=== PATIENT | male | born 1955 | race Caucasian/White ===

== ENCOUNTER 2022-10-21 01:53 | Inpatient (IN) | payer MEDICARE, MEDICAID, SELFPAY ==
[2022-10-21] VITALS (8 sets, daily range): BP systolic 102–136; BP diastolic 44–72; PULSE 75–88; RESP 16–18; TEMP 36.4–37.6; O2SAT 96–99; BMI 18.4
--- NOTE | ~2022-10-21 | CT_ITS ---
EXAMINATION: CT BRAIN W/O DATE: 10/24/2022 11:36 INDICATION: Headaches TECHNIQUE: Computed tomography (CT) of the head was performed without and with 100 cc Omnipaque 350 i ntravenous contrast. The dose-length product was 1210.67 mGy-cm. Automated exposure control and itera tive reconstruction technique were employed. COMPARISON: No prior studies for comparison. FINDINGS: Normal brain parenchymal volume for age. Normal hope-white differentiation. No acute intrac ranial hemorrhage, infarction, mass or mass effect. No abnormal contrast enhancement. No ventriculomegaly or midline shift. Midline sagittal images demonstrate a normal corpus callosum, c raniovertebral junction and sella turcica. Basilar cisterns are patent. Paranasal sinuses and mastoids are pneumatized. No depressed skull fractures. IMPRESSION: 1. No acute intracranial abnormality. Reviewed, dictated and finalized at location B. GE CONTROL SPECIALIST
--- NOTE | ~2022-10-21 | XR_ITS ---
EXAMINATION: XR chest 1V portable DATE: 10/23/2022 14:49 INDICATION: Right hilar mass status post bronchoscopy. TECHNIQUE: A single frontal view of the chest was obtained. COMPARISON: Chest CT 10/20/2022, radiographs 10/21/2022 FINDINGS: There is a moderate-sized right pleural effusion. There is a right hilar mass. There are ai rspace opacities at right lung base. No pneumothorax. The heart size is normal. IMPRESSION: 1. Right hilar mass, consistent with malignancy. 2. Airspace opacities at right lung base, consistent with pneumonia. 3. Moderate-sized right pleural effusion. Reviewed, dictated and finalized at location A. OM HARVESTER
--- NOTE | ~2022-10-21 | US_ITS ---
EXAMINATION: US thoracentesis DATE: 10/24/2022 12:31 INDICATION: pleural effusion TECHNIQUE: The procedure and its risks, benefits, and alternatives were discussed with the patient. P otential risks discussed included bleeding, infection, and pneumothorax. The patient understood the r isks and agreed to proceed. The skin was prepped and draped in sterile fashion. 1% lidocaine was used for local anesthesia. Under ultrasound guidance, a 5 Fr catheter with trochar was advanced into the right pleural effusion versus pleural thickening. Fluid could not be aspirated. The catheter was reginaldo kirill, and a dressing was applied. There were no immediate complications. FINDINGS: Ultrasound images demonstrate a right pleural effusion versus pleural thickening and the catheter wit hin the abnormality. IMPRESSION: 1. Small right pleural effusion versus pleural thickening. Ultrasound-guided thoracentesis yielded no fluid. Reviewed, dictated and finalized at location A. LE MAKER IMPRESSION: 1. Small right pleural effusion versus pleural thickening. Ultrasound-guided th oracentesis yielded no fluid.
--- NOTE | ~2022-10-21 | XR_ITS ---
EXAMINATION: [id number] DATE: 10/24/2022 11:23 INDICATION: Right pleural effusion status post thoracentesis. TECHNIQUE: Frontal and lateral views of the chest were obtained. COMPARISON: Chest 2 views 10/21/2022, chest CT 10/20/2022 FINDINGS: There is a small right pleural effusion versus pleural thickening. There are airspace opaci ties in right perihilar region and right lung base. No pneumothorax. The heart size is normal. There are multiple old healed right rib fractures. IMPRESSION: 1. Stable airspace opacities in right hilar perihilar region and at right lung base, likely a combina tion of malignancy, atelectasis, and pneumonia. 2. Stable small right pleural effusion versus pleural thickening. Reviewed, dictated and finalized at location A. ULAR PHYSICIAN IMPRESSION: 1. Stable airspace opacities in right hilar perihilar region and at right lung base, likely a combination of malignancy, atelectasis, and pneumonia. 2. Stable small right pleural effusion versus pleural thickening.
--- NOTE | ~2022-10-21 | XR_ITS ---
EXAMINATION: XR chest 2V Exam Date/Time: 10/21/2022 9:00 PAYROLL LEAD HISTORY: cough Comparison: None available. RESULT: Lines, tubes, and devices: None. Lungs and pleura: Bibasilar consolidation. Moderate right lateral costophrenic angle blunting. Cardiomediastinal silhouette: Unremarkable. Other: No acute osseous or upper abdominal finding. IMPRESSION: Right basilar atelectasis/consolidation. Moderate right effusion Reviewed, dictated and finalized at location K. OLL LEAD
--- NOTE | 2022-10-21 02:07 | ADMGEN ---
This patient, Aolnso Camara, was admitted to Medical Room 341-01. Patient/family oriented to hospital policies and general routines including ID bracelet, bed and alarms, visiting hours, pain management, procedures, bathroom and other care routines, personal items, smoking policy, room service/diet, and visiting hours. Information on how to activate the Rapid Response Team has been discussed. Patient/Family are encouraged to report perceived risks to care and to ask questions if they do not understand what they are told or what they should do.
--- NOTE | 2022-10-21 02:42 | PM.IMHP ---
H&P: HPI History of Present Illness Date/Time: 10/21/22 02:42 Chief Complaint: Productive cough Narrative: Patient is a 67-year-old male past medical history of crack cocaine use, tobacco abuse who presents to the ED with unrelenting productive cough and wheezing. patient has not seen a PCP in many years. he quit smoking crack cocaine 5 months ago. He has a 30 pack-year smoking history and has weaned himself down to 1 cigarette a day. She occasionally smokes marijuana. Since stopping crack cocaine he has had productive cough which comes and goes. His current cough is not relenting bring him to the ED for further evaluation. He notes he may lost around 20 lb over last couple years. He otherwise lives alone but depends on the sister as patient does not drive. Next of kin would be sister. He is currently living on social security. in the ED: Patient was seen at [facility]. his vitals were stable, little tachycardic. His agonist pneumonia and treated with Rocephin and Zithromax. Review of Systems Review of Systems: Constitutional: No Fever, No Chills, No Night Sweats, No Fatigue, No Malaise. He endorses unintentional weight loss ENT/Mouth: No Hearing Changes, No Ear Pain, No Nasal Congestion, No Sinus Pain, No Hoarseness, No sore throat, No Rhinorrhea, No Swallowing Difficulty Eyes: No Eye Pain, No Redness, No Vision Changes Cardiovascular: No Chest Pain, No Palpitations, No Dyspnea on Exertion, No Orthopnea, No Claudication, No Edema Respiratory: he endorses productive cough, wheezing Gastrointestinal: No Nausea, No Vomiting, No Diarrhea, No Constipation, No Abdominal Pain, No Heartburn, No Hematochezia, No Melena Genitourinary: No Dysuria, No Urinary Frequency, No Hematuria, No Urinary Incontinence, No Urgency Musculoskeletal: No Arthralgias, No Myalgias, No Joint Swelling, No Joint Stiffness, No Back Pain Skin: No Skin Lesions, No Pruritis, No Hair Changes Neuro: No Weakness, No Numbness, No Paresthesias, No Loss of Consciousness, No Syncope, No Dizziness, No Headache Psych: No Anxiety/Panic, No Depression, No Insomnia Heme: No Bruising, No Bleeding Lymph: No Adenopathy Endocrine: No Polyuria, No Polydipsia, No Temperature Intolerance [facility] Past Medical History Medical History Cocaine abuse Nicotine dependence with current use Family History Family History Mother COPD (chronic obstructive pulmonary disease) Sibling Lung cancer Father Brain cancer Social History Social History (Updated 10/21/22 @ 02:49 by Shoshana Cartagena DO) Social History: he lives alone,does not drive, living on social security. Only family is sister nearby helps get groceries. next of kin is sister. Years smoked: 34 Smoking status: Current every day smoker Tobacco type: cigarettes Alcohol intake: never Substance use: former Substance use type: crack/cocaine Last use: 5 months ago (05/2022) Lack of Transportation: No Lack of Food: Never True Current Housing: I Have Housing Concerned About Future Housing: No Difficulty Paying Gas/Electric Bills: No Difficulty Paying for Meds: No Currently Unemployed: No Education: High School Diploma/GED Difficulty w/ Childcare or Family Care: No Living arrangements: alone Additional occupation/education comments: on social security Spiritual care concerns: No Meds Home Medications and Allergies Home Medications Medication Instructions Recorded Confirmed Type ferrous sulfate 325 mg (65 mg 325 mg PO DAILY 10/21/22 10/21/22 History iron) tablet ibuprofen 600 mg tablet 600 mg PO Q6H PRN Pain 10/21/22 10/21/22 History multivitamin 1 tablet PO DAILY 10/21/22 10/21/22 History Allergies Allergy/AdvReac Type Severity Reaction Status Date / Time No Known Allergies Allergy Verified 10/21/22 02:31 Vital Signs hear
[2022-10-21] MEDS: SODIUM CHLORIDE 0.9% IV 1,000 ML 100 ML IV CONT ×2 (03:03→16:01)
[2022-10-21] MEDS: traZODone HCL 50 MG TABLET PO ×2 (03:03→20:27)
[2022-10-21 03:36] LABS: Basophils Absolute Auto 0.1 K/mm3 (0.0-0.1); Basophils Percent Auto 0.3 % (0.2-1.2); Hematocrit 29.7 % (42.0-52.0); Immature Granulocyte Absolute 0.33 K/mm3 (0.00-0.031); Immature Granulocyte Percent A 1.5 % (0-0.5); Lymphocytes Absolute Auto 1.36 K/mm3 (0.9-3.2); Lymphocytes Percent Auto 6.1 % (18.3-44.2); Mean Corpuscular HGB Conc 30.3 g/dl (32-36); Mean Corpuscular Hemoglobin 23.3 pg (26-34); Mean Corpuscular Volume 76.9 fl (80-100); Mean Platelet Volume 8.6 fl (7.4-10.4); Monocytes Absolute Auto 1.1 K/mm3 (0.1-0.6); Monocytes Percent Auto 5.1 % (2.6-8.5); Neutrophils Absolute Auto 19.2 K/mm3 (1.3-6.7); Platelet Count Result 343 k/mm3 (150-375); Red Blood Count 3.86 M/mm3 (4.6-6.20); Red Cell Distribution Width 17.3 % (11.5-14.5); White Blood Count 22.1 K/mm3 (4.5-10.0)
[2022-10-21 03:47] LABS: Alanine Aminotransferase 18 U/L (6-50); Albumin Level 3.1 g/dL (3.5-5.1); Alkaline Phosphatase 70 U/L (38-126); Anion Gap 7 mmol/L (8-16); Aspartate Amino Transferase 22 U/L (17-59); Bilirubin,Total 0.6 mg/dL (0.2-1.3); Blood Urea Nitrogen 15 mg/dL (9-20); Calcium 9.2 mg/dL (8.4-10.2); Carbon Dioxide 26 mmol/L (22-30); Chloride 100 mmol/L (98-107); Estimated CRCL calculation 54 ml/min; Estimated Glomerular Filt Rate > 60; Glucose 148 mg/dL (65-110); Magnesium 1.9 mg/dL (1.6-2.3); Potassium 3.8 mmol/L (3.4-5.0); Sodium 133 mmol/L (137-145)
[2022-10-21 04:39] LABS: Platelet Estimate Adequate (Adequate)
[2022-10-21 04:40] LABS: Anisocytosis 1+ (NORMAL); Hypochromasia 1+ (NORMAL); Microcytosis 1+ (NORMAL); Schistocytes None Seen (NORMAL)
[2022-10-21] MEDS: BENZONATATE 100 MG CAPSULE 200 MG PO ×3 (08:31→16:01)
[2022-10-21] MEDS: FERROUS SULFATE 324 MG TABLET PO (08:31)
[2022-10-21] MEDS: MULTIVITAMINS THERAPEUTIC TAB (*BKC) 1 TABLET PO (08:31)
--- NOTE | 2022-10-21 11:40 | PM.CNPUL ---
Assessment and Plan Assessment and plan (1) Community acquired pneumonia: Code(s): J18.9 - Pneumonia, unspecified organism Status: Acute Assessment and Plan: This 67-year-old man presented with chronic shortness of breath some right chest pain, marked leukocytosis, evidence of right lower lobe paraspinal mass extending into the right hilum, and positive blood cultures for Gram-positive cocci in chains drawn at another facility. The patient currently has no symptoms such as fever or hemoptysis and does not look septic. It appears as though he has got a large mass in the right lower lobe which is highly suspicious for malignancy. On the chest CT done at [facility] there was evidence of narrowing of adjacent bronchi and also narrowing of the right pulmonary artery branches suggestive of malignancy. He has been on antibiotics for possible community-acquired pneumonia. In view of positive blood cultures, we will extent coverage by adding vancomycin IV. Will get final culture report from other facility. Patient is scheduled for CT-guided biopsy. At this point will hold the CT-guided biopsy until we get a better picture about his leukocytosis/ positive blood cultures. (2) Pleural effusion: Code(s): J90 - Pleural effusion, not elsewhere classified Status: Acute (3) Lung mass: Code(s): R91.8 - Other nonspecific abnormal finding of lung field Status: Acute Assessment and Plan: for History of Present Illness History of Present Illness Consult date: 10/21/22 Chief complaint: New Lung Malignancy, Pneumonia Narrative: This 67-year-old man presented with shortness of breath and right chest pain. The patient has had shortness of breath with activities for at least 2 months. He also noted some right chest pain. He was recently evaluated by primary care physician at [place] where he reportedly underwent chest CT. chest CT images are now available for review. The chest CT showed no evidence of pulmonary embolism. There was a 10 cm paraspinal consolidation/mass extending into the perihilar region suspicious for malignancy, 1.5 cm indeterminate left adrenal nodule and 6 mm nodule in the left anterior lung apex. In addition there was small right pleural effusion; upon questioning the patient admitted having shortness of breath primarily on exertion for the last 2 months, some right upper chest pain but no fever chills night sweats or wheezing. He also stated he had some blood in his sputum that according to him was related to a dental problem. He had no true hemoptysis; he has lost significant amount of weight over the last year. In addition he has had headaches for which he was taking anti-inflammatory agents over the counter. Patient stated that he also had head MRI at [facility] which is not available for review. Patient used to smoke up to 2 packs per day for 30 years. He also used crack cocaine but stopped it approximately 5 months ago. Blood cultures drawn at [facility], [place], operated by [facility] showed Gram-positive cocci in chains in both bottles. Review of Systems Review of Systems: Patient reports some weight loss. He sleeps with the head elevated because of back pain. He has no acid reflux symptoms. He has had some loose bowel movements. He has had black stool as he has been on iron supplements for anemia. He has no urinary complaints. He has no lower extremity edema. The remainder of the 12 point system review is negative. [facility] Past Medical History Medical History Cocaine abuse Nicotine dependence with current use Family History Family History Mother COPD (chronic obstructive pulmonary disease) Sibling Lung cancer Father Brain cancer Social History Social History (Updated 10/21/22 @ 02:49 by Shoshana Cartagena DO) Social History: he lives alone,does not
[2022-10-22 04:16] VITALS: BP 100/69; PULSE 88; RESP 18; TEMP 37; O2SAT 98
[2022-10-22 05:46] LABS: Estimated CRCL calculation 61 ml/min; Estimated Glomerular Filt Rate > 60
[2022-10-22 08:16] LABS: Basophils Absolute Auto 0.1 K/mm3 (0.0-0.1); Basophils Percent Auto 0.8 % (0.2-1.2); Eosinophils Absolute Auto 0.1 K/mm3 (0-0.3); Eosinophils Percent Auto 0.9 % (0-4.4); Hematocrit 28.4 % (42.0-52.0); Hemoglobin 8.6 g/dL (14.0-18.0); Immature Granulocyte Absolute 0.08 K/mm3 (0.00-0.031); Immature Granulocyte Percent A 0.6 % (0-0.5); Lymphocytes Absolute Auto 1.52 K/mm3 (0.9-3.2); Lymphocytes Percent Auto 12.2 % (18.3-44.2); Mean Corpuscular HGB Conc 30.3 g/dl (32-36); Mean Corpuscular Hemoglobin 23.2 pg (26-34); Mean Corpuscular Volume 76.5 fl (80-100); Mean Platelet Volume 9.4 fl (7.4-10.4); Monocytes Absolute Auto 1.2 K/mm3 (0.1-0.6); Monocytes Percent Auto 9.8 % (2.6-8.5); Neutrophils Absolute Auto 9.4 K/mm3 (1.3-6.7); Neutrophils Percent Auto 75.7 % (45.5-73.1); Platelet Count Result 376 k/mm3 (150-375); Red Blood Count 3.71 M/mm3 (4.6-6.20); Red Cell Distribution Width 17.6 % (11.5-14.5); White Blood Count 12.4 K/mm3 (4.5-10.0)
[2022-10-22] MEDS: FERROUS SULFATE 324 MG TABLET PO (09:14)
[2022-10-22] MEDS: MULTIVITAMINS THERAPEUTIC TAB (*BKC) 1 TABLET PO (09:14)
[2022-10-22] MEDS: BENZONATATE 100 MG CAPSULE 200 MG PO ×3 (09:14→17:35)
[2022-10-22] MEDS: ENOXAPARIN 40 MG/0.4 ML SYRINGE SUB-Q (09:14)
[2022-10-22] MEDS: SODIUM CHLORIDE 0.9% IV 1,000 ML 100 ML IV CONT (09:15)
--- NOTE | 2022-10-22 09:29 | PM.IMPN ---
Progress Note: A&P Assessment and Plan (1) Community acquired pneumonia: Code(s): J18.9 - Pneumonia, unspecified organism Status: Acute Assessment and Plan: Continue IV azithromycin and Rocephin. Appreciate pulmonary input Blood cultures at outside hospital grew Gram-positive cocci in chains. IV vancomycin added per Pulmonary. Once cultures are finalized will taper antibiotics (2) Lung malignancy: Code(s): C34.90 - Malignant neoplasm of unspecified part of unspecified bronchus or lung Status: Acute Assessment and Plan: Pulmonary consulted. Patient will likely need CT-guided biopsy or bronchoscopy. Wait until blood cultures are finalized Has 30 pack-year smoking history and has cut down to 1 cigarette daily. I have counseled patient on smoking cessation 5 minutes Subjective Date/time seen: 10/22/22 09:29 Patient reports nausea and lack of sleep Review of Systems Review of Systems: All systems reviewed & are unremarkable except as noted in HPI and below Exam Narrative: GENERAL APPEARANCE: Well developed, well nourished, alert and cooperative, looking chronically ill and in no respiratory distress while breathing ambient air. SKIN: Inspection of the skin reveals no rashes, ulcerations or petechiae. HEENT: Sclerae anicteric and conjunctivae pink and moist. Extraocular movements were intact and pupils were equal, round. poor dental hygiene NECK: Supple. There was no thyroid enlargement, and no tenderness, or masses were felt. CHEST: Normal AP diameter and normal contour without any kyphoscoliosis. LUNGS: Auscultation of the lungs revealed decreased breath sounds right base posteriorly CARDIAC: There was a regular rate and rhythm without any murmurs, gallops, rubs. ABDOMEN: Soft and nontender with normal bowel sounds. There was no organomegaly. LYMPH NODES: No lymphadenopathy was appreciated in the neck. EXTREMITIES: No cyanosis, clubbing or edema. NEUROLOGIC: Alert and oriented x 3. Normal affect. Objective Data Vital Signs Vital Signs: Vital Signs - 24 hr 10/21/22 14:00 10/21/22 20:03 10/21/22 20:12 Temperature 99.6 F 98.5 F Pulse Rate 79 75 75 Respiratory Rate 18 18 16 Blood Pressure 136/44 L 102/72 Pulse Oximetry 99 99 97 Oxygen Delivery Room Air 10/21/22 20:00 10/21/22 22:37 10/22/22 04:16 Temperature 98.6 F Pulse Rate 75 88 88 Respiratory Rate 16 16 18 Blood Pressure 100/69 Pulse Oximetry 97 96 98 Oxygen Delivery Room Air Room Air 10/22/22 08:00 Temperature Pulse Rate Respiratory Rate Blood Pressure Pulse Oximetry Oxygen Delivery Room Air Intake/Output Intake/Output: Intake & Output 10/19/22 10/20/22 10/21/22 10/22/22 23:59 23:59 23:59 23:59 Intake Total 2630 / 2630 1800 / 1800 Output Total 1250 / 1250 500 / 500 Balance 1380 / 1380 1300 / 1300 Meds/Results Medications: Active Medications Generic Name Dose Route Start Last Admin Trade Name Freq PRN Reason Stop Dose Admin Acetaminophen 650 mg 10/21/22 02:34 Acetaminophen 325 Mg Tablet PO Q4H PRN Mild Pain (1-3) or Fever Hydrocodone Bitart/Acetaminophen 1 tab 10/21/22 02:34 Hydrocodone/Acetaminophen (*Crx) 5-325 Mg Tablet PO Q4H PRN Moderate Pain (4-6) Al Hydrox/Mg Hydrox/Simethicone 30 ml 10/21/22 02:34 Mag Hydrox/Al Hydrox/Simeth 30 Ml Udc PO QID PRN Dyspepsia Albuterol 2.5 mg 10/21/22 02:41 Albuterol Sulfate Neb 2.5 Mg/3 Ml Inh INHALATION Q6HRT PRN Shortness Of Breath Benzonatate 200 mg 10/21/22 09:00 10/22/22 09:14 Benzonatate 100 Mg Capsule PO 200 mg TID IRASEMA Administration Enoxaparin Sodium 40 mg 10/22/22 09:00 10/22/22 09:14 Enoxaparin 40 Mg/0.4 Ml Syringe SUB-Q 40 mg DAILY IRASEMA Administration Ferrous Sulfate 324 mg 10/21/22 08:00 10/22/22 09:14 Ferrous Sulfate 324 Mg Tablet PO 324 mg DAILY@0800 IRASEMA Administration Sodium Chloride 1,000 mls @ 100 mls/hr 10/03
--- NOTE | 2022-10-22 09:47 | PM.PNPUL ---
Progress Note: A&P Assessment and Plan (1) Lung mass: Code(s): R91.8 - Other nonspecific abnormal finding of lung field Status: Acute Assessment and Plan: ?This 67-year-old man presented with chronic shortness of breath, right chest pain, marked leukocytosis, evidence of right lower lobe paraspinal mass extending into the right hilum, and? positive blood cultures for Gram-positive cocci in chains drawn at another facility. The patient currently has no symptoms such as fever or hemoptysis and does not look septic.? It appears as though he has got a large mass in the right lower lobe which is highly suspicious for malignancy.? On the chest CT done at [facility] there was evidence of narrowing of adjacent bronchi and also narrowing of the right pulmonary artery branches suggestive of malignancy.? He has been on antibiotics for possible community-acquired pneumonia.? In view of positive blood cultures at the other facility, we added vancomycin IV. ? Will get final culture report from other facility. blood cultures drawn here negative so far. Sputum culture also negative. Plan: Patient will be scheduled for bronchoscopy in a.m.? hold Lovenox subQ, keep patient NPO after midnight, DC vibrating vest, decrease IV fluids continue with current antibiotics for now. (2) Pleural effusion: Code(s): J90 - Pleural effusion, not elsewhere classified Status: Acute (3) Community acquired pneumonia: Code(s): J18.9 - Pneumonia, unspecified organism Status: Acute Subjective Date/time seen: 10/22/22 09:47 Patient has no new respiratory symptoms. He has been afebrile coughing up clear phlegm. No hemoptysis. Shortness of breath essentially unchanged. Complaining of upset stomach and diarrhea. Did not tolerate vibrating vest treatment. On antibiotics for possible respiratory infection. Review of Systems Review of Systems: All systems reviewed & are unremarkable except as noted in HPI and below Exam Narrative: GENERAL APPEARANCE: Well developed, well nourished, alert and cooperative, looking chronically ill and in no respiratory distress while breathing ambient air. SKIN: Inspection of the skin reveals no rashes, ulcerations or petechiae. HEENT: Sclerae anicteric and conjunctivae pink and moist. Extraocular movements were intact and pupils were equal, round. poor dental hygiene NECK: Supple. There was no thyroid enlargement, and no tenderness, or masses were felt. CHEST: Normal AP diameter and normal contour without any kyphoscoliosis. LUNGS: Auscultation of the lungs revealed decreased breath sounds right base posteriorly CARDIAC: There was a regular rate and rhythm without any murmurs, gallops, rubs. ABDOMEN: Soft and nontender with normal bowel sounds. There was no organomegaly. LYMPH NODES: No lymphadenopathy was appreciated in the neck. EXTREMITIES: No cyanosis, clubbing or edema. NEUROLOGIC: Alert and oriented x 3. Normal affect. Objective Data Vital Signs Vital Signs: Vital Signs - 24 hr 10/21/22 14:00 10/21/22 20:03 10/21/22 20:12 Temperature 37.6 C 36.9 C Pulse Rate 79 75 75 Respiratory Rate 18 18 16 Blood Pressure 136/44 L 102/72 Pulse Oximetry 99 99 97 Oxygen Delivery Room Air 10/21/22 20:00 10/21/22 22:37 10/22/22 04:16 Temperature 37.0 C Pulse Rate 75 88 88 Respiratory Rate 16 16 18 Blood Pressure 100/69 Pulse Oximetry 97 96 98 Oxygen Delivery Room Air Room Air 10/22/22 08:00 Temperature Pulse Rate Respiratory Rate Blood Pressure Pulse Oximetry Oxygen Delivery Room Air Intake/Output Intake/Output: Intake & Output 10/19/22 10/20/22 10/21/22 10/22/22 23:59 23:59 23:59 23:59 Intake Total 2630 1800 Output Total 1250 500 Balance 1380 1300 Meds/Results Medications: Active Medications Generic Name Dose Route Start Last Admin Trade Name Freq PRN Reason Stop Dose Admin Acetaminophen 650 mg 10/21/22 02:34 Acetaminophen 325
[2022-10-22 11:01] LABS: INR 1.4; Prothrombin Time 16.5 Seconds (11.1-14.7)
[2022-10-22 14:00] VITALS: BP 123/69; PULSE 68; RESP 16; TEMP 36.6; O2SAT 99
[2022-10-22 19:27] VITALS: BP 124/70; PULSE 82; RESP 18; TEMP 36.9; O2SAT 97
[2022-10-22 20:00] VITALS: PULSE 82; RESP 18; O2SAT 97
[2022-10-22] MEDS: traZODone HCL 50 MG TABLET PO (22:55)
[2022-10-23] VITALS (11 sets, daily range): BP systolic 100–126; BP diastolic 51–81; PULSE 56–92; RESP 16–25; TEMP 36.5–37.1; O2SAT 96–100; BMI 18.4
[2022-10-23 08:07] LABS: Basophils Absolute Auto 0.1 K/mm3 (0.0-0.1); Basophils Percent Auto 1.2 % (0.2-1.2); Eosinophils Absolute Auto 0.2 K/mm3 (0-0.3); Eosinophils Percent Auto 2.4 % (0-4.4); Hematocrit 29.7 % (42.0-52.0); Hemoglobin 9.1 g/dL (14.0-18.0); Immature Granulocyte Absolute 0.05 K/mm3 (0.00-0.031); Immature Granulocyte Percent A 0.6 % (0-0.5); Lymphocytes Absolute Auto 2.09 K/mm3 (0.9-3.2); Lymphocytes Percent Auto 23.5 % (18.3-44.2); Mean Corpuscular HGB Conc 30.6 g/dl (32-36); Mean Corpuscular Hemoglobin 23.5 pg (26-34); Mean Corpuscular Volume 76.5 fl (80-100); Mean Platelet Volume 8.9 fl (7.4-10.4); Monocytes Percent Auto 11.1 % (2.6-8.5); Neutrophils Absolute Auto 5.4 K/mm3 (1.3-6.7); Neutrophils Percent Auto 61.2 % (45.5-73.1); Platelet Count Result 376 k/mm3 (150-375); Red Blood Count 3.88 M/mm3 (4.6-6.20); Red Cell Distribution Width 17.6 % (11.5-14.5); White Blood Count 8.9 K/mm3 (4.5-10.0)
[2022-10-23 08:16] LABS: Anion Gap 6 mmol/L (8-16); Blood Urea Nitrogen 11 mg/dL (9-20); Carbon Dioxide 27 mmol/L (22-30); Chloride 104 mmol/L (98-107); Estimated CRCL calculation 69 ml/min; Estimated Glomerular Filt Rate > 60; Glucose 101 mg/dL (65-110); Phosphorus 3.2 mg/dL (2.5-4.5); Potassium 3.8 mmol/L (3.4-5.0); Sodium 137 mmol/L (137-145)
[2022-10-23] MEDS: FERROUS SULFATE 324 MG TABLET PO (08:43)
[2022-10-23] MEDS: BENZONATATE 100 MG CAPSULE 200 MG PO ×2 (08:43→12:02)
[2022-10-23] MEDS: MULTIVITAMINS THERAPEUTIC TAB (*BKC) 1 TABLET PO (08:43)
[2022-10-23 08:47] LABS: INR 1.3; Prothrombin Time 15.3 Seconds (11.1-14.7)
--- NOTE | 2022-10-23 10:14 | PM.IMPN ---
Progress Note: A&P Assessment and Plan (1) Community acquired pneumonia: Code(s): J18.9 - Pneumonia, unspecified organism Status: Acute Assessment and Plan: patient presents with a cough. Chest CT at the outside hospital showed a 10 cm paraspinal consolidation/ mass extending into the perihilar region suspicious for malignancy. Is also a small right pleural effusion. Does have poor dentition. He had a brain MRI at [facility] but results are unknown. Currently on Rocephin, azithromycin vancomycin. Blood cultures here are no growth to date. Will need to follow up on blood culture results at the outside hospital. Will change to Unasyn cover for anaerobic bacteria. (2) Lung mass: Code(s): R91.8 - Other nonspecific abnormal finding of lung field Status: Acute Assessment and Plan: Pulmonary consulted. He has a30 pack-year smoking history and has cut down to 1 cigarette daily. Consider abscess as well as malignancy. Patient will have bronchoscopy today. Appreciate Pulmonary input. (3) Nicotine dependence with current use: Code(s): F17.200 - Nicotine dependence, unspecified, uncomplicated Status: Acute Assessment and Plan: Patient was educated about the benefits of smoking cessation. (4) Cocaine abuse: Code(s): F14.10 - Cocaine abuse, uncomplicated Status: Acute Assessment and Plan: Patient was educated about the benefits of abstaining from drug use. He is agreeable for HIV and hepatitis testing. (5) Anemia: Code(s): D64.9 - Anemia, unspecified Status: Acute Assessment and Plan: Patient with microcytic anemia. He is currently on iron. Consider GI malignancy with mets to lung. Will check iron studies, ferritin and B12. Stool guaiac as well. Subjective Date/time seen: 10/23/22 10:14 Interval history: 67yo male with hx of cocaine use here for cough and found to have lung mass and PNA. Assuming care. Chart reviewed. Patient denies feeling short of breath. Still has cough productive clear sputum. No hemoptysis. No abdominal pain. No chest pain. Slight headache today. Exam Narrative: AF 98.0 118/79 76 16 99% ra Gen - NARD Chest -Decreased breath sounds right mid and lower lung field. Dull to percussion the right lower lung field. Normal respiratory rate. CV - RRR S1/S2 Abd - Soft, NT/ND, Positive BS Ext - No pedal edema Psych - Nml mood and affect Skin - Warm and dry Objective Data Vital Signs Vital Signs: Vital Signs - 24 hr 10/22/22 14:00 10/22/22 19:27 10/22/22 20:00 Temperature 97.9 F 98.4 F Pulse Rate 68 82 82 Respiratory Rate 16 18 18 Blood Pressure 123/69 124/70 Pulse Oximetry 99 97 97 Oxygen Delivery Room Air 10/23/22 04:18 Temperature 98 F Pulse Rate 76 Respiratory Rate 16 Blood Pressure 118/79 Pulse Oximetry 99 Oxygen Delivery Intake/Output Intake/Output: Intake & Output 10/20/22 10/21/22 10/22/22 10/23/22 23:59 23:59 23:59 23:59 Intake Total 2630 3494 800 Output Total 1250 1600 1100 Balance 1380 1894 -300 Meds/Results Medications: Active Medications Generic Name Dose Route Start Last Admin Trade Name Freq PRN Reason Stop Dose Admin Acetaminophen 650 mg 10/21/22 02:34 Acetaminophen 325 Mg Tablet PO Q4H PRN Mild Pain (1-3) or Fever Hydrocodone Bitart/Acetaminophen 1 tab 10/21/22 02:34 Hydrocodone/Acetaminophen (*Crx) 5-325 Mg Tablet PO Q4H PRN Moderate Pain (4-6) Al Hydrox/Mg Hydrox/Simethicone 30 ml 10/21/22 02:34 Mag Hydrox/Al Hydrox/Simeth 30 Ml Udc PO QID PRN Dyspepsia Albuterol 2.5 mg 10/21/22 02:41 Albuterol Sulfate Neb 2.5 Mg/3 Ml Inh INHALATION Q6HRT PRN Shortness Of Breath Benzonatate 200 mg 10/21/22 09:00 10/23/22 08:43 Benzonatate 100 Mg Capsule PO 200 mg TID IRASEMA Administration Enoxaparin Sodium 40 mg 10/22/22 09:00 10/22/22
[2022-10-23 11:26] LABS: Iron 26 ug/dL (49-181); Percent Iron Saturation 12 % (20-50)
[2022-10-23 11:31] LABS: Hepatitis B Surface Antigen Negative (Negative)
[2022-10-23 11:35] LABS: HIV 1/2 Ab P24 Ag Result Negative (Negative)
[2022-10-23 11:37] LABS: HAV RESULT Negative (Negative); Hepatitis B Core IgM Result Negative (Negative)
[2022-10-23 11:49] LABS: Hepatitis C Virus Antibody Negative (Negative)
[2022-10-23 12:01] LABS: Folic Acid 12.3 ng/mL (2.76->20)
[2022-10-23] MEDS: AMPICILLIN SULB 3 GM/NS 100 ML 3 GM/100 ML VIAL IVPB ×3 (12:02→23:24)
[2022-10-23] MEDS: ACETAMINOPHEN 325 MG TABLET 650 MG PO (12:03)
[2022-10-23] MEDS: LACTATED RINGERS 1,000 ML 150 ML IV CONT (12:39)
--- NOTE | 2022-10-23 13:24 | WPDANESEPPF ---
Anes - Initial Pre Proc Eval Procedure: Operation Date: 10/23/22 13:30 Proposed Procedures p Flexible Bronchoscopy - Yordan Guzman MD Date/Time: 10/23/22 13:24 Surgeon: Tino Leroy MD Pre Op Diagnosis: New Lung Malignancy, Pneumonia Patient Data Age: 67 Gender: M Height: 1.7 m Weight: 53.5 kg Last Vital Signs Temp 97.7 F 10/23/22 12:35 Pulse 56 L 10/23/22 12:35 Resp 20 10/23/22 12:35 BP 125/81 10/23/22 12:35 Pulse Ox 98 10/23/22 12:35 O2 Del Method Room Air 10/23/22 12:35 Allergies Allergy/AdvReac Type Severity Reaction Status Date / Time No Known Allergies Allergy Verified 10/23/22 12:30 Home Medications Medication Instructions Recorded Confirmed Type ferrous sulfate 325 mg (65 mg 325 mg PO DAILY 10/21/22 10/21/22 History iron) tablet ibuprofen 600 mg tablet 600 mg PO Q6H PRN Pain 10/21/22 10/21/22 History multivitamin 1 tablet PO DAILY 10/21/22 10/21/22 History Laboratory Tests 10/23/22 10/23/22 10/23/22 07:46 07:46 08:26 WBC 8.9 K/mm3 K/mm3 (4.5-10.0) RBC 3.88 M/mm3 L M/mm3 (4.6-6.20) Hgb 9.1 g/dL L g/dL (14.0-18.0) Hct 29.7 % L % (42.0-52.0) MCV 76.5 fl L fl (80-100) MCH 23.5 pg L pg (26-34) MCHC 30.6 g/dl L g/dl (32-36) RDW 17.6 % H % (11.5-14.5) Plt Count 376 k/mm3 H k/mm3 (150-375) MPV 8.9 fl fl (7.4-10.4) Immature Gran % (Auto) 0.6 % H % (0-0.5) Neut % (Auto) 61.2 % % (45.5-73.1) Lymph % (Auto) 23.5 % % (18.3-44.2) [place] % (Auto) 11.1 % H % (2.6-8.5) Eos % (Auto) 2.4 % % (0-4.4) Baso % (Auto) 1.2 % % (0.2-1.2) Lymph # (Auto) 2.09 K/mm3 K/mm3 (0.9-3.2) [place] # (Auto) 1.0 K/mm3 H K/mm3 (0.1-0.6) Eos # (Auto) 0.2 K/mm3 K/mm3 (0-0.3) Baso # (Auto) 0.1 K/mm3 K/mm3 (0.0-0.1) Abs Immat Gran (auto) 0.05 K/mm3 H K/mm3 (0.00-0.031) Absolute Neuts (auto) 5.4 K/mm3 K/mm3 (1.3-6.7) Absolute Nucleated RBC 0.0 K/mm3 K/mm3 (0.0-0.012) Nucleated RBC % 0.0 % % (0.0-0.2) PT 15.3 Seconds H Seconds (11.1-14.7) INR 1.3 Sodium 137 mmol/L mmol/L (137-145) Potassium 3.8 mmol/L mmol/L (3.4-5.0) Chloride 104 mmol/L mmol/L (98-107) Carbon Dioxide 27 mmol/L mmol/L (22-30) Anion Gap 6 mmol/L L mmol/L (8-16) BUN 11 mg/dL mg/dL (9-20) Creatinine 0.70 mg/dL mg/dL (0.7-1.3) Estim Creat Clear Calc 69 ml/min ml/min Estimated GFR > 60 (59 - ) Glucose 101 mg/dL mg/dL (65-110) Calcium 9.0 mg/dL mg/dL (8.4-10.2) Phosphorus 3.2 mg/dL mg/dL (2.5-4.5) Magnesium 2.0 mg/dL mg/dL (1.6-2.3) Iron TIBC % Saturation Ferritin Albumin 3.0 g/dL L g/dL (3.5-5.1) Vitamin B12 Folate Hepatitis A IgM Ab Hep Bs Antigen Hep B Core IgM Ab Hepatitis C Ab Screen HIV 1&2 Ab/P24 Ag 4thGn 10/23/22 10/23/22 10/23/22 08:26 08:26 08:26 WBC RBC Hgb Hct MCV MCH MCHC RDW Plt Count MPV Immature Gran % (Auto) Neut % (Auto) Lymph % (Auto) [place] % (Auto) Eos % (Auto) Baso % (Auto) Lymph # (Auto) [place] # (Auto) Eos # (Auto) Baso # (Auto) Abs Immat Gran (auto) Absolute Neuts (auto) Absolute Nucleated RBC Nucleated RBC % PT INR Sodium Potassium Chloride Carbon
[2022-10-23] MEDS: LIDOCAINE HCL 2% LOCAL INJ 20 ML VIAL INFILTRATE (14:14)
[2022-10-23] MEDS: SODIUM CHLORIDE 0.9% IV 500 ML BAG 25 ML IRRIGATION (14:15)
--- NOTE | 2022-10-23 14:16 | SUR.OPER ---
2ml lidocaine and 25ml Normal saline intrabronchial. 100ml out in bronchial washings.
--- NOTE | 2022-10-23 15:45 | PM.PNPUL ---
Progress Note: A&P Assessment and Plan (1) Lung mass: Code(s): R91.8 - Other nonspecific abnormal finding of lung field Status: Acute Assessment and Plan: ?This 67-year-old man presented with chronic shortness of breath, right chest pain, marked leukocytosis, evidence of right lower lobe paraspinal mass extending into the right hilum, and? positive blood cultures for Gram-positive cocci in chains drawn at another facility. The patient currently has no symptoms such as fever or hemoptysis and does not look septic.? It appears as though he has got a large mass in the right lower lobe which is highly suspicious for malignancy.? On the chest CT done at [facility] there was evidence of narrowing of adjacent bronchi and also narrowing of the right pulmonary artery branches suggestive of malignancy.? He has been on antibiotics for possible community-acquired pneumonia.? In view of positive blood cultures at the other facility, we added vancomycin IV. blood cultures drawn here negative so far. Sputum culture also negative. Patient underwent bronchoscopy earlier today. Bronchoscopy showed large tumor occluding bronchus intermedius right after take off of the right upper lobe bronchus. tumor extended into the orifice of the right upper lobe bronchus as well. Could not advance scope in either the right upper or right lower lobe due to narrowing of bronchi. multiple biopsies were obtained from the intraluminal mass. Plan: Continue with current antibiotic regimen for possible lower respiratory tract infection/obstructive pneumonia. Need to get final blood culture report from other facility. On today's post procedure x-ray there was evidence of increasing right pleural effusion for which the patient will need thoracentesis to exclude empyema versus metastatic disease. I would suggest oncology consultation as well. Case was discussed with Dr. Davis. (2) Pleural effusion: Code(s): J90 - Pleural effusion, not elsewhere classified Status: Acute (3) Community acquired pneumonia: Code(s): J18.9 - Pneumonia, unspecified organism Status: Acute Subjective Date/time seen: 10/23/22 15:45 Respiratory status unchanged over the last 24 hours. Patient has no fever chills hemoptysis chest pain or wheezing. He underwent bronchoscopy with bronchial biopsy earlier today. Post bronchoscopy he remains on room air. Review of Systems Review of Systems: All systems reviewed & are unremarkable except as noted in HPI and below Exam Narrative: GENERAL APPEARANCE: Well developed, well nourished, alert and cooperative, looking chronically ill and in no respiratory distress while breathing ambient air. SKIN: Inspection of the skin reveals no rashes, ulcerations or petechiae. HEENT: Sclerae anicteric and conjunctivae pink and moist. Extraocular movements were intact and pupils were equal, round. poor dental hygiene NECK: Supple. There was no thyroid enlargement, and no tenderness, or masses were felt. CHEST: Normal AP diameter and normal contour without any kyphoscoliosis. LUNGS: Auscultation of the lungs revealed decreased breath sounds right base posteriorly CARDIAC: There was a regular rate and rhythm without any murmurs, gallops, rubs. ABDOMEN: Soft and nontender with normal bowel sounds. There was no organomegaly. LYMPH NODES: No lymphadenopathy was appreciated in the neck. EXTREMITIES: No cyanosis, clubbing or edema. NEUROLOGIC: Alert and oriented x 3. Normal affect. Objective Data Vital Signs Vital Signs: Vital Signs - 24 hr 10/22/22 19:27 10/22/22 20:00 10/23/22 04:18 Temperature 36.9 C 36.6 C Pulse Rate 82 82 76 Respiratory Rate 18 18 16 Blood Pressure 124/70 118/79 Pulse Oximetry 97 97 99 Oxygen Delivery Room Air 10/23/22 08:30 10/23/22 12:35 10/23/22 14:17 Temperature 36.5 C 36.6 C Pulse Rate 56 L 91 Respiratory Rate 20 23 H Blood Pressure 125/81 100/64 Pulse Oximetry 98 100 Oxygen
[2022-10-23] MEDS: BENZOCAINE/MENTHOL (*BKC) 18 EA LOZENGE 1 LOZENGE PO (17:28)
--- NOTE | 2022-10-23 19:19 | PDONCCN ---
[facility] - Date of Consult Date/Time: 10/23/22 19:19 Requesting Physician: Tino Leroy MD Primary Care Provider: HIV/AIDS CARE NURSE PHYSICIAN - Consult Narrative Reason for consult: Lung cancer Narrative: Alonso Camara is a 67 year old male with history of smoking nodules down to 1 cigarette a day along with history of drug use came into the hospital with increasing shortness of breath and productive cough. He has lost more than 15 lb weight. He denies any hemoptysis but does have occasional headaches. CT scan was performed at [facility] showed narrowing of adjacent bronchi along with large mass in the right lower lobe suspicious for malignancy. Patient had bronchoscopy done today that showed large intraluminal mass had or vice of the bronchus intermedius in the right upper lobe bronchus. Biopsies were taken. Labs showed microcytic anemia. He denies any bleeding. Vitamin B12 level and iron level also came back low. Chest x-ray showed moderate size right-sided pleural effusion. Review of Systems - Review of Systems All systems reviewed & are unremarkable except as noted in [facility] and [facility] Medical History: Medical History (Last Updated 10/23/22 @ 10:17 by Lionel Davis MD) Cocaine abuse Nicotine dependence with current use Family History: Family History (Last Reviewed 10/21/22 @ 02:48 by Shoshana Cartagena DO) Mother COPD (chronic obstructive pulmonary disease) Sibling Lung cancer Father Brain cancer - Social History Social History: Social History (Last Updated 10/21/22 @ 02:49 by Shoshana Cartagena DO) Alcohol Use: Alcohol intake: never Substance Use: Substance use: former Substance use type: crack/cocaine Last use: 5 months ago (05/2022) Others: Spiritual care concerns: No Living Arrangements: Living arrangements: alone Smoking Status: Smoking status: Current every day smoker Tobacco type: cigarettes Smoking Pack-years: Years smoked: 34 Social Determinants of Health: Has the Lack of Transportation Kept You From Medical Appointments or From Getting Medications?: No Within the Past 12 Months, Were You Worried Whether Your Food Would Run Out Before You Got Money to Buy More?: Never True What is Your Housing Situation Today?: I Have Housing Are You Worried That in the Next 2 Months, You May Not Have Your Own Housing to Live In?: No Do You Have Trouble Paying Your Heating Or Electricity Bill?: No Do You Have Trouble Paying For Medicines?: No Are You Currently Unemployed and Looking for Work?: No Highest Level of Education Completed: High School Diploma/GED Do You Have Trouble With Childcare or the Care of a Family Member?: No Exam - Vital Signs Vital Signs - 24 hr 10/22/22 19:27 10/22/22 20:00 10/23/22 04:18 Temperature 36.9 C 36.6 C Pulse Rate 82 82 76 Respiratory Rate 18 18 16 Blood Pressure 124/70 118/79 Pulse Oximetry 97 97 99 Oxygen Delivery Room Air 10/23/22 08:30 10/23/22 12:35 10/23/22 14:17 Temperature 36.5 C 36.6 C Pulse Rate 56 L 91 Respiratory Rate 20 23 H Blood Pressure 125/81 100/64 Pulse Oximetry 98 100 Oxygen Delivery Room Air Room Air Room Air 10/23/22 14:27 10/23/22 14:37 10/23/22 14:47 Temperature Pulse Rate 86 85 76 Respiratory Rate 20 25 H 20 Blood Pressure 108/65 108/70 113/75 Pulse Oximetry 100 100 100 Oxygen Delivery Room Air Room Air Room Air 10/23/22 14:57 10/23/22 15:06 10/23/22 15:21 Temperature 37.1 C Pulse Rate 79 80 65 Respiratory Rate 24 H 22 H 18 Blood Pressure 111/74 109/75 113/74 Pulse Oximetry 99 100 96 Oxygen Delivery Room Air Room Air - Exam HEENT: EOMI, PERRLA, sclera clear Neck: No: JVD Lungs: clear to auscultation, normal air movement Heart: no murmurs, gallops, or rubs, regular rhythm Abdomen: abdomen soft Extremities: normal pulses Integumentary: no abnormalities Neurological: normal spee
[2022-10-23 21:37] LABS: IFOB Positive Control Positive; Immunochemical Fecal Occult Bl Negative (N)
[2022-10-23] MEDS: traZODone HCL 50 MG TABLET PO (23:23)
[2022-10-24] MEDS: ACETAMINOPHEN 325 MG TABLET 650 MG PO (02:18)
[2022-10-24 04:32] VITALS: BP 122/80; PULSE 67; RESP 18; TEMP 36.6; O2SAT 100
[2022-10-24] MEDS: AMPICILLIN SULB 3 GM/NS 100 ML 3 GM/100 ML VIAL IVPB ×3 (05:44→17:06)
[2022-10-24 06:04] LABS: Basophils Absolute Auto 0.1 K/mm3 (0.0-0.1); Basophils Percent Auto 1.3 % (0.2-1.2); Eosinophils Absolute Auto 0.3 K/mm3 (0-0.3); Eosinophils Percent Auto 3.2 % (0-4.4); Hemoglobin 8.3 g/dL (14.0-18.0); Immature Granulocyte Absolute 0.11 K/mm3 (0.00-0.031); Immature Granulocyte Percent A 1.2 % (0-0.5); Lymphocytes Absolute Auto 2.09 K/mm3 (0.9-3.2); Lymphocytes Percent Auto 22.6 % (18.3-44.2); Mean Corpuscular HGB Conc 29.6 g/dl (32-36); Mean Corpuscular Hemoglobin 22.9 pg (26-34); Mean Corpuscular Volume 77.3 fl (80-100); Mean Platelet Volume 8.8 fl (7.4-10.4); Monocytes Absolute Auto 1.1 K/mm3 (0.1-0.6); Monocytes Percent Auto 11.6 % (2.6-8.5); Neutrophils Absolute Auto 5.6 K/mm3 (1.3-6.7); Neutrophils Percent Auto 60.1 % (45.5-73.1); Platelet Count Result 373 k/mm3 (150-375); Red Blood Count 3.62 M/mm3 (4.6-6.20); Red Cell Distribution Width 17.4 % (11.5-14.5); White Blood Count 9.3 K/mm3 (4.5-10.0)
[2022-10-24 06:25] LABS: Alanine Aminotransferase 33 U/L (6-50); Albumin Level 2.9 g/dL (3.5-5.1); Alkaline Phosphatase 109 U/L (38-126); Anion Gap 8 mmol/L (8-16); Aspartate Amino Transferase 37 U/L (17-59); Bilirubin,Total 0.3 mg/dL (0.2-1.3); Blood Urea Nitrogen 11 mg/dL (9-20); Calcium 8.6 mg/dL (8.4-10.2); Carbon Dioxide 27 mmol/L (22-30); Chloride 104 mmol/L (98-107); Estimated CRCL calculation 69 ml/min; Estimated Glomerular Filt Rate > 60; Glucose 108 mg/dL (65-110); Lactate Dehydrogenase 123 U/L (120-246); Potassium 3.6 mmol/L (3.4-5.0); Sodium 139 mmol/L (137-145)
--- NOTE | 2022-10-24 08:46 | PM.IMPN ---
Progress Note: A&P Assessment and Plan (1) Community acquired pneumonia: Code(s): J18.9 - Pneumonia, unspecified organism Status: Acute Assessment and Plan: Patient presents with a cough. Chest CT at the outside hospital showed a 10 cm paraspinal consolidation/ mass extending into the perihilar region suspicious for malignancy. He also has a right pleural effusion. Does have poor dentition. He had a brain imaging at [facility] but results are unknown. Was on Rocephin, azithromycin vancomycin but rocephin changed to Unasyn. Blood cultures here are no growth to date. Sputum pending. BCx at the OSH showing alpha strept but final results still pending. Discussed with pulmonary (2) Lung mass: Code(s): R91.8 - Other nonspecific abnormal finding of lung field Status: Acute Assessment and Plan: Pulmonary consulted. He has a30 pack-year smoking history and has cut down to 1 cigarette daily. Bronchoscopy 10/23 showing a large intraluminal mass at orifice right bronchus intermedius after takeoff of the right upper lobe bronchus. The mass occludes almost the entirety of the lumen and extends into the bronchus of the right upper lobe. Multiple biopsies taken. Follow up on results. Appreciate Pulmonary input. Given his HUGHES, will try to obtai a copy of the neuroimaging done at [place]. Given the concern for infection and now cancer, will proceed with right thoracentesis. Oncology consulted and apprecaite their input. (3) Anemia: Code(s): D64.9 - Anemia, unspecified Status: Acute Assessment and Plan: Patient with microcytic anemia. He is currently on iron. Stool guaiac negative. Consider GI malignancy with mets to lung. Iron studies mostly consistent with anemia of chronic disease. B12 low end of normal. Check MMA. Advance iron frequency. B12 given. (4) Nicotine dependence with current use: Code(s): F17.200 - Nicotine dependence, unspecified, uncomplicated Status: Acute Assessment and Plan: Patient was educated about the benefits of smoking cessation. (5) Cocaine abuse: Code(s): F14.10 - Cocaine abuse, uncomplicated Status: Acute Assessment and Plan: Patient was educated about the benefits of abstaining from drug use. HIV and hepatitis testing was negative. Subjective Date/time seen: 10/24/22 08:46 Interval history: 67yo male with hx of cocaine use here for cough and found to have lung mass and PNA. No SOB but has LUBIN when walking briskly in the halls. No CP. Still with headache. He has poor dentiion and complains of mouth pain last night but not today. He has a hx of sebaceous cysts and he has a few on his back that hurt. No numbness, tingling or weakness to his extremities. He had neuroimaging in [place] recently. Exam Narrative: AF 97.9 122/80 67 18 100% ra Gen - NARD HEENT - poor dention with broken teeth. no oral lesions or thrush Chest -Decreased breath sounds right mid and lower lung field. mild coarse BS diffusely. CV - RRR S1/S2 Abd - Soft, NT/ND, Positive BS Ext - No pedal edema Psych - Nml mood and affect Skin - Warm and dry. small sebaceous cysts mid back without evidence of infection. Objective Data Vital Signs Vital Signs: Vital Signs - 24 hr 10/23/22 12:35 10/23/22 14:17 10/23/22 14:27 Temperature 97.7 F 98 F Pulse Rate 56 L 91 86 Respiratory Rate 20 23 H 20 Blood Pressure 125/81 100/64 108/65 Pulse Oximetry 98 100 100 Oxygen Delivery Room Air Room Air Room Air 10/23/22 14:37 10/23/22 14:47 10/23/22 14:57 Temperature Pulse Rate 85 76 79 Respiratory Rate 25 H 20 24 H Blood Pressure 108/70 113/75 111/74 Pulse Oximetry 100 100 99 Oxygen Delivery Room Air Room Air Room Air 10/23/22 15:06 10/23/22 15:21 10/23/22 21:14 Temperature 98.7 F 98.8 F Pulse Rate 80 65 92 Respiratory Rate 22 H 18 18 Blood Pressure 109/75 113/74 126/51 L Pulse Oximetry 100 96 98 Oxygen
--- NOTE | 2022-10-24 09:10 | PM.PNPUL ---
Progress Note: A&P Assessment and Plan (1) Lung mass: Code(s): R91.8 - Other nonspecific abnormal finding of lung field Status: Acute Assessment and Plan: ?This 67-year-old man presented with chronic shortness of breath, right chest pain, marked leukocytosis, evidence of right lower lobe paraspinal mass extending into the right hilum, and? positive blood cultures for Gram-positive cocci in chains drawn at another facility. The patient currently has no symptoms such as fever or hemoptysis and does not look septic.? It appears as though he has got a large mass in the right lower lobe which is highly suspicious for malignancy.? On the chest CT done at [facility] there was evidence of narrowing of adjacent bronchi and also narrowing of the right pulmonary artery branches suggestive of malignancy.? He has been on antibiotics for possible community-acquired pneumonia.? In view of positive blood cultures at the other facility, we added vancomycin IV. blood cultures drawn here negative so far. Sputum culture also negative. Patient underwent bronchoscopy Yesterday. Bronchoscopy showed large tumor occluding bronchus intermedius right after take off of the right upper lobe bronchus. tumor extended into the orifice of the right upper lobe bronchus as well. Could not advance scope in either the right upper or right lower lobe due to narrowing of bronchi. multiple biopsies were obtained from the intraluminal mass. Plan: Continue with current antibiotic regimen for possible lower respiratory tract infection/obstructive pneumonia. Need to get final blood culture report from other facility. On today's post procedure x-ray there was evidence of increasing right pleural effusion for which the patient will have thoracentesis to exclude empyema versus metastatic disease. Case was discussed with Dr. Davis. (2) Pleural effusion: Code(s): J90 - Pleural effusion, not elsewhere classified Status: Acute (3) Community acquired pneumonia: Code(s): J18.9 - Pneumonia, unspecified organism Status: Acute Subjective Date/time seen: 10/24/22 09:10 Interval history: Patient has no new respiratory symptoms today. He remains on room air, afebrile post bronchoscopy and bronchial biopsy. Scheduled to undergo right thoracentesis later today. Review of Systems Review of Systems: All systems reviewed & are unremarkable except as noted in HPI and below Exam Narrative: GENERAL APPEARANCE: Well developed, well nourished, alert and cooperative, looking chronically ill and in no respiratory distress while breathing ambient air. SKIN: Inspection of the skin reveals no rashes, ulcerations or petechiae. HEENT: Sclerae anicteric and conjunctivae pink and moist. Extraocular movements were intact and pupils were equal, round. poor dental hygiene NECK: Supple. There was no thyroid enlargement, and no tenderness, or masses were felt. CHEST: Normal AP diameter and normal contour without any kyphoscoliosis. LUNGS: Auscultation of the lungs revealed decreased breath sounds right base posteriorly CARDIAC: There was a regular rate and rhythm without any murmurs, gallops, rubs. ABDOMEN: Soft and nontender with normal bowel sounds. There was no organomegaly. LYMPH NODES: No lymphadenopathy was appreciated in the neck. EXTREMITIES: No cyanosis, clubbing or edema. NEUROLOGIC: Alert and oriented x 3. Normal affect. Objective Data Vital Signs Vital Signs: Vital Signs - 24 hr 10/23/22 12:35 10/23/22 14:17 10/23/22 14:27 Temperature 36.5 C 36.6 C Pulse Rate 56 L 91 86 Respiratory Rate 20 23 H 20 Blood Pressure 125/81 100/64 108/65 Pulse Oximetry 98 100 100 Oxygen Delivery Room Air Room Air Room Air 10/23/22 14:37 10/23/22 14:47 10/23/22 14:57 Temperature Pulse Rate 85 76 79 Respiratory Rate 25 H 20 24 H Blood Pressure 108/70 113/75 111/74 Pulse Oximetry 100 100 99 Oxygen Delivery Room Air Room Air Room Air
[2022-10-24 11:45] VITALS: BP 105/68; PULSE 93; RESP 16; TEMP 36.4; O2SAT 97
[2022-10-24] MEDS: MULTIVITAMINS THERAPEUTIC TAB (*BKC) 1 TABLET PO (12:20)
[2022-10-24] MEDS: BENZONATATE 100 MG CAPSULE 200 MG PO ×2 (12:20→17:05)
[2022-10-24] MEDS: CYANOCOBALAMIN INJ 1,000 MCG/ML VIAL 1000 MCG IM (12:21)
[2022-10-24 13:05] LABS: Vancomycin Trough < 5.0 ug/mL (10.0-20.0)
[2022-10-24 13:21] VITALS: BP 117/82; PULSE 75; RESP 16; TEMP 36.9; O2SAT 98
[2022-10-24] MEDS: FERROUS SULFATE 324 MG TABLET PO (17:06)
--- NOTE | 2022-10-24 17:45 | PM.DS ---
DS: Admitting Diagnosis Discharge Date 10/24/22 Admitting Diagnosis Shortness of breath DS: Discharge Diagnosis Discharge Diagnosis (1) Community acquired pneumonia: Code(s): J18.9 - Pneumonia, unspecified organism Status: Acute (2) Lung mass: Code(s): R91.8 - Other nonspecific abnormal finding of lung field Status: Acute (3) Anemia: Code(s): D64.9 - Anemia, unspecified Status: Acute (4) Nicotine dependence with current use: Code(s): F17.200 - Nicotine dependence, unspecified, uncomplicated Status: Acute (5) Cocaine abuse: Code(s): F14.10 - Cocaine abuse, uncomplicated Status: Acute DS: Summary Hospital Course Reason for hospitalization: 67yo male with hx of cocaine use here for cough and found to have lung mass and PNA. Please see H&P for details Hospital Course: Patient presents with a cough and SOB at an outside hospital.? Chest CT at the outside hospital showed a 10 cm paraspinal consolidation/mass extending into the perihilar region suspicious for malignancy.? He also has a right pleural effusion.?He does have poor dentition.? He was on Rocephin, azithromycin vancomycin but rocephin changed to Unasyn.? Blood cultures here are no growth to date.? Sputum pending. BCx at the OSH showing grew Strept Pneumoniae that was pansensitive. Pulmonary was consulted. He has a 30 pack-year smoking history and has cut down to 1 cigarette daily. Bronchoscopy 10/23 showing a large intraluminal mass at orifice right bronchus intermedius after takeoff of the right upper lobe bronchus. The mass occludes almost the entirety of the lumen and extends into the bronchus of the right upper lobe. Multiple biopsies taken. Oncology was consulted as well. Given his complain of headache, we requested a copy of the neuroimaging done at [place] but no results provided. We proceed with CT head here but this did not show any acute findings. Given the concern for infection and now cancer, we attempted a right thoracentesis but ultrasound showed more likely pleural thickening. Patient with microcytic anemia.? He is currently on iron.? Stool guaiac was negative. Iron studies mostly consistent with anemia of chronic disease. B12 low end of normal adn B12 given. Patient was educated about the benefits of smoking cessation and was educated about the benefits of abstaining from drug use.? HIV and hepatitis testing was negative. He has been up walking in the halls. He overall did well and was able to be discharged home on 10/24/22 Status at Discharge Cognitive/behavioral status at discharge: stable Time Spent with Patient Time attestation: Total time spent providing and/or coordinating discharge services: 37 minutes Time spent: Greater than 30 minutes Exam Narrative: AF 97.9 122/80 67 18 100% ra Gen - NARD HEENT - poor dention with broken teeth. no oral lesions or thrush Chest -Decreased breath sounds right mid and lower lung field. mild coarse BS diffusely. CV - RRR S1/S2 Abd - Soft, NT/ND, Positive BS Ext - No pedal edema Psych - Nml mood and affect Skin - Warm and dry. small sebaceous cysts mid back without evidence of infection. DS: Data Data Completed and Pending Pending studies at discharge: Pending at discharge 10/23/22 14:31 Surgical [PTH] Routine 10/24/22 08:00 Cytology [PTH] Routine Labs on day of discharge: Labs from last 24 hours 10/24/22 10/24/22 10/24/22 12:04 12:04 05:46 WBC RBC Hgb Hct MCV MCH MCHC RDW Plt Count MPV Immature Gran % (Auto) Neut % (Auto) Lymph % (Auto) [place] % (Auto) Eos % (Auto) Baso % (Auto) Lymph # (Auto) [place] # (Auto) Eos # (Auto) Baso # (Auto) Abs Immat Gran (auto) Absolute Neuts (auto) Absolute Nucleated RBC Nucleated RBC % Sodium 139 Potassium 3.6 Chloride 104 Carbon Dioxide 27 Anion Gap 8 BUN 11 Creatinine
[2022-10-26 02:58] LABS: Pneumococcal Antigen Urine Not Detected (Not Detected)
[2022-10-28 12:36] LABS: Methylmalonic Acid 218 nmol/L (87-318)
--- NOTE | 2022-10-31 09:06 | PC.NURSE ---
MMA is 218, Urine pneumococcal Ag is negative, REsp cx is negaitve. PAthology shows invasive carcinoma. Results faxed to Dr. Guzman and Dr. Norton. Dr. Davis aware of findings.
--- NOTE | 2022-10-31 10:03 | PC.NURSE ---
Faxed pathology report to Dr. Guzman and Dr. Norton. Dr. Davis aware of findings.
--- NOTE | 2022-11-19 14:13 | PC.NURSE ---
fungal cx is negative. Dr. Susan nunes.
== END 2022-10-24 18:24 | disposition home or self-care (01) | DRG 180 ==
PROVIDERS: Internal Medicine Pulmonary Disease; Admitting Provider Student in an Organized Health Care Education/Training Program; Visit Provider Internal Medicine
PROC: 0BJ08ZZ Inspection of Tracheobronchial Tree, Via Natural or Artificial Opening Endoscopic (ICD-10-PCS; CPT 31622; principal; 2022-10-23 13:30)
DX: C34.81 Malignant neoplasm of overlapping sites of right bronchus and lung (principal); J18.9 Pneumonia, unspecified organism; R78.81 Bacteremia; D63.8 Anemia in other chronic diseases classified elsewhere; F14.90 Cocaine use, unspecified, uncomplicated; F17.210 Nicotine dependence, cigarettes, uncomplicated; Z11.4 Encounter for screening for human immunodeficiency virus [HIV]
CPT/HCPCS: 32555; 36415; 70470; 71045; 71046; 80053; 80069; 80074; 80202; 82274; 82565; 82607; 82728; 82746; 83540; 83550; 83615; 83735; 83921; 85025; 85610; 86703; 87015; 87040; 87070; 87077; 87102; 87116; 87205; 87206; 87899; 88305; 88342; 94667; 94669; A9270; G0432; J0295; J0330; J0456; J0696; J1650; J2001; J2704; J3370; J3420; J7030; J7040; J7120; Q9967

== ENCOUNTER 2022-11-15 09:08 | Outpatient (CLI) | payer MEDICARE, MEDICAID, SELFPAY ==
--- NOTE | ~2022-11-15 | PE_ITS ---
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 10.160 mCi of 18-fluorodeoxyglucose (18-FDG) was adminis tered i.v. Low dose computed tomography (CT) images were acquired from the base of the brain to the p roximal thighs for attenuation correction and anatomic localization. Positron emission tomography (PE T) images were acquired in the same distribution beginning 57 minutes after injection. The dose-lengt h product (DLP) was 349.81 mGy-cm. COMPARISON: CT, 10/20/2022 FINDINGS: Head/neck: No abnormal FDG uptake is identified. There is physiologic uptake in the vocal cords an or al cavity. Chest: Although difficult to measure with without intravenous contrast, there is an approximately 7.5 x 5.1 cm right hilar/perihilar mass which infiltrates into the subcarinal region of the mediastinum. There is marked associated FDG uptake with SUV max of 22.8. The mass obstructs the right lower lobe bronchi resulting in right lower lobe collapse. There are two FDG avid nodules of the right upper lob e measuring 4 mm. There is a 9 mm FDG avid nodule of the right middle lobe. There is a 1.7 x 1.0 cm r ight upper paratracheal lymph node with abnormal FDG uptake. A pathologically enlarged right lower pa ratracheal lymph node is contiguous with the mass. There is a trace right pleural effusion. No pneumo thorax is identified. The heart size is normal. There is calcified coronary artery atherosclerosis. Abdomen/pelvis/proximal thighs: Physiologic FDG activity is present in the bowel and urinary tract. N o abnormal FDG uptake is identified. The liver, spleen, pancreas, gallbladder, and adrenal glands are normal. The kidneys are unremarkable. No pathologically enlarged abdominal or pelvic lymph nodes are identified. There is no free intraperitoneal gas or evidence of bowel obstruction. There are surgica l changes of the right acetabulum. Calcified atherosclerosis is noted. There is circumferential wall thickening of the urinary bladder which could reflect cystitis versus chronic outlet obstruction. Musculoskeletal: No abnormal FDG uptake is identified. There is pfxa-po-dhnfwyem spondylosis of the s pine. IMPRESSION: 1. Right hilar/perihilar mass which infiltrates into the subcarinal and paratracheal regions of the m ediastinum. 2. Nodules of the right upper and middle lobes and pathologically enlarged mediastinal lymphadenopath y, consistent with metastatic disease. Reviewed, dictated and finalized at location A. OR MANUFACTURING ENGINEER IMPRESSION: 1. Right hilar/perihilar mass which infiltrates into the subcarinal and paratra cheal regions of the mediastinum. 2. Nodules of the right upper and middle lobes and pathologically enlarged medi astinal lymphadenopathy, consistent with metastatic disease.
[2022-11-15 09:35] LABS: Glucose Point of Care 98 mg/dl (65-105)
== END 2022-11-15 09:09 | disposition home or self-care (01) ==
PROVIDERS: Visit Provider Internal Medicine Hematology & Oncology
DX: C34.91 Malignant neoplasm of unspecified part of right bronchus or lung (principal); R91.8 Other nonspecific abnormal finding of lung field
CPT/HCPCS: 78815; A9552

== ENCOUNTER 2022-11-22 11:26 | Outpatient (CLI) | payer MEDICARE, MEDICAID, SELFPAY ==
[2022-11-22 11:41] LABS: Hemoglobin 10.8 g/dL (14.0-18.0); Mean Corpuscular Hemoglobin 22.8 pg (26-34); Mean Corpuscular Volume 75.9 fl (80-100); Mean Platelet Volume 8.8 fl (7.4-10.4); Platelet Count Result 433 k/mm3 (150-375); Red Blood Count 4.74 M/mm3 (4.6-6.20); Red Cell Distribution Width 16.8 % (11.5-14.5); White Blood Count 8.1 K/mm3 (4.5-10.0)
[2022-11-22 15:22] LABS: Iron 16 ug/dL (49-181)
[2022-11-22 15:33] LABS: Percent Iron Saturation 5 % (20-50)
== END 2022-11-22 11:27 | disposition home or self-care (01) ==
LOC: ANHLAB 11:28
PROVIDERS: Visit Provider Internal Medicine Hematology & Oncology
DX: D64.9 Anemia, unspecified (principal)
CPT/HCPCS: 36415; 82607; 82728; 83540; 83550; 85027

== ENCOUNTER 2022-12-05 09:48 | Inpatient (IN) | payer MEDICARE, MEDICAID, SELFPAY ==
[2022-12-05] VITALS (31 sets, daily range): BP systolic 81–143; BP diastolic 56–116; PULSE 65–188; RESP 17–36; TEMP 36.1–37.1; O2SAT 96–100; BMI 17.1
--- NOTE | ~2022-12-05 | CT_ITS ---
EXAMINATION: CTA chest PE protocol DATE: 12/05/2022 12:18 INDICATION: Shortness of breath. TECHNIQUE: Computed tomography angiography (CTA) of the chest was performed with 100 mL Omnipaque-350 intravenous contrast timed to evaluate the pulmonary arteries. Coronal maximum intensity projection 3D-reconstructions were created by the technologist. Automated exposure control and iterative reconst ruction technique were employed. The dose-length product was 156.47 mGy-cm. COMPARISON: Chest CT 10/20/2022, PET/CT 11/15/2022 FINDINGS: There is a 10.6 x 7.9 cm right hilar mass which compresses the proximal right-sided pulmona ry arteries and atria of the heart. There are scattered nodules in the lungs measuring up to 11 mm in left upper lobe. There are tree-in-bud opacities and centrilobular nodules in right upper lobe, cons istent with pneumonia. There is occlusion of the right main stem bronchus. A calcified right lung nod ule and calcified right hilar lymph nodes are consistent with old granulomatous disease. There is a s mall right pleural effusion. The heart is not enlarged. There is a small pericardial effusion. There is mediastinal lymphadenopathy. There is no pulmonary embolus. There is a 12 mm mass in left adrenal gland measuring soft tissue attenuation without increased activity on the prior PET, likely an adenom a. There is mild thoracic spondylosis. IMPRESSION: 1. No pulmonary embolus. 2. 10.6 x 7.9 cm right hilar mass, consistent with primary bronchogenic carcinoma. 3. Pulmonary nodules and enlarged mediastinal lymph nodes, consistent metastatic disease. 4. Postobstructive pneumonia in right upper lobe. 5. Small right pleural effusion. 6. Small malignant pericardial effusion. Reviewed, dictated and finalized at location A. IC HEALTH ENGINEER IMPRESSION: 1. No pulmonary embolus. 2. 10.6 x 7.9 cm right hilar mass, consistent with primary bronchogenic carcino ma. 3. Pulmonary nodules and enlarged mediastinal lymph nodes, consistent metastati c disease. 4. Postobstructive pneumonia in right upper lobe. 5. Small right pleural effusion. 6. Small malignant pericardial effusion.
--- NOTE | ~2022-12-05 | CT_ITS ---
EXAMINATION: CT brain wo con DATE: 12/05/2022 22:18 INDICATION: Headache, lung cancer . TECHNIQUE: Computed tomography (CT) of the head was performed without intravenous contrast. The mA wa s adjusted according to patient size. Iterative reconstruction technique was employed. The dose-lengt h product was 605.33 mGy-cm. COMPARISON: None. FINDINGS: No acute intracranial hemorrhage or extra-axial fluid collection. No hydrocephalus, mass, or herniation. No acute ischemic infarct. Unremarkable dural venous sinus attenuation. No acute osseous abnormality. The aerated spaces are clear. IMPRESSION: No acute intracranial process. Reviewed, dictated and finalized at location K. MOSTATIC CONTROLS SUPERVISOR
--- NOTE | ~2022-12-05 | XR_ITS ---
CORRECTED REPORT Report moved from [id number] to [id number]. This report was recreated on 12/13/2022. Original report was WORKER. 12/13/2022 sef Portable chest x-ray Comparison: 12/05/2022 Clinical History: Mediport placement Findings: Right-sided Mediport is present, in satisfactory position. Moderate right pleural effusion present with mild haziness in the aerated right lung. Left lung remains clear. Cardiomediastinal silhouette is stable. Small calcified right hilar lymph nodes present. Bones and soft tissues are unremarkable. Impression: Right-sided Mediport in satisfactory position. No pneumothorax. Moderate right pleural effusion. Left lung remains clear. Reviewed, dictated and finalized at location M. WORKER [facility]
--- NOTE | ~2022-12-05 | XR_ITS ---
XR chest 1V portable DATE: 12/05/2022 10:18 INDICATION: Shortness of breath TECHNIQUE: Portable upright AP chest on 12/05/2022 at 1014 hours COMPARISON: 10/23/2022 portable AP chest 11/15/2022 PET/CT scan FINDINGS: There is increased right lung volume loss and rightward shift of heart and mediastinum sinc e 10/23/2022 in addition to right pleural effusion. Heart size appears within normal range. Is aortic calcification and unfolding. The left lung appears clear. No left pleural effusion. No pneumothorax. Multiple healed right rib fracture deformities. IMPRESSION: Increased right lung atelectasis and rightward shift of heart and mediastinum since 10/23, due to right lung mass. Mild to moderate right pleural effusion Reviewed, dictated and finalized at location B. LEVEL PRACTITIONER IMPRESSION: Increased right lung atelectasis and rightward shift of heart and m ediastinum since 10/23/2022, due to right lung mass. Mild to moderate right ple ural effusion
--- NOTE | ~2022-12-05 | XR_ITS ---
CORRECTED REPORT Report moved from [id number] to [id number]. This report was recreated on 12/13/2022. Original report was RSION METAL CLEANER. 12/13/2022 ricky EXAMINATION: XR fl guide central line place DATE: 12/07/2022 08:27 INDICATION: Port placement. TECHNIQUE: A single intraoperative fluoroscopic view of the chest was obtained. I was not present. Fluoroscopy exposure time was 38 seconds. COMPARISON: Chest single view 12/07/2022 FINDINGS: There is a right internal jugular catheter with tip in the superior vena cava. There is a right pleural effusion. IMPRESSION: 1. Catheter tip in the superior vena cava. Reviewed, dictated and finalized at location A. RSION METAL CLEANER [facility]
--- NOTE | 2022-12-05 09:49 | ECG_ITS ---
Measurements Intervals [place] Rate: 177 P: [place]: 0 QRS: -27 QRSD: 92 T: 92 QT: 253 QTc: 435 Interpretive Statements ATRIAL FIBRILLATION WITH RAPID VENTRICULAR RESPONSE NONSPECIFIC ST & T-WAVE ABNORMALITY- HIGH LATERAL LEADS BASELINE ARTIFACT- I, V1, V6 ABNORMAL ECG NO PREVIOUS ECG AVAILABLE FOR COMPARISON Electronically Signed On 12-05-2022 10:16:16 ASSEMBLER [employer]ASS[employer] by Ezequiel Cali D.O.
[2022-12-05] MEDS: dilTIAZem HCl INJ 25 MG/5 ML VIAL 10 MG IV PUSH (10:17)
[2022-12-05] MEDS: dilTIAZem 100 MG/100 ML 100 MG/100 ML BAG IV CONT (10:54)
[2022-12-05 11:03] LABS: Basophils Absolute Auto 0.1 K/mm3 (0.0-0.1); Basophils Percent Auto 0.9 % (0.2-1.2); Eosinophils Percent Auto 0.3 % (0-4.4); Hematocrit 36.5 % (42.0-52.0); Hemoglobin 10.9 g/dL (14.0-18.0); Immature Granulocyte Absolute 0.08 K/mm3 (0.00-0.031); Immature Granulocyte Percent A 0.7 % (0-0.5); Lymphocytes Absolute Auto 1.49 K/mm3 (0.9-3.2); Lymphocytes Percent Auto 13.6 % (18.3-44.2); Mean Corpuscular HGB Conc 29.9 g/dl (32-36); Mean Corpuscular Hemoglobin 22.3 pg (26-34); Mean Corpuscular Volume 74.8 fl (80-100); Mean Platelet Volume 9.3 fl (7.4-10.4); Monocytes Absolute Auto 0.9 K/mm3 (0.1-0.6); Monocytes Percent Auto 8.4 % (2.6-8.5); Neutrophils Absolute Auto 8.4 K/mm3 (1.3-6.7); Neutrophils Percent Auto 76.1 % (45.5-73.1); Platelet Count Result 524 k/mm3 (150-375); Red Blood Count 4.88 M/mm3 (4.6-6.20); Red Cell Distribution Width 17.2 % (11.5-14.5)
[2022-12-05 11:04] LABS: Alanine Aminotransferase 25 U/L (6-50); Albumin Level 3.7 g/dL (3.5-5.1); Alkaline Phosphatase 110 U/L (38-126); Anion Gap 5 mmol/L (8-16); Aspartate Amino Transferase 27 U/L (17-59); Bilirubin,Total 0.7 mg/dL (0.2-1.3); Blood Urea Nitrogen 17 mg/dL (9-20); Calcium 12.2 mg/dL (8.4-10.2); Carbon Dioxide 31 mmol/L (22-30); Chloride 95 mmol/L (98-107); Estimated CRCL calculation 47 ml/min; Estimated Glomerular Filt Rate > 60; Glucose 124 mg/dL (65-110); Potassium 4.6 mmol/L (3.4-5.0); Sodium 131 mmol/L (137-145)
[2022-12-05] MEDS: SODIUM CHLORIDE 0.9% IV 1,000 ML 999 ML IV CONT ×2 (11:11→14:00)
[2022-12-05 11:27] LABS: INR 1.3; Prothrombin Time 15.4 Seconds (11.1-14.7)
[2022-12-05 11:28] LABS: Partial Thromboplastin Time 28.5 SECONDS (22.3-36.8)
[2022-12-05 11:29] LABS: Influenza A QL RT-PCR Negative (Negative); Influenza B QL RT-PCR Negative (Negative); SARS-CoV-2 RNA PCR Negative
[2022-12-05 11:35] LABS: NT Pro B Type Natriuretic Pept 400 pg/mL (5-100); Troponin I < 0.012 ng/mL (0.000-0.034)
[2022-12-05 11:45] LABS: Anisocytosis 1+ (NORMAL); Hypochromasia 1+ (NORMAL); Platelet Estimate Increased (Adequate)
[2022-12-05 11:51] LABS: Schistocytes None Seen (NORMAL)
[2022-12-05] MEDS: AMIODARONE 150 MG/D5W 100 ML 150 MG/100 ML BAG 600 MG IV CONT (11:59)
[2022-12-05] MEDS: AMIODARONE 360 MG/D5W 200 ML 360 MG/200 ML BAG 33.33 MG IV CONT (12:31)
--- NOTE | 2022-12-05 12:48 | ED.SOB ---
HPI - SOB/Dyspnea General Chief Complaint: Shortness of Breath/Dyspnea Stated Complaint: difficulty breathing Time Seen by Provider: 12/05/22 10:07 History of Present Illness HPI Narrative: Patient is a 67-year-old male with history of lung carcinoma who presents ER with shortness of breath. Reports chronic shortness of breath for several months but significantly worsening over the last 2 days. No chest pain or pressure. Found to have a significantly elevated heart rate. He is currently in A. fib with RVR but has no history of arrhythmia. He denies any chest pain. He was supposed to go see his radiation oncologist today but did not make it due to his symptoms. No productive cough. Related Data Allergies Allergy/AdvReac Type Severity Reaction Status Date / Time No Known Allergies Allergy Verified 12/05/22 10:13 Review of Systems Review of Systems: All systems reviewed & are unremarkable except as noted in HPI and below Constitutional: Constitutional: Denies chills, Reports fatigue and Denies fever(s) ENT: Denies nasal congestion and Denies sore throat Cardiovascular: Cardiovascular: Denies chest pain, Reports rapid heart rate and Denies radiating jaw, neck or arm pain Respiratory: Respiratory: Denies cough, Reports dyspnea and Denies wheezing Gastrointestinal: Gastrointestinal: Denies abdominal pain, Denies diarrhea, Denies nausea and Denies vomiting PMF Past Medical History Medical History (Updated 12/05/22 @ 14:02 by Samir Martinez MD) Cocaine abuse Lung cancer Nicotine dependence with current use Family History Family History Mother COPD (chronic obstructive pulmonary disease) Sibling Lung cancer Father Brain cancer Social History Social History (Updated 10/21/22 @ 02:49 by Shoshana Cartagena DO) Social History: he lives alone,does not drive, living on social security. Only family is sister nearby helps get groceries. next of kin is sister. Years smoked: 36 Smoking status: Current every day smoker Tobacco type: cigarettes Additional smoking assessment comments: STATES WAS 1-2PK/DAY-NOW DOWN TO 1 CIGARETTE DAY SINCE JUNE 2022 Alcohol intake: never Substance use: former Substance use type: crack/cocaine Last use: 05/2022 Lack of Transportation: No Lack of Food: Never True Current Housing: I Have Housing Concerned About Future Housing: No Difficulty Paying Gas/Electric Bills: No Difficulty Paying for Meds: No Currently Unemployed: No Education: High School Diploma/GED Difficulty w/ Childcare or Family Care: No Additional living arrangements comments: STATES LIVES ALONE - BUT GRANDSON & FAMILY MOVED IN TEMPORALLY UNTIL THEY CAN GET ON THEIR FEET Additional occupation/education comments: on social security Spiritual care concerns: No Exam Narrative: GENERAL: Well-appearing, well-nourished, and in no acute distress. HEAD: Normocephalic, atraumatic. EYES: PERRL and EOMI. ENT: Mucous membranes moist. CHEST: Diminished lung sounds throughout on the right side and normal breath on the left side. No respiratory distress. HEART: Irregular regular rate and rhythm that is tachycardic.. Normal peripheral pulses. ABDOMEN: Soft, nontender, nondistended. EXTREMITIES: Normal range of motion. No edema. SKIN: Warm, dry, no rash. NEURO: Alert and oriented x3. PSYCH: Normal mood and affect. Course Course Emergency Course: Patient did not tolerate diltiazem and his blood pressure dropped. He was switched to amiodarone and converted from atrial fibrillation to a sinus rhythm. Patient is in no distress. His blood pressure does continue to run low which may be normal for him. He has a MAP of 75 and a systolic pressure between the 80s and 90s. Patient is in no distress and speaking full sentences. Discussed his situation and diagnoses which she verbalized understanding of. I consulted Dr. Rubio with
[2022-12-05 13:24] LABS: Base Excess ABG 0.4 mEq/l (+/-2.0); Fractional Inspired Oxygen 21 %; HCO3 ABG 24.5 mEq/l (22.0-26.0); Methemoglobin ABG 0.2 %THb (0-1.5); Oxygen Content ABG 14.6 %vol (16.0-22.0); Oxygen Saturation ABG 96.7 % (95.0-100.0); Oxyhemoglobin 94.5 % THb (90.0-100.0); PCO2 ABG 37.4 mmHg (35.0-45.0); PO2 ABG 84.9 mmHg (80.0-100.0); PO2 FiO2 Ratio Arterial Blood 4.04 %; Reduced Hemoglobin 4.3 %THb (0-5.0); Total Hemoglobin 10.9 g/dL (12.0-18.0); pH ABG 7.434 (7.350-7.450)
[2022-12-05 13:25] LABS: Device ROOM AIR; Modified Allen's Test Pass; Site Drawn LEFT RADIAL
--- NOTE | 2022-12-05 14:00 | PM.IMHP ---
H&P: HPI History of Present Illness Date/Time: 12/05/22 14:00 Chief Complaint: Shortness of breath. Narrative: This is a 67-year-old male smoker who presented to the emergency department for evaluation of shortness of breath. He is known to the hospitalist service from an admission in October 2022 at which time he was admitted with a 10 cm perihilar mass and post-obstructive pneumonia after presenting with shortness of breath. Right lung biopsy showed invasive squamous cell carcinoma. Today he was supposed to have an appointment to discuss treatment however he was directed to the emergency department instead for evaluation of symptoms that he has been having the last couple of nights to include a pounding headache, nausea, palpitations, racing heart, and cough occasionally productive. He has not had fever, chills, or sweats. Appetite has been poor, he just is not hungry. He estimates he has lost at least 20 pounds in the last several months. He denies vertigo, focal weakness, and paresthesias. No exertional chest pain or pleuritic pain. EKG on arrival to the ED showed atrial fibrillation with rapid ventricular response and nonspecific T-wave abnormalities in the high lateral leads. He was initially started on a diltiazem drip though his blood pressures dropped and he was instead transition to an amiodarone drip and he has since converted to a sinus rhythm. He has no known history of atrial fibrillation and only started having symptoms within the last several days. He has been afebrile since arrival. CTA of the chest showed no evidence of pulmonary embolism but did show postobstructive pneumonia right upper lobe, small right pleural effusion, and small malignant pericardial effusion as well as pulmonary nodules and enlarged mediastinal lymph nodes consistent with metastatic disease. He is being admitted in this setting for further treatment. Review of Systems Review of Systems: Twelve systems were reviewed and are negative except for as per HPI. [facility] Past Medical History Medical History (Updated 12/05/22 @ 21:50 by Niki Conti PA-C) Cocaine abuse Clean since fall 2021. Nicotine dependence with current use Squamous cell carcinoma of right lung Surgical History Surgical History (Updated 12/05/22 @ 21:40 by Niki Conti PA-C) History of open reduction and internal fixation (ORIF) procedure Right hip pinning. Family History Family History Mother COPD (chronic obstructive pulmonary disease) Sibling Lung cancer Father Brain cancer Social History Social History (Updated 12/05/22 @ 21:42 by Niki Conti PA-C) Social History: Surrogate decision maker: oc Bolanos. Code status: Full code. Years smoked: 45 Smoking status: Current every day smoker Tobacco type: cigarettes Additional smoking assessment comments: Down to 1 cigarette a day. Alcohol intake: former Substance use: former Substance use type: crack/cocaine Last use: 05/2022 Lack of Transportation: No Lack of Food: Never True Current Housing: I Have Housing Concerned About Future Housing: No Difficulty Paying Gas/Electric Bills: No Difficulty Paying for Meds: No Currently Unemployed: No Education: Grade School Difficulty w/ Childcare or Family Care: No Additional living arrangements comments: Patient lives in his own apartment. Grandson and his family are currently staying with him until they can get on her feet. Additional occupation/education comments: Next retired, on social security. Spiritual care concerns: No Meds Home Medications and Allergies Home Medications Medication Instructions Recorded Confirmed Type cyanocobalamin (vitamin B-12) 1,000 mcg PO DAILY #30 caps 10/24/22 12/05/22 Rx 1,000 mcg capsule ferrous sulfate 325 mg (65 mg 325 mg PO BIDWM #60 tabs 10/24/22 12/05/22 Rx iron) tablet Allergies A
--- NOTE | 2022-12-05 15:32 | ECG_ITS ---
Measurements Intervals [place] Rate: 73 P: 50 NV: 142 QRS: -26 QRSD: 88 T: 51 QT: 357 QTc: 394 Interpretive Statements SINUS RHYTHM POSSIBLE LEFT ATRIAL ENLARGEMENT BASELINE ARTIFACT- I, III, AVR, AVL BORDERLINE ECG COMPARED TO ECG 12/05/2022 09:55:53 SINUS RHYTHM NOW PRESENT Electronically Signed On 12-05-2022 15:37:08 [employer]CHER [employer] ROUND by Ezequiel aCli D.O.
[2022-12-05] MEDS: AMIODARONE 360 MG/D5W 200 ML 360 MG/200 ML BAG 16.67 MG IV CONT (18:57)
--- NOTE | 2022-12-05 19:29 | PC.NURSE ---
Attempted to call report. RN unavailable at this time.
--- NOTE | 2022-12-05 20:02 | PC.NURSE ---
Amiodarone drip stopped at this time per verbal order from hospitalist
--- NOTE | 2022-12-05 20:19 | ADMGEN ---
This patient, Alonso Camara, was admitted to IMU Room 211-01. Patient/family oriented to hospital policies and general routines including ID bracelet, bed and alarms, visiting hours, pain management, procedures, bathroom and other care routines, personal items, smoking policy, room service/diet, and visiting hours. Information on how to activate the Rapid Response Team has been discussed. Patient/Family are encouraged to report perceived risks to care and to ask questions if they do not understand what they are told or what they should do.
[2022-12-05] MEDS: MORPHINE SULFATE (*CRX) 4 MG/ML INJ IV PUSH (21:39)
[2022-12-05] MEDS: SODIUM CHLORIDE 0.9% IV 1,000 ML 125 ML IV CONT (22:29)
[2022-12-05 23:17] LABS: Anion Gap 6 mmol/L (8-16); Blood Urea Nitrogen 15 mg/dL (9-20); Calcium 10.5 mg/dL (8.4-10.2); Carbon Dioxide 27 mmol/L (22-30); Chloride 101 mmol/L (98-107); Estimated CRCL calculation 50 ml/min; Estimated Glomerular Filt Rate > 60; Glucose 107 mg/dL (65-110); Potassium 3.7 mmol/L (3.4-5.0); Sodium 134 mmol/L (137-145)
[2022-12-05 23:26] LABS: Phosphorus 3.3 mg/dL (2.5-4.5)
[2022-12-05 23:28] LABS: Parathyroid Intact 5.4 pg/mL (7.5-53.5)
[2022-12-06] VITALS (19 sets, daily range): BP systolic 91–111; BP diastolic 57–79; PULSE 64–97; RESP 18–24; TEMP 35.8–36.6; O2SAT 100; BMI 17.1
[2022-12-06 05:11] LABS: Hematocrit 28.5 % (42.0-52.0); Hemoglobin 8.3 g/dL (14.0-18.0); Mean Corpuscular HGB Conc 29.1 g/dl (32-36); Mean Corpuscular Hemoglobin 22.6 pg (26-34); Mean Corpuscular Volume 77.7 fl (80-100); Mean Platelet Volume 9.4 fl (7.4-10.4); Platelet Count Result 389 k/mm3 (150-375); Red Blood Count 3.67 M/mm3 (4.6-6.20); Red Cell Distribution Width 17.1 % (11.5-14.5); White Blood Count 7.5 K/mm3 (4.5-10.0)
[2022-12-06 05:30] LABS: Creatinine Urine 37.8 mg/dL
[2022-12-06 05:32] LABS: Sodium Urine Random 37 meq/L
[2022-12-06 05:34] LABS: Anion Gap 3 mmol/L (8-16); Blood Urea Nitrogen 14 mg/dL (9-20); Calcium 10.2 mg/dL (8.4-10.2); Carbon Dioxide 29 mmol/L (22-30); Chloride 104 mmol/L (98-107); Estimated CRCL calculation 46 ml/min; Estimated Glomerular Filt Rate > 60; Glucose 94 mg/dL (65-110); Magnesium 1.8 mg/dL (1.6-2.3); Sodium 136 mmol/L (137-145)
--- NOTE | 2022-12-06 09:43 | HP_ITS ---
This report was moved to the correct visit on 12/07/2022. Original report was signed by Sandro Quan MD on 12/07/22 0717. Anes - Initial Pre Proc Eval Procedure: Operation Date: 12/07/22 07:30 Proposed Procedures p Insertion Suyapa Cath - Harley Robles MD Date/Time: 12/06/22 09:38 Surgeon: Harley Robles MD Pre Op Diagnosis: malignant neoplasm right lung Patient Data Age: 67 Gender: M Height: 1.7 m Weight: 53.18 kg Allergies Allergy/AdvReac Type Severity Reaction Status Date / Time No Known Allergies Allergy Verified 12/05/22 10:13 Home Medications Medication Instructions Recorded Confirmed Type cyanocobalamin (vitamin B-12) 1,000 mcg PO DAILY #30 caps 10/24/22 12/05/22 Rx 1,000 mcg capsule ferrous sulfate 325 mg (65 mg 325 mg PO BIDWM #60 tabs 10/24/22 12/05/22 Rx iron) tablet Patient hx anesthesia problems: none Family hx anesthesia problems: none Results Review: All pre-operative results and documents have been reviewed as part of the pre- operative evaluation. [facility] Past Medical History Medical History Cocaine abuse Clean since fall 2021. Nicotine dependence with current use Squamous cell carcinoma of right lung Surgical History Surgical History History of open reduction and internal fixation (ORIF) procedure Right hip pinning. Family History Family History Mother COPD (chronic obstructive pulmonary disease) Sibling Lung cancer Father Brain cancer Social History Social History Social History: Surrogate decision maker: Gilberto Jose, grandson. Code status: Full code. Years smoked: 45 Smoking status: Current every day smoker Tobacco type: cigarettes Additional smoking assessment comments: Down to 1 cigarette a day. Alcohol intake: former Substance use: former Substance use type: crack/cocaine Last use: 05/2022 Lack of Transportation: No Lack of Food: Never True Current Housing: I Have Housing Concerned About Future Housing: No Difficulty Paying Gas/Electric Bills: No Difficulty Paying for Meds: No Currently Unemployed: No Education: Grade School Difficulty w/ Childcare or Family Care: No Living arrangements: with family Additional living arrangements comments: Patient lives in his own apartment. Grandson and his family are currently staying with him until they can get on her feet. Additional occupation/education comments: Next retired, on social security. Spiritual care concerns: No Anes - Eval Final PreProcedure Day of Procedure 12/06/22 09:38 Patient weight: normal Heart: regular rate and rhythm Lungs: clear to auscultation Airway: Mallampati scale class II Neurological: alert and oriented Last oral intake: >/= 8 hours ASA classification: IV Emergent: no Anesthetic plan: proceed Anesthesia type and monitoring: general GIVS and standard monitoring Results Review: All pre-operative results and documents have been reviewed as part of the pre- operative evaluation. Informed Consent: The patient's anesthetic plan and its attendant risks and benefits were discussed with the patient/family/POA. Questions were solicited and answers provided to the satisfaction of the patient/family/POA. This report may have been done utilizing a voice recognition system. Attempts have been made to correct errors. However, th
--- NOTE | 2022-12-06 09:53 | PM.CNPUL ---
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 Patient has been seen by Oncology and the plan per Dr. Norton note dated 11/22/2022 was for concurrent chemotherapy with carboplatin a min Taxol followed by durable loop a map maintenance. The patient was scheduled to receive a port and scheduled to see radiation oncology in consultation on 12/06/2022. Patient was admitted with shortness of breath and found to be in atrial fibrillation and rapid ventricular response and his respiratory status returned to normal after he converted to sinus rhythm with amiodarone in the emergency department. Patient was initially treated for postobstructive pneumonia with vanc and Zosyn. Today the patient denies any infectious complaints and states that he is back at his baseline. His CT scan shows progression of his lung cancer and I do not feel there is bacterial postobstructive pneumonia at this time. Would discontinue antibiotics and monitor the patient. The patient has no wheezing and I do not think there is a COPD exacerbation. Dr. Norton his oncologist has been consulted and will continue to provide treatment for his lung cancer. Will sign off. Call with questions. 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 Patient has been seen by Oncology and the plan per Dr. Norton note dated 11/22/2022 was for concurrent chemotherapy with carboplatin a min Taxol followed by durable loop a map maintenance. The patient was scheduled to receive a port and scheduled to see radiation oncology in consultation on 12/06/2022. Since 12/05/2022 the patient has been having shortness of breath but denied fever, chills, rigors, change in his chronic cough, change in his chronic production of clear phlegm and no hemoptysis. Patient presented to the emergency room on 12/05/2021 and was in atrial fibrillation with rapid ventricular response at a heart rate of 123. His room air saturations were 96. His white blood cell count was 11.0 with 0.3% eosinophils, his creatinine was 1.0, is BNP was 400 and his COVID in influenza RT PCR studies were negative. His troponin was negative x1. Patient had a room air blood gas 7.43/37/85. Patient had a CT angiogram of the chest that showed mild apical predominant centrilobular emphysema, no pulmonary embolism, increase mediastinal lymphadenopathy with a small right effusion and a small pericardial effusion. Patient was treated with diltiazem but his blood pressure was low and then was treated with amiodarone and converted to sinus rhythm. Patient was started on vancomycin and Zosyn empirically and admitted to the floor. When I talked to the patient he said that after his heart rate had slowed down he was breathing back to his normal baseline. Patient did well overnight and remains on room air with saturations 100% this morning he is in sinus of 80. Patient states he is breathing back to his baseline and denies any fever, cough, phlegm production, change in phlegm production or hemoptysis. His white blood cell count is 7.5, his creatinine is 1.0. DATA EXAMINATION: CTA chest PE protocol DATE: 12/05/2022 12:18 INDICATION: Shortness of breath. TECHNIQUE: Computed tomography angiography (CTA) of the chest was performed with 100 mL Omnipaque-350 intravenous contrast timed to evaluate the pulmonary arteries. Co
--- NOTE | 2022-12-06 12:11 | PM.CNCAR ---
Assessment and Plan Assessment and plan (1) Atrial fibrillation with RVR: Code(s): I48.91 - Unspecified atrial fibrillation Status: Acute Plan TSH was normal. An echo has been ordered and is pending, will follow-up on results. Telemetry shows sinus rhythm. Will stop Amiodarone drip and transition to oral Amiodarone. Given his SBP is in the 80s-90s, I do not think he would be able to tolerate beta-blockers for rate control. Therefore, will keep him on Amio. [id number] is 1, does not need therapeutic anticoagulation at this time. History of Present Illness History of Present Illness Consult date/time: 12/06/22 12:11 Requesting physician: Niki Conti PA-C Consult reason: atrial fibrillation Reason For Visit: Afib RVR/Obsturctive Pneumonia/Lung Cancer Narrative: We are being consulted for atrial fibrillation with RVR. This is a 67-year-old male with a history of prior cocaine use (stopped in fall 2021), tobacco dependence, squamous cell carcinoma of the lung who presented to the ER for shrotness of breath. In the ER, he was noted to be in atrial fibrillation with RVR. Given Diltiazem, however with his low blood pressures, this was stopped, and he was started on an Amiodarone drip instead. He ended up converting to sinus rhythm. No known history of atrial fibrillation or other cardiac issues. Patient this morning denies chest pain, palpitations, shortness of breath, lightheadedness/dizziness. Review of Systems Review of Systems: 12-point ROS obtained. Negative, unless stated in HPI. ON LICENSE OF [facility] Past Medical History Medical History Cocaine abuse Clean since fall 2021. Nicotine dependence with current use Squamous cell carcinoma of right lung Surgical History Surgical History History of open reduction and internal fixation (ORIF) procedure Right hip pinning. Family History Family History Mother COPD (chronic obstructive pulmonary disease) Sibling Lung cancer Father Brain cancer Social History Social History Social History: Surrogate decision maker: oc Bolanos. Code status: Full code. Years smoked: 45 Smoking status: Current every day smoker Tobacco type: cigarettes Additional smoking assessment comments: Down to 1 cigarette a day. Alcohol intake: former Substance use: former Substance use type: crack/cocaine Last use: 05/2022 Lack of Transportation: No Lack of Food: Never True Current Housing: I Have Housing Concerned About Future Housing: No Difficulty Paying Gas/Electric Bills: No Difficulty Paying for Meds: No Currently Unemployed: No Education: Grade School Difficulty w/ Childcare or Family Care: No Additional living arrangements comments: Patient lives in his own apartment. Grandson and his family are currently staying with him until they can get on her feet. Additional occupation/education comments: Next retired, on social security. Spiritual care concerns: No Meds Home Medications and Allergies Home Medications Medication Instructions Recorded Confirmed Type cyanocobalamin (vitamin B-12) 1,000 mcg PO DAILY #30 caps 10/24/22 12/05/22 Rx 1,000 mcg capsule ferrous sulfate 325 mg (65 mg 325 mg PO BIDWM #60 tabs 10/24/22 12/05/22 Rx iron) tablet Allergies Allergy/AdvReac Type Severity Reaction Status Date / Time No Known Allergies Allergy Verified 12/05/22 10:13 Vital Signs Vital Signs - 24 hr 12/05/22 12:31 12/05/22 12:31 12/05/22 13:13 Temperature Pulse Rate 134 H 139 H 80 Respiratory Rate 34 H 33 H Blood Pressure 95/65 L 95/65 L Pulse Oximetry 96 100 Oxygen Delivery 12/05/22 13:15 12/05/22 13:30 12/05/22 13:31 Temperature Pulse Rate 81 79 79 Respiratory Rate 17 34 H 17
[2022-12-06] MEDS: AMIODARONE HCL 200 MG TABLET PO (14:03)
--- NOTE | 2022-12-06 15:05 | PM.CNGS ---
Assessment and Plan Assessment and plan (1) Squamous cell carcinoma of right lung: Code(s): C34.91 - Malignant neoplasm of unspecified part of right bronchus or lung Status: Acute Assessment and Plan: Patient was scheduled for placement of a Port-A-Cath as an outpatient tomorrow. Since he is now an inpatient, we will still plan on proceeding with surgery tomorrow if he is cleared by Cardiology. Description of the procedure, risks, benefits, and expected recovery were discussed with the patient in detail. All questions were answered and he agrees to proceed. Will make him NPO after midnight. (2) Atrial fibrillation with RVR: Code(s): I48.91 - Unspecified atrial fibrillation Status: Acute Assessment and Plan: Converted to sinus rhythm. Cardiology following, echo pending. (3) Nicotine dependence with current use: Code(s): F17.200 - Nicotine dependence, unspecified, uncomplicated Status: Acute Plan I have discussed the patient's case and plan of care with Dr. Robles. History of Present Illness Consult details Consult date: 12/06/22 Reason for consult: other (Port-a-cath placement) Requesting physician: Ab Neumann MD Narrative: This is a 67-year-old man with a history of tobacco abuse and previous substance abuse who was recently diagnosed with squamous cell carcinoma of the lung. He was referred to our office as an outpatient for Port-A-Cath placement and was scheduled for surgery tomorrow. At baseline, he deals with shortness of breath, although over the last few days this has become significantly worse. Therefore he presented to the ER yesterday. He was found to be in atrial fibrillation with RVR. He was admitted to the hospitalist service and was started on an amiodarone drip. Cardiology has been consulted and he has since converted back to sinus rhythm. We have now been asked to see the patient in consultation for placement of a Port-A-Cath. Patient is now seen in the IMU. He is not currently on any anticoagulation and has been switched to oral amiodarone. An echocardiogram was ordered and pending. He states his breathing has returned to baseline after converting to sinus rhythm. Review of Systems Review of Systems: All systems reviewed & are unremarkable except as noted in HPI and below PMFSH Past Medical History Medical History Cocaine abuse Clean since fall 2021. Nicotine dependence with current use Squamous cell carcinoma of right lung Surgical History Surgical History History of open reduction and internal fixation (ORIF) procedure Right hip pinning. Family History Family History Mother COPD (chronic obstructive pulmonary disease) Sibling Lung cancer Father Brain cancer Social History Social History Social History: Surrogate decision maker: oc Bolanos. Code status: Full code. Years smoked: 45 Smoking status: Current every day smoker Tobacco type: cigarettes Additional smoking assessment comments: Down to 1 cigarette a day. Alcohol intake: former Substance use: former Substance use type: crack/cocaine Last use: 05/2022 Lack of Transportation: No Lack of Food: Never True Current Housing: I Have Housing Concerned About Future Housing: No Difficulty Paying Gas/Electric Bills: No Difficulty Paying for Meds: No Currently Unemployed: No Education: Grade School Difficulty w/ Childcare or Family Care: No Additional living arrangements comments: Patient lives in his own apartment. Grandson and his family are currently staying with him until they can get on her feet. Additional occupation/education comments: Next retired, on social security. Spiritual care concerns: No Meds Ho
--- NOTE | 2022-12-06 17:27 | PM.IMPN ---
Progress Note: A&P Assessment and Plan (1) Atrial fibrillation with RVR: Code(s): I48.91 - Unspecified atrial fibrillation Status: Acute (2) Squamous cell carcinoma of right lung: Code(s): C34.91 - Malignant neoplasm of unspecified part of right bronchus or lung Status: Acute (3) Postobstructive pneumonia: Code(s): J18.9 - Pneumonia, unspecified organism Status: Acute (4) Hyponatremia: Code(s): E87.1 - Hypo-osmolality and hyponatremia Status: Acute (5) Hypercalcemia: Code(s): E83.52 - Hypercalcemia Status: Acute Plan The patient presented to the ED for evaluation of several symptoms including headache, nausea, shortness of breath, and racing heart for the last couple of days. Found to be in new onset atrial fibrillation with rapid ventricular response. Initially started on diltiazem which decreased his blood pressures. He has since converted to a sinus rhythm on amiodarone. AFib most likely precipitated by his lung disease. Cardiology has been consulted for recommendations. He is being monitored on telemetry overnight. TSH and echocardiogram ordered. No pulmonary embolism was noted on CTA of the chest. Postobstructive pneumonia noted and he has been started on antibiotics. Sodium is low today and he looks a bit dry on exam, likely a bit dehydrated from poor oral intake. SIADH is also consideration given underlying lung cancer thus will check urine serum osmolality as well as urine sodium. Calcium is now high the when it was normal during his last visit, perhaps due to dehydration though concerning given his lung cancer. He has cut back heavily on smoking and is now smoking maybe 1 cigarette a day. He declines the need for nicotine patch. Labs, imaging, and EKG were all reviewed personally. 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 patient's sister is present in room gave update and answer all her questions Subjective Date/time seen: 12/06/22 17:27 Chief Complaint: Shortness of breath. HPI-Narrative: This is a 67-year-old male smoker who presented to the emergency department for evaluation of shortness of breath. He is known to the hospitalist service from an admission in October 2022 at which time he was admitted with a 10 cm perihilar mass and post-obstructive pneumonia after presenting with shortness of breath. Right lung biopsy showed invasive squamous cell carcinoma. Today he was supposed to have an appointment to discuss treatment however he was directed to the emergency department instead for evaluation of symptoms that he has been having the last couple of nights to include a pounding headache, nausea, palpitations, racing heart, and cough occasionally productive. He has not had fever, chills, or sweats. Appetite has been poor, he just is not hungry. He estimates he has lost at least 20 pounds in the last several months. He denies vertigo, focal weakness, and paresthesias. No exertional chest pain or pleuritic pain. EKG on arrival to the ED showed atrial fibrillation with rapid ventricular response and nonspecific T-wave abnormalities in the high lateral leads.? He was initially started on a diltiazem drip though his blood pressures dropped and he was instead transition to an amiodarone drip and he has since converted to a sinus rhythm. He has no known history of atrial fibrillation and only started having symptoms within the last several days. He has been afebrile since arrival. CTA of the chest showed no evidence of pulmonary em
--- NOTE | 2022-12-06 21:59 | ECHO_ITS ---
Patient Info Name: Alonso Camara Age: 67 years : 1955 Gender: Male Ht: 67 in Wt: 109 lbs BSA: 1.51 m2 HR: 70 bpm BP: 98 / 57 mmHg Heart Rhythm: Sinus Rhythm Technical Quality: Fair Exam Date: 12/06/2022 11:19 AM Exam Location: [facility] Pulmonary Exam Room: 211 Patient Status: Inpatient Admit Date: 12/05/2022 Staff Ordering Physician: Niki Conti PA-C Biochemist: Pallavi Guajardo RCS Attending Provider: Dwight Masterson MD Referring Physician: Sushila SOTELO; Exam Type: CA echo doppler color flow Study Info Indications - new onset atrial afib hx/o lung ca Complete two-dimensional, color flow and Doppler transthoracic echocardiogram is performed. Summary 1. Complete two-dimensional, color flow and Doppler transthoracic echocardiogram is performed. 2. Left ventricular systolic function is normal, estimated at 50-55%. 3. There is mildly increased left ventricular wall thickness. 4. Right ventricular chamber dimension is normal. 5. Right ventricular systolic function is normal. 6. There is mild mitral valve regurgitation. 7. There is mild tricuspid valve regurgitation. 8. There is trivial pericardial effusion. 9. There is an extracardiac mass which is seen to be compressing upon both the right and left atria. Chest CTA done 12/05/2021 shows a 10.6cm x 7.9cm right hilar mass which compresses the atria. Mass seen on echo is likely the same mass seen on CTA. Left Ventricle Left ventricular chamber dimension is normal. Left ventricular systolic function is normal, estimated at 50-55%. There is mildly increased left ventricular wall thickness. Right Ventricle Right ventricular chamber dimension is normal. Right ventricular systolic function is normal. Left Atria Left atrial chamber dimension is normal. Right Atria Right atrial chamber dimension is normal. Atrial Septum Intact interatrial septum visualized by color flow imaging. Aortic Valve The aortic valve is trileaflet. There is no aortic valve stenosis. There is no aortic valve regurgitation. Pulmonic Valve The pulmonic valve is not well visualized. Mitral Valve The mitral valve has normal leaflets. There is mild mitral valve regurgitation. Tricuspid Valve There is mild tricuspid valve regurgitation. Other Findings There is an extracardiac mass which is seen to be compressing upon both the right and left atria. Chest CTA done 12/05/2021 shows a 10.6cm x 7.9cm right hilar mass which compresses the atria. Mass seen on echo is likely the same mass seen on CTA. Pericardium/Pleural There is trivial pericardial effusion. Inferior Vena Cava Normal inferior vena cava with <50% collapse upon inspiration consistent with elevated right atrial pressure. Aorta The aortic root size at the sinus of Valsalva is normal. Left Ventricular Outflow Tract Name Value Normal LVOT 2D LVOT Diameter 2.0 cm LVOT Doppler LVOT Peak Gradient 3 mmHg LVOT Mean Gradient 2 mmHg LVOT VTI 12 cm LVOT VTI/AV VTI Ratio 0
[2022-12-06] MEDS: HYDROcodone/acetaminophen (*CRX) 5-325 MG TABLET 1 TAB PO (22:16)
[2022-12-07] VITALS (15 sets, daily range): BP systolic 80–124; BP diastolic 46–74; PULSE 64–89; RESP 14–24; TEMP 36–36.5; O2SAT 97–100
[2022-12-07] MEDS: SODIUM CHLORIDE 0.9% IV 1,000 ML 75 ML IV CONT ×3 (04:45→12:17)
[2022-12-07] MEDS: HYDROcodone/acetaminophen (*CRX) 5-325 MG TABLET 1 TAB PO (04:52)
[2022-12-07 05:22] LABS: Estimated CRCL calculation 56 ml/min; Estimated Glomerular Filt Rate > 60
[2022-12-07] MEDS: LACTATED RINGERS 1,000 ML 30 ML IV CONT (07:00)
[2022-12-07] MEDS: AMIODARONE HCL 200 MG TABLET PO (07:20)
--- NOTE | 2022-12-07 07:20 | WPDHPUPDATE1 ---
History and Physical Update Update Date/Time: 12/07/22 07:20 History and Physical has been reviewed, including an updated exam of the patient. There are NO changes in the patient's condition. Risks, benefits, and alternatives have been discussed and questions answered. Patient agrees to proceed with procedure. Proceed with placement of portacatheter today in OR under IV sedation and local anesthesia. Risks to include bleeding, infection, iatrogenic pneumothorax discussed with pt and he agrees to proceed.
[2022-12-07] MEDS: ceFAZolin 2 GM/D5W 50 ML 2 GM/50 ML BAG IVPB (07:28)
[2022-12-07] MEDS: HEPARIN SODIUM 1,000 UNITS/ML VIAL 1000 UNITS IV PUSH (08:19)
[2022-12-07] MEDS: HEPARIN SODIUM 5,000 UNITS/ML VIAL 5000 UNITS SUB-Q (08:21)
--- NOTE | 2022-12-07 08:23 | W.PM.PROC2 ---
Procedure Note - Detailed Date of Procedure 12/07/22 Pre-op Diagnosis Afib RVR/Obsturctive Pneumonia/Lung Cancer Post-op Diagnosis Same Procedure Performed Right internal jugular vein single-lumen Port-A-Cath catheter placement Surgeon Harley Robles MD Nuclear Medicine Specialist Sylvia Parsons [facility] Anesthesia MAC Description of Procedure Indications: Patient is a 67-year-old gentleman who unfortunately has right lung cancer which is to be treated with chemotherapy treatment he presents now for placement of a port catheter for chemotherapy. After informed consent was obtained the patient was brought to the operating room was placed supine on the operating table with both arms tucked. There the bilateral upper chest and bilateral neck regions were then prepped and draped in usual sterile fashion. A time-out was then performed correctly identifying the patient as well as the procedure to be performed verifying the side of placement. He was given 2g of Ancef for perioperative IV antibiotics. He was then placed in the head-down Trendelenburg position and then utilizing a mixture of 0.5% Marcaine and 2% lidocaine with epinephrine I injected this between the 2 heads of the right sternocleidomastoid muscle. A 21gauge seeker needle was then used to percutaneously cannulate the right internal jugular vein with return of dark venous appearing blood. This was then followed with percutaneous cannulation of the right internal jugular vein with an 18gauge spinal needle. Again there was prompt return of dark venous appearing blood. A guidewire was advanced through the 18gauge needle into the right internal jugular vein and subsequently into the superior vena cava and into the right atrium. There was no cardiac ectopy. Fluoroscopy was used to then verify that the guidewire was in the proper position. I then proceeded to anesthetize the anterior chest wall with local anesthetic mixture and then made a transverse incision in this area just below the midportion of the right clavicle. Dissection was carried down through subcutaneous tissues electrocautery and then with blunt finger dissection I dissected the port pocket just at the level of the anterior fascia of the pectoralis major muscle. I then enlarged the insertion site of the guidewire with a 11. Blade scalpel. The 8 Frisian catheter was then tunneled from the incision on the right anterior chest to the right neck incision. I then advanced a dilator breakaway sheath over the guidewire and then removed the guidewire and dilator leaving the sheath in place. The single-lumen catheter was advanced through the sheath into the right internal jugular vein and subsequently into the superior vena cava and right atrium. Again utilizing intraoperative fluoroscopy I then pulled back on the catheter until the tip was at the right atriocaval junction. I then cut the catheter to the appropriate length at the skin level and then attached it to the port. The port was then secured in the subcutaneous pocket on the right anterior chest with 3 separate 3-0 Prolene sutures. I then accessed the port percutaneously and it david back blood easily and was flushed with heparinized saline solution. We then proceeded to close incision lightly interrupted 3-0 Vicryl sutures in subcutaneous tissues and then the skin edges were approximated utilizing a running subcuticular 4-0 Monocryl suture. The small neck incision was also closed utilizing a 4-0 Monocryl suture. Both small incisions were then dressed with skin glue. Lastly I accessed the port percutaneously 1 last time and I david blood back blood easily. I then flushed it with 5000units of heparinized saline solution. The patient tolerated the procedure well no complications. All sponge needles and instrument counts were correct at the end the procedure. Osmolality was 5cc. The patient was taken to the recovery room in stable condition. Postprocedure chest x-ray was taken and the reading was pending a
[2022-12-07] MEDS: CYANOCOBALAMIN 1,000 MCG TABLET 1000 MCG PO (10:43)
--- NOTE | 2022-12-07 13:28 | PM.DS ---
DS: Admitting Diagnosis Discharge Date 12/07/2022 Admitting Diagnosis Shortness of breath. DS: Discharge Diagnosis Discharge Diagnosis (1) Atrial fibrillation with RVR: Code(s): I48.91 - Unspecified atrial fibrillation Status: Acute (2) Squamous cell carcinoma of right lung: Code(s): C34.91 - Malignant neoplasm of unspecified part of right bronchus or lung Status: Acute (3) Postobstructive pneumonia: Code(s): J18.9 - Pneumonia, unspecified organism Status: Acute (4) Hyponatremia: Code(s): E87.1 - Hypo-osmolality and hyponatremia Status: Acute (5) Hypercalcemia: Code(s): E83.52 - Hypercalcemia Status: Acute Plan The patient presented to the ED for evaluation of several symptoms including headache, nausea, shortness of breath, and racing heart for the last couple of days. Found to be in new onset atrial fibrillation with rapid ventricular response. Initially started on diltiazem which decreased his blood pressures. He has since converted to a sinus rhythm on amiodarone. AFib most likely precipitated by his lung disease. Cardiology has been consulted for recommendations. He is being monitored on telemetry overnight. TSH and echocardiogram ordered. No pulmonary embolism was noted on CTA of the chest. Postobstructive pneumonia noted and he has been started on antibiotics. Sodium is low today and he looks a bit dry on exam, likely a bit dehydrated from poor oral intake. SIADH is also consideration given underlying lung cancer thus will check urine serum osmolality as well as urine sodium. Calcium is now high the when it was normal during his last visit, perhaps due to dehydration though concerning given his lung cancer. He has cut back heavily on smoking and is now smoking maybe 1 cigarette a day. He declines the need for nicotine patch. Labs, imaging, and EKG were all reviewed personally. 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 patient's sister is present in room gave update and answer all her questions DS: Summary Hospital Course Reason for hospitalization: Chief Complaint: Shortness of breath. Narrative: This is a 67-year-old male smoker who presented to the emergency department for evaluation of shortness of breath. He is known to the hospitalist service from an admission in October 2022 at which time he was admitted with a 10 cm perihilar mass and post-obstructive pneumonia after presenting with shortness of breath. Right lung biopsy showed invasive squamous cell carcinoma. Today he was supposed to have an appointment to discuss treatment however he was directed to the emergency department instead for evaluation of symptoms that he has been having the last couple of nights to include a pounding headache, nausea, palpitations, racing heart, and cough occasionally productive. He has not had fever, chills, or sweats. Appetite has been poor, he just is not hungry. He estimates he has lost at least 20 pounds in the last several months. He denies vertigo, focal weakness, and paresthesias. No exertional chest pain or pleuritic pain. EKG on arrival to the ED showed atrial fibrillation with rapid ventricular response and nonspecific T-wave abnormalities in the high lateral leads.? He was initially started on a diltiazem drip though his blood pressures dropped and he was instead transition to an amiodarone drip and he has since converted to a sinus rhythm. He has no known history of atrial fibrillation and only started having symptoms with
--- NOTE | 2022-12-07 16:37 | PC.NURSE ---
1445: Patient discharged home with his sister. Discharge education on Port a Cath site care and followup appointment with his doctor.
[2022-12-09 07:49] LABS: Ionized Calcium 6.1 mg/dL (4.8-5.6); Mycoplasma IgM Antibody Titer 129 U/mL (<770)
[2022-12-09 19:37] LABS: Legionella pneumophila Ag Ur Not Detected (Not Detected)
[2022-12-10 01:00] LABS: Vitamin D 1,25 (OH)2 Total 15 pg/mL (18-72); Vitamin D2 1,25 (OH)2 <8 pg/mL; Vitamin D3 1,25 (OH)2 15 pg/mL
[2022-12-11 16:38] LABS: Pneumococcal Antigen Urine Not Detected (Not Detected)
[2022-12-11 19:48] LABS: Osmolality, Urine 262 mOsm/kg (50-1200)
[2022-12-12 16:23] LABS: Parathyroid Hormone Related Pr 16 pg/mL (11-20)
== END 2022-12-07 15:01 | disposition home or self-care (01) | DRG 982 ==
LOC: ANHED 14:02 → ANHIMU 16:13
PROVIDERS: Physician Assistant; Surgery; Admitting Provider Hospitalist; Emergency Provider Emergency Medicine; Visit Provider Family Medicine
PROC: 0JH60WZ Insertion of Totally Implantable Vascular Access Device into Chest Subcutaneous Tissue and Fascia, Open Approach (ICD-10-PCS; principal; 2022-12-07 07:30)
DX: I48.91 Unspecified atrial fibrillation (principal); C34.01 Malignant neoplasm of right main bronchus; E87.1 Hypo-osmolality and hyponatremia; E83.52 Hypercalcemia; F17.210 Nicotine dependence, cigarettes, uncomplicated; Z20.822 Contact with and (suspected) exposure to COVID-19
CPT/HCPCS: 36415; 36600; 70450; 71045; 71275; 77001; 80048; 80053; 82330; 82375; 82565; 82570; 82652; 82805; 83050; 83519; 83735; 83880; 83930; 83935; 83970; 84100; 84300; 84443; 84484; 85025; 85027; 85610; 85730; 86738; 87040; 87070; 87205; 87449; 87636; 87899; 93005; 93306; 96361; 96365; 96366; 96367; 96368; 96375; 99285; A9270; C1788; G0378; J0282; J0690; J1644; J2270; J2543; J2704; J3010; J3370; J7030; J7120; Q9967

== ENCOUNTER 2022-12-18 13:18 | Inpatient (IN) | payer MEDICARE, MEDICAID, SELFPAY ==
[2022-12-18] VITALS (24 sets, daily range): BP systolic 88–114; BP diastolic 64–93; PULSE 70–167; RESP 14–31; TEMP 36.2–36.9; O2SAT 78–100
--- NOTE | ~2022-12-18 | XR_ITS ---
XR chest 2V DATE: 12/18/2022 15:08 INDICATION: Shortness of breath. History of right lung cancer. TECHNIQUE: AP and lateral views COMPARISON: 12/07/2022 portable AP chest 12/05/2022 CT pulmonary scan FINDINGS: There is complete obstruction of the proximal right mainstem bronchus with complete opacifi cation of the right hemithorax and shift of the heart mediastinum rightward. There is compensatory hy peraeration of the left lung which appears clear. No left pleural effusion. Right pleural effusion is not excluded. Right Port-A-Cath catheter tip overlies the superior vena cava. Included skeletal structures are unremarkable. IMPRESSION: Complete right lung atelectasis, with occlusion of the very proximal right mainstem bronc hus Reviewed, dictated and finalized at location L. [facility] IMPRESSION: Complete right lung atelectasis, with occlusion of the very proxima l right mainstem bronchus
--- NOTE | ~2022-12-18 | CT_ITS ---
Noncontrast CT scan of the cervical spine Technique: Multiple contiguous axial [address] images of the cervical spine were obtained and rec onstructed in 2D sagittal and coronal planes on the acquisition scanner. Dose reduction technique was used on this scan by utilizing automated exposure control, adjustment of the mA and/or kV according to patient size. Clinical History: Pain Findings: No fracture present. Minimal grade 1 retrolisthesis of C5 noted. There is mild degenerative disc change at C5-C6. Scattered facet joint degenerative changes are present. No prevertebral soft t issue swelling. Complete opacification of the visualized right lung apex noted. Impression: No fracture. Minimal grade 1 anterolisthesis of C5. Mild degenerative changes, as above. Complete opacification of visualized right lung apex region. Please refer to separately reported [facility] t CT dated 12/18/2022 for further details and thoracic findings. Reviewed, dictated and finalized at [facility]. NDARY TEACHER Impression: No fracture. Minimal grade 1 anterolisthesis of C5. Mild degenerative changes, as above. Complete opacification of visualized right lung apex region. Please refer to se ortiz reported chest CT dated 12/18/2022 for further details and thoracic fin dings.
--- NOTE | ~2022-12-18 | CT_ITS ---
EXAMINATION: CTA chest PE protocol DATE: 12/18/2022 15:43 INDICATION: Chest pain. Shortness of breath. TECHNIQUE: Computed tomography angiography (CTA) of the chest was performed with 100 mL Omnipaque-350 intravenous contrast timed to evaluate the pulmonary arteries. Coronal maximum intensity projection 3D-reconstructions were created by the technologist. Automated exposure control and iterative reconst ruction technique were employed. The dose-length product was 172.81 mGy-cm. COMPARISON: Chest CT 12/05/2022 FINDINGS: There is an ill-defined large mass centered at right hilum with invasion of the left atrium of the heart, narrowing of the perihilar pulmonary arteries, and occlusion of right mainstem bronchu s. There is complete collapse of right lung. Calcified right lung nodules are consistent with old gra nulomatous disease. There is a small right pleural effusion. There are 3 nodules in left lung measuri ng up to 7 mm. There is rightward shift of the mediastinum. The heart is not enlarged. There is nodul ar pericardial thickening. Mediastinal lymphadenopathy is noted. There is no pulmonary embolus. There is contrast in the gallbladder, which is normal in size. There is a right internal jugular port with tip in superior vena cava. There are old healed right rib fractures. There is mild thoracic spondylo sis. IMPRESSION: 1. No pulmonary embolus. 2. Large right hilar mass with occlusion of right mainstem bronchus, consistent with primary bronchog enic carcinoma. 3. Worsened complete collapse of right lung. 4. Stable small right pleural effusion. 5. Nodular pericardial thickening, mediastinal lymphadenopathy, and left lung nodules, consistent wit h metastatic disease. Reviewed, dictated and finalized at location A. UP WORKER IMPRESSION: 1. No pulmonary embolus. 2. Large right hilar mass with occlusion of right mainstem bronchus, consistent with primary bronchogenic carcinoma. 3. Worsened complete collapse of right lung. 4. Stable small right pleural effusion. 5. Nodular pericardial thickening, mediastinal lymphadenopathy, and left lung n odules, consistent with metastatic disease.
--- NOTE | 2022-12-18 13:53 | ECG_ITS ---
Measurements Intervals [place] Rate: 157 P: GA: 0 QRS: -53 QRSD: 111 T: 93 QT: 279 QTc: 452 Interpretive Statements ATRIAL FIBRILLATION WITH RAPID VENTRICULAR RESPONSE LEFT ANTERIOR FASCICULAR BLOCK NONSPECIFIC ST & T-WAVE ABNORMALITY- LAT/HIGH LAT LEADS ABNORMAL ECG COMPARED TO ECG 12/05/2022 15:01:02 ATRIAL FIBRILLATION NOW PRESENT LEFT ANTERIOR FASCICULAR BLOCK NOW PRESENT Electronically Signed On 12-18-2022 14:22:32 PRESCHOOL TEACHER AIDE by Ezequiel Cali D.O.
[2022-12-18 14:10] LABS: Basophils Absolute Auto 0.1 K/mm3 (0.0-0.1); Basophils Percent Auto 0.5 % (0.2-1.2); Hematocrit 41.1 % (42.0-52.0); Hemoglobin 12.1 g/dL (14.0-18.0); Immature Granulocyte Absolute 0.06 K/mm3 (0.00-0.031); Immature Granulocyte Percent A 0.5 % (0-0.5); Lymphocytes Absolute Auto 1.58 K/mm3 (0.9-3.2); Lymphocytes Percent Auto 14.4 % (18.3-44.2); Mean Corpuscular HGB Conc 29.4 g/dl (32-36); Mean Corpuscular Hemoglobin 22.7 pg (26-34); Mean Corpuscular Volume 77.1 fl (80-100); Monocytes Absolute Auto 0.8 K/mm3 (0.1-0.6); Monocytes Percent Auto 7.5 % (2.6-8.5); Neutrophils Absolute Auto 8.4 K/mm3 (1.3-6.7); Neutrophils Percent Auto 77.1 % (45.5-73.1); Platelet Count Result 619 k/mm3 (150-375); Red Blood Count 5.33 M/mm3 (4.6-6.20); Red Cell Distribution Width 18.3 % (11.5-14.5)
[2022-12-18 14:18] LABS: Alanine Aminotransferase 24 U/L (6-50); Albumin Level 3.6 g/dL (3.5-5.1); Alkaline Phosphatase 109 U/L (38-126); Anion Gap 9 mmol/L (8-16); Aspartate Amino Transferase 26 U/L (17-59); Bilirubin,Total 0.8 mg/dL (0.2-1.3); Blood Urea Nitrogen 19 mg/dL (9-20); Calcium 12.2 mg/dL (8.4-10.2); Carbon Dioxide 27 mmol/L (22-30); Chloride 96 mmol/L (98-107); Estimated CRCL calculation 61 ml/min; Estimated Glomerular Filt Rate > 60; Glucose 150 mg/dL (65-110); Potassium 4.9 mmol/L (3.4-5.0); Sodium 132 mmol/L (137-145)
[2022-12-18 14:21] LABS: Anisocytosis 1+ (NORMAL); Hypochromasia 1+ (NORMAL); Platelet Estimate Increased (Adequate); Schistocytes None Seen (NORMAL)
--- NOTE | 2022-12-18 14:28 | PC.NURSE ---
pt states he wants to be admitted because he cant take care of himself anymore. states he has to be here tomorrow anyway to have his port checked.
[2022-12-18] MEDS: SODIUM CHLORIDE 0.9% IV 1,000 ML 999 ML (14:30)
[2022-12-18] MEDS: ONDANSETRON INJ 4 MG/2 ML VIAL IV PUSH ×2 (15:01→22:42)
--- NOTE | 2022-12-18 15:01 | ED.GENADULT ---
HPI - General Adult General Chief complaint: Weakness Stated complaint: failure to thrive, stage 4 cancer Time Seen by Provider: 12/18/22 14:16 History of Present Illness HPI narrative: Patient is a 67-year-old male with a history of metastatic lung cancer presenting with generalized weakness and chest pain. Patient states that he was recently seen here and diagnosed with lung cancer. He was treated for pneumonia at this time. States that he has been following with oncology but they have not started treatment yet. States that over the last several days he has been increasingly weak and complains of pain in his chest and upper back. Also complains of worsening exertional dyspnea. Reports chronic cough. States that he did have an episode of palpitations earlier today. No lightheadedness, fevers, abdominal pain, vomiting, diarrhea, leg swelling. Related Data Allergies Allergy/AdvReac Type Severity Reaction Status Date / Time No Known Allergies Allergy Verified 12/14/22 15:07 Review of Systems Review of Systems: All systems reviewed & are unremarkable except as noted in HPI and below PMFSH Past Medical History Medical History Cocaine abuse Clean since fall 2021. Nicotine dependence with current use Squamous cell carcinoma of right lung Surgical History Surgical History History of open reduction and internal fixation (ORIF) procedure Right hip pinning. Family History Family History Mother COPD (chronic obstructive pulmonary disease) Sibling Lung cancer Father Brain cancer Social History Social History Social History: Surrogate decision maker: Gilberto Garcia, grandson. Code status: Full code. Smoking packs per day: 2 Smoking cigarettes per day: 40.0 Years smoked: 25 Smoking pack-years: 50.00 Smoking status: Current every day smoker Tobacco type: cigarettes Additional smoking assessment comments: Down to 1 cigarette a day. Alcohol intake: former Substance use: former Substance use type: crack/cocaine Last use: 05/2022 Lack of Transportation: No Lack of Food: Never True Current Housing: I Have Housing Concerned About Future Housing: No Difficulty Paying Gas/Electric Bills: No Difficulty Paying for Meds: No Currently Unemployed: No Education: Grade School Difficulty w/ Childcare or Family Care: No Additional living arrangements comments: Patient lives in his own apartment. Grandson and his family are currently staying with him until they can get on her feet. Additional occupation/education comments: Next retired, on social security. Spiritual care concerns: No Exam Narrative: GENERAL: Frail appearing male in no acute distress HEAD: Normocephalic, atraumatic. EYES: PERRLA and EOMI. ENT: Nares clear, no rhinorrhea or epistaxis. Mucous membranes moist. NECK: Supple. CHEST: Diminished breath sounds bilaterally, right greater than left HEART: Tachycardic, irregular rhythm ABDOMEN: Soft, nontender, nondistended, normal active bowel sounds. EXTREMITIES: Normal range of motion. No edema. SKIN: Warm, dry, no rash. NEURO: No focal deficits. Alert and oriented x3. PSYCH: Normal mood and affect. Course Vital Signs Vital signs: Vital Signs Temperature 98.4 F 12/18/22 13:54 Pulse Rate 98 12/18/22 13:54 Respiratory Rate 16 12/18/22 13:54 Blood Pressure 113/64 12/18/22 13:54 Pulse Oximetry 100 12/18/22 13:54 Oxygen Delivery Room Air 12/18/22 13:54 Temperature 98.4 F 12/18/22 13:54 Pulse Rate 149 H 12/18/22 15:07 Respiratory Rate 16 12/18/22 13:54 Blood Pressure 105/81 12/18/22 15:07 Pulse Oximetry 100 12/18/22 13:54 Oxygen Delivery Room Air 12/18/22 13:54 Medical Decision Making RASHID Rice
[2022-12-18] MEDS: AMIODARONE 150 MG/D5W 100 ML 150 MG/100 ML BAG 600 MG IV CONT (15:07)
[2022-12-18 16:13] LABS: Lactic Acid Reflex 2.2 mmol/L (0.7-2.0)
[2022-12-18 16:14] LABS: INR 1.3; Partial Thromboplastin Time 21.3 SECONDS (22.3-36.8); Prothrombin Time 15.7 Seconds (11.1-14.7)
--- NOTE | 2022-12-18 16:18 | ECG_ITS ---
Measurements Intervals [place] Rate: 76 P: 55 WI: 164 QRS: -42 QRSD: 94 T: 36 QT: 298 QTc: 336 Interpretive Statements SINUS RHYTHM LEFT AXIS DEVIATION NONSPECIFIC T-WAVE ABNORMALITY- DIFFUSE LEADS BASELINE ARTIFACT- I, II, III, AVR, AVL, AVF, V1-V3 BORDERLINE ECG COMPARED TO ECG 12/18/2022 13:58:22 SINUS RHYTHM NOW PRESENT Electronically Signed On 12-20-2022 14:38:25 TRANSPLANT NURSE by Ezequiel Cali D.O.
[2022-12-18 16:25] LABS: Troponin I < 0.012 ng/mL (0.000-0.034)
[2022-12-18 16:41] LABS: Influenza A QL RT-PCR Negative (Negative); Influenza B QL RT-PCR Negative (Negative); RSV RNA, RT-PCR Negative (Negative); SARS-CoV-2 RNA PCR Negative
--- NOTE | 2022-12-18 18:30 | PM.IMHP ---
H&P: HPI History of Present Illness Date/Time: 12/18/22 18:30 Chief Complaint: Weakness and shortness of breath. Narrative: This is a very pleasant 67-year-old male smoker with relatively recent diagnosis of invasive squamous cell carcinoma of the right lung who presented to the emergency department for evaluation of shortness of breath. He is known to the hospitalist service from a recent admission on 12/05/2022 for new onset atrial fibrillation with rapid ventricular response and postobstructive pneumonia after presenting with shortness of breath. He converted to a sinus rhythm on amiodarone and has been taking 200 mg daily. He is not on anticoagulation due to CHADS2 Vasc score of 1. More recently he a Port-A-Cath inserted and is to start chemotherapy sometime this week. He seems to be in good spirits despite progressive weakness. He has been getting more short of breath with exertion. He has also been having right-sided pleuritic chest pain and more recently he has been having pain in the posterior neck. 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 In any event this morning he felt more weak, lightheaded, and dizzy with associated palpitations. On arrival to the ED he was once again found to be in atrial fibrillation with rapid ventricular response. He has since converted to a sinus rhythm following amiodarone bolus. CTA of the chest showed no evidence of pulmonary embolus. Once again a large right hilar mass was noted with occlusion of the right mainstem bronchus with worsened complete collapse of the right lung, stable small pleural effusion, and a nodular pericardial thickening, mediastinal lymphadenopathy, and left lung nodules consistent with metastatic disease. He is being admitted in this setting for close monitoring. Review of Systems Review of Systems: Twelve systems were reviewed and are negative except for as per HPI. [facility] Past Medical History Medical History Cocaine abuse Clean since fall 2021. Nicotine dependence with current use Squamous cell carcinoma of right lung Surgical History Surgical History History of open reduction and internal fixation (ORIF) procedure Right hip pinning. Family History Family History Mother COPD (chronic obstructive pulmonary disease) Sibling Lung cancer Father Brain cancer Social History Social History Social History: Surrogate decision maker: Gilberto Thomasensenoc. Code status: Full code. Smoking packs per day: 0.2 Smoking cigarettes per day: 4.0 Years smoked: 25 Smoking pack-years: 5.00 Smoking status: Current every day smoker Tobacco type: cigarettes Additional smoking assessment comments: Down to 1 cigarette a day. Alcohol intake: former Drinks per week: 4 Substance use: current Substance use type: marijuana Last use: 12/13/2022 Lack of Transportation: No Lack of Food: Never True Current Housing: I Have Housing Concerned About Future Housing: No Difficulty Paying Gas/Electric Bills: No Difficulty Paying for Meds: No Currently Unemployed: No Education: Grade School Difficulty w/ Childcare or Family Care: No Additional living arrangements comments: Patient lives in his own apartment. Grandson and his family are currently staying with him until they can get on her feet. Additional occupation/education comments: Next retired, on social security. Spiritual care concerns: No Meds Home Medications and Allergies Home Medications Medication Instructions Recorded Confirmed Type cyanocobalamin (vitamin B-12) 1,000 mcg PO DAILY #30 caps 10/24/22 12/18/22 Rx 1,000 mcg capsul
[2022-12-18 19:01] LABS: Reflex Lactic Acid Yes or No Add Lactic
[2022-12-18 19:40] LABS: Lactic Acid 1.7 mmol/L (0.7-2.0)
[2022-12-18 19:54] LABS: Troponin I < 0.012 ng/mL (0.000-0.034)
--- NOTE | 2022-12-18 20:13 | PC.NURSE ---
Patient arrived on unit at 20:00
[2022-12-18] MEDS: HYDROmorphone HCL INJ (*CRX) 1 MG/ML SYR 0.5 MG IV PUSH (22:36)
[2022-12-19] VITALS (10 sets, daily range): BP systolic 98–103; BP diastolic 65–69; PULSE 71–89; RESP 16–20; TEMP 36.3–36.8; O2SAT 99–100; BMI 17.4
[2022-12-19] MEDS: SODIUM CHLORIDE 0.9% IV 1,000 ML 100 ML IV CONT (01:26)
[2022-12-19 06:23] LABS: Hematocrit 30.8 % (42.0-52.0); Mean Corpuscular HGB Conc 29.2 g/dl (32-36); Mean Corpuscular Hemoglobin 22.4 pg (26-34); Mean Corpuscular Volume 76.8 fl (80-100); Mean Platelet Volume 8.9 fl (7.4-10.4); Platelet Count Result 439 k/mm3 (150-375); Red Blood Count 4.01 M/mm3 (4.6-6.20); Red Cell Distribution Width 17.5 % (11.5-14.5); White Blood Count 9.1 K/mm3 (4.5-10.0)
[2022-12-19 06:36] LABS: Anion Gap 2 mmol/L (8-16); Blood Urea Nitrogen 17 mg/dL (9-20); Calcium 11.3 mg/dL (8.4-10.2); Carbon Dioxide 29 mmol/L (22-30); Chloride 98 mmol/L (98-107); Estimated CRCL calculation 67 ml/min; Estimated Glomerular Filt Rate > 60; Glucose 90 mg/dL (65-110); Potassium 4.3 mmol/L (3.4-5.0); Sodium 129 mmol/L (137-145)
[2022-12-19] MEDS: FERROUS SULFATE 324 MG TABLET PO ×2 (09:44→16:55)
[2022-12-19] MEDS: AMIODARONE HCL 200 MG TABLET PO (09:44)
[2022-12-19] MEDS: CYANOCOBALAMIN 1,000 MCG TABLET 1000 MCG PO (09:44)
[2022-12-19] MEDS: DOXYCYCLINE HYCLATE 100 MG TABLET PO ×2 (09:45→20:42)
[2022-12-19] MEDS: ENOXAPARIN 40 MG/0.4 ML SYRINGE SUB-Q (09:45)
[2022-12-19] MEDS: HYDROcodone/acetaminophen (*CRX) 5-325 MG TABLET 1 TAB PO (14:46)
--- NOTE | 2022-12-19 17:21 | PM.IMPN ---
Progress Note: A&P Assessment and Plan (1) Atrial fibrillation with RVR: Code(s): I48.91 - Unspecified atrial fibrillation Status: Acute Assessment and Plan: He converted to a sinus rhythm after receiving an amiodarone bolus in the ED. CHADS2 Vasc score is 1 thus no indication for anticoagulation and that fact he has hemoptysis. Continue p.o. amiodarone. Continue to monitor on tele (2) Hyponatremia: Code(s): E87.1 - Hypo-osmolality and hyponatremia Status: Acute Assessment and Plan: May very well be related to SIADH from underlying lung disease and malignancy. Hydrated overnight and repeat labs showing Na 129. SLIVF. Follow (3) Hypercalcemia: Code(s): E83.52 - Hypercalcemia Status: Acute Assessment and Plan: Calcium is once again elevated. During his last stay his calcium did improve with IV fluids. Has a new complaints of neck pain, however CT of the cervical spine showing no metastatic disease. Calcium 11.3 now. Follow (4) Postobstructive pneumonia: Code(s): J18.9 - Pneumonia, unspecified organism Status: Acute Assessment and Plan: Continue doxycycline. Pulmonary consult for right pulmonary collapse but suspect not much can be done until he starts treatment for his lung cancer. (5) Squamous cell carcinoma of right lung: Code(s): C34.91 - Malignant neoplasm of unspecified part of right bronchus or lung Status: Acute Assessment and Plan: Dr. Norton consulted. Patient reports he is to start chemotherapy sometime this week. Dr Robles to see here to see if we can use the port. Do not want to delay chemo treatment. Subjective Date/time seen: 12/19/22 17:21 Interval history: 67yo male with lung cancer yet to be treated here for weakness and SOB Assuming care. Chart reviewed. Patient has not started treatment for his cancer. He is feeling better. He developed hemoptysis today which has been going off and on at home but much worse today. He has been having insomnia at home. He is supposed to follow-up with Dr. Robles today and make sure the port is functioning properly so we can begin chemotherapy. Exam Narrative: Gen - Thin male in NARD Chest - bronchial breath sounds heard throughout the right lung field. Normal respiratory rat CV - RRR S1/S2. Tele showing no acute dysrhythmias Abd - Soft, NT/ND, Positive BS Ext - No pedal edema Psych - Nml mood and affect Skin - Warm and dry Objective Data Vital Signs Vital Signs: Vital Signs - 24 hr 12/18/22 17:30 12/18/22 17:31 12/18/22 17:45 Temperature Pulse Rate 73 72 73 Respiratory Rate 25 H 26 H 23 H Blood Pressure 105/76 Pulse Oximetry 100 100 Oxygen Delivery 12/18/22 17:46 12/18/22 18:03 12/18/22 18:15 Temperature Pulse Rate 73 71 74 Respiratory Rate 20 27 H 16 Blood Pressure 98/74 L 98/76 L Pulse Oximetry 100 100 100 Oxygen Delivery 12/18/22 18:16 12/18/22 20:05 12/18/22 22:00 Temperature 97.1 F L Pulse Rate 70 84 Respiratory Rate 24 H 16 Blood Pressure 98/66 L Pulse Oximetry 99 100 Oxygen Delivery Room Air 12/18/22 20:00 12/19/22 00:00 12/19/22 04:00 Temperature Pulse Rate 79 71 71 Respiratory Rate Blood Pressure Pulse Oximetry Oxygen Delivery 12/19/22 05:04 12/19/22 09:44 12/19/22 09:45 Temperature 97.4 F L Pulse Rate 75 75 89 Respiratory Rate 16 Blood Pressure 103/65 Pulse Oximetry 99 Oxygen Delivery 12/19/22 09:45 12/19/22 12:00 12/19/22 14:00 Temperature 98.3 F Pulse Rate 88 80 Respiratory Rate 20 Blood Pressure 100/69 Pulse Oximetry 100 Oxygen Delivery Room Air Intake/Output Intake/Output: Intake & Output 12/16/22 12/17/22 12/18/22 12/19/22 23:59 23:59 23:59 23:59 Intake Total 1100 360 Output Total 300 Balance 1100 60 Meds/Results Medications: Active Medications Generic Name Dose Route Start Last Admin Trade Na
[2022-12-19] MEDS: HYDROmorphone HCL INJ (*CRX) 1 MG/ML SYR 0.5 MG IV PUSH (22:20)
[2022-12-20] VITALS (8 sets, daily range): BP systolic 104–108; BP diastolic 76–80; PULSE 72–88; RESP 16–19; TEMP 36.7–36.8; O2SAT 97–99
[2022-12-20] MEDS: HYDROcodone/acetaminophen (*CRX) 5-325 MG TABLET 1 TAB PO (02:48)
[2022-12-20 05:56] LABS: Basophils Absolute Auto 0.1 K/mm3 (0.0-0.1); Basophils Percent Auto 1.1 % (0.2-1.2); Eosinophils Absolute Auto 0.2 K/mm3 (0-0.3); Eosinophils Percent Auto 1.9 % (0-4.4); Hematocrit 31.3 % (42.0-52.0); Immature Granulocyte Absolute 0.02 K/mm3 (0.00-0.031); Immature Granulocyte Percent A 0.2 % (0-0.5); Lymphocytes Absolute Auto 1.91 K/mm3 (0.9-3.2); Lymphocytes Percent Auto 23.8 % (18.3-44.2); Mean Corpuscular HGB Conc 28.8 g/dl (32-36); Mean Corpuscular Hemoglobin 22.2 pg (26-34); Mean Corpuscular Volume 77.1 fl (80-100); Mean Platelet Volume 8.8 fl (7.4-10.4); Neutrophils Absolute Auto 4.8 K/mm3 (1.3-6.7); Platelet Count Result 365 k/mm3 (150-375); Red Blood Count 4.06 M/mm3 (4.6-6.20); Red Cell Distribution Width 17.6 % (11.5-14.5)
[2022-12-20 06:12] LABS: Alanine Aminotransferase 17 U/L (6-50); Albumin Level 2.9 g/dL (3.5-5.1); Alkaline Phosphatase 77 U/L (38-126); Anion Gap 1 mmol/L (8-16); Aspartate Amino Transferase 20 U/L (17-59); Bilirubin,Total 0.2 mg/dL (0.2-1.3); Blood Urea Nitrogen 18 mg/dL (9-20); Calcium 10.5 mg/dL (8.4-10.2); Carbon Dioxide 30 mmol/L (22-30); Chloride 101 mmol/L (98-107); Estimated CRCL calculation 42 ml/min; Estimated Glomerular Filt Rate > 60; Glucose 92 mg/dL (65-110); Sodium 132 mmol/L (137-145)
[2022-12-20 06:38] LABS: Platelet Estimate Adequate (Adequate)
[2022-12-20 06:39] LABS: Anisocytosis 1+ (NORMAL); Hypochromasia 2+ (NORMAL); Microcytosis 1+ (NORMAL); Schistocytes None Seen (NORMAL)
[2022-12-20] MEDS: FERROUS SULFATE 324 MG TABLET PO ×2 (09:08→17:23)
[2022-12-20] MEDS: AMIODARONE HCL 200 MG TABLET PO (09:08)
[2022-12-20] MEDS: DOXYCYCLINE HYCLATE 100 MG TABLET PO (09:08)
[2022-12-20] MEDS: CYANOCOBALAMIN 1,000 MCG TABLET 1000 MCG PO (09:08)
[2022-12-20] MEDS: ENOXAPARIN 40 MG/0.4 ML SYRINGE SUB-Q (09:10)
--- NOTE | 2022-12-20 09:28 | PM.CNPUL ---
Assessment and Plan Assessment and plan (1) Squamous cell carcinoma of right lung: Code(s): C34.91 - Malignant neoplasm of unspecified part of right bronchus or lung Status: Acute Assessment and Plan: patient presented with some nonspecific complaints like weakness and chest pain. He has had chronic chest pain and also chronic hemoptysis. Chest CT: No pulmonary embolus.Large right hilar mass with occlusion of right mainstem bronchus, consistent with primary bronchogenic carcinoma. Worsened complete collapse of right lung. Stable small right pleural effusion. Nodular pericardial thickening, mediastinal lymphadenopathy, and left lung nodules, consistent with metastatic disease. plan: chest CT showed no evidence of pulmonary embolism or lower respiratory tract infection. chest CT findings are consistent with his known stage IV lung cancer. Patient has appointment to see medical oncologist for chemotherapy. Continue with supportive care at this point. Will sign off please call with any questions. (2) Lung cancer: Code(s): C34.90 - Malignant neoplasm of unspecified part of unspecified bronchus or lung Status: Acute (3) Cocaine abuse: Code(s): F14.10 - Cocaine abuse, uncomplicated Status: Acute History of Present Illness History of Present Illness Consult date: 12/20/22 Chief complaint: Hypotension Narrative: This 67-year-old man presented with weakness and chest pain. The patient is well known to me. He presented with a hemoptysis in chest pain approximately 2 months ago. He underwent bronchoscopy bronchial biopsy which showed squamous cell cancer.. Subsequently on PET scan staging he was found to have advanced cancer involving mediastinal lymph nodes and also metastatic lesion in the left upper lobe. The patient was evaluated by Oncology and Radiation Oncology Services. He was not deemed candidate to undergo radiation therapy. the patient has an appointment with dr. Norton to start chemotherapy. the patient stated that he has had some weakness and chest pain as before. He has no new respiratory symptoms such as fever chills worsening of his cough or orthopnea. He continues to have almost daily hemoptysis. Review of Systems Review of Systems: All systems reviewed & are unremarkable except as noted in HPI and below ( In HPI and below) [facility] Past Medical History Medical History Cocaine abuse Clean since fall 2021. Nicotine dependence with current use Squamous cell carcinoma of right lung Surgical History Surgical History History of open reduction and internal fixation (ORIF) procedure Right hip pinning. Family History Family History Mother COPD (chronic obstructive pulmonary disease) Sibling Lung cancer Father Brain cancer Social History Social History Social History: Surrogate decision maker: oc Bolanos. Code status: Full code. Smoking packs per day: 0.2 Smoking cigarettes per day: 4.0 Years smoked: 25 Smoking pack-years: 5.00 Smoking status: Current every day smoker Tobacco type: cigarettes Additional smoking assessment comments: Down to 1 cigarette a day. Alcohol intake: former Drinks per week: 4 Substance use: current Substance use type: marijuana Last use: 12/13/2022 Lack of Transportation: No Lack of Food: Never True Current Housing: I Have Housing Concerned About Future Housing: No Difficulty Paying Gas/Electric Bills: No Difficulty Paying for Meds: No Currently Unemployed: No Education: Grade School Difficulty w/ Childcare or Family Care: No Additional living arrangements comments: Patient lives in his own apartment. Grandson and his family are currently staying with
[2022-12-20] MEDS: polyethylene glycoL 3350 17 GM POWD.PACK PO (12:21)
--- NOTE | 2022-12-20 13:01 | PDONCCN ---
[facility] - Date of Consult Date/Time: 12/20/22 13:01 Requesting Physician: Shazia Meadows DO Primary Care Provider: UNKNOWN,DOCTOR - Consult Narrative Reason for consult: Non-small cell lung cancer Narrative: Alonso Camara is a 67 year old male with locally advanced non-small cell lung cancer and going to start chemotherapy this week. He came into the hospital with generalized weakness along with worsening of shortness of breath. CTA chest showed no evidence of pulmonary embolism. There was large right hilar mass with occlusion of the right mainstem bronchus and complete collapse of the right lung. There was mediastinal lymphadenopathy. There was also complaining of the lump in the back of his neck with some discomfort. He was supposed to see Dr. Robles this week as well. Review of Systems - Review of Systems All systems reviewed & are unremarkable except as noted in HPI and [facility] Medical History: Medical History (Last Reviewed 12/19/22 @ 00:47 by Niki Conti PA-C) Cocaine abuse Clean since fall 2021. Nicotine dependence with current use Squamous cell carcinoma of right lung Surgical History: Surgical History (Last Reviewed 12/19/22 @ 00:47 by Niki Conti PA-C) History of open reduction and internal fixation (ORIF) procedure Right hip pinning. Family History: Family History (Last Reviewed 12/19/22 @ 00:47 by Niki Conti PA-C) Mother COPD (chronic obstructive pulmonary disease) Sibling Lung cancer Father Brain cancer - Social History Social History: Social History (Last Reviewed 12/19/22 @ 00:47 by Niki Conti PA-C) Alcohol Use: Alcohol intake: former Drinks per week: 4 Substance Use: Substance use: current Substance use type: marijuana Last use: 12/13/2022 Others: Spiritual care concerns: No Smoking Status: Smoking status: Current every day smoker Tobacco type: cigarettes Smoking Pack-years: Smoking packs per day: 0.2 Smoking cigarettes per day: 4.0 Years smoked: 25 Smoking pack-years: 50.00 Comments: Additional smoking assessment comments: Down to 1 cigarette a day. Social Determinants of Health: Has the Lack of Transportation Kept You From Medical Appointments or From Getting Medications?: No Within the Past 12 Months, Were You Worried Whether Your Food Would Run Out Before You Got Money to Buy More?: Never True What is Your Housing Situation Today?: I Have Housing Are You Worried That in the Next 2 Months, You May Not Have Your Own Housing to Live In?: No Do You Have Trouble Paying Your Heating Or Electricity Bill?: No Do You Have Trouble Paying For Medicines?: No Are You Currently Unemployed and Looking for Work?: No Highest Level of Education Completed: Grade School Do You Have Trouble With Childcare or the Care of a Family Member?: No Exam - Vital Signs Vital Signs - 24 hr 12/19/22 14:00 12/19/22 16:00 12/19/22 22:23 Temperature 36.8 C 36.7 C Pulse Rate 80 72 78 Respiratory Rate 20 16 Blood Pressure 100/69 98/69 L Pulse Oximetry 100 99 Oxygen Delivery 12/19/22 20:00 12/19/22 20:00 12/20/22 00:00 Temperature Pulse Rate 80 76 Respiratory Rate Blood Pressure Pulse Oximetry Oxygen Delivery Room Air 12/20/22 04:00 12/20/22 05:48 12/20/22 09:08 Temperature 36.7 C Pulse Rate 72 73 80 Respiratory Rate 16 Blood Pressure 104/76 Pulse Oximetry 97 Oxygen Delivery 12/20/22 09:25 Temperature Pulse Rate Respiratory Rate Blood Pressure Pulse Oximetry Oxygen Delivery Room Air - Exam HEENT: EOMI, PERRLA, mucous membranes moist and pink Neck: supple. No: JVD Lungs: clear to auscultation, normal air movement Heart: no murmurs, gallops, or rubs, regular rhythm, regular rate Abdomen: abdomen soft, non-distended, normal bowel sounds Integumentary: no abnormalities Neurolo
[2022-12-20 13:42] LABS: Iron 14 ug/dL (49-181)
[2022-12-20 13:56] LABS: Percent Iron Saturation 5 % (20-50)
[2022-12-20 15:03] LABS: Folic Acid 12.2 ng/mL (2.76->20)
--- NOTE | 2022-12-20 15:10 | PM.DS ---
DS: Admitting Diagnosis Discharge Date 12/20/22 Admitting Diagnosis Weakness and SOB DS: Discharge Diagnosis Discharge Diagnosis (1) Atrial fibrillation with RVR: Code(s): I48.91 - Unspecified atrial fibrillation Status: Acute (2) Hyponatremia: Code(s): E87.1 - Hypo-osmolality and hyponatremia Status: Acute (3) Hypercalcemia: Code(s): E83.52 - Hypercalcemia Status: Acute (4) Postobstructive pneumonia: Code(s): J18.9 - Pneumonia, unspecified organism Status: Acute (5) Squamous cell carcinoma of right lung: Code(s): C34.91 - Malignant neoplasm of unspecified part of right bronchus or lung Status: Acute DS: Summary Hospital Course Reason for hospitalization: 67yo male with AFib and lung cancer yet to be treated here for weakness and SOB. Please see H&P for details. Hospital Course: Patient presented emergency room complaints of weakness and shortness of breath. He was found to be in atrial fibrillation with RVR and was given amiodarone bolus and converted to normal sinus rhythm. CT of the chest was negative for pulmonary embolism. It did show a large right hilar mass with occlusion of the right mainstem bronchus with worsening complete collapse of the right lung. There were other findings noted. Please see report for further details. Pulmonary was consulted but they did not feel anything more can be done and recommended patient starting chemotherapy as soon as possible. General surgery was consulted since patient's port needed to be cleared for use. General surgery accessed the port. The port was flushing normally without difficulty. [place] the port was okay to be used chemotherapy. Oncology saw the patient as well with plans to have patient be seen tomorrow to start chemotherapy. Patient overall did well. Remained in normal sinus rhythm. He was able to be discharged home on 12/20/2022. Status at Discharge Cognitive/behavioral status at discharge: stable Time Spent with Patient Time attestation: Total time spent providing and/or coordinating discharge services: 35 minutes Time spent: Greater than 30 minutes Exam Narrative: Gen - Thin male in NARD Chest - bronchial breath sounds heard throughout the right lung field. Normal respiratory rate CV - RRR S1/S2 Abd - Soft, NT/ND, Positive BS Ext - No pedal edema Psych - Nml mood and affect Skin - Warm and dry DS: Data Data Completed and Pending Labs on day of discharge: Labs from last 24 hours 12/20/22 12/20/22 12/20/22 05:48 05:48 05:48 WBC 8.0 RBC 4.06 L Hgb 9.0 L Hct 31.3 L MCV 77.1 L MCH 22.2 L MCHC 28.8 L RDW 17.6 H Plt Count 365 MPV 8.8 Immature Gran % (Auto) 0.2 Neut % (Auto) 60.0 Lymph % (Auto) 23.8 Vernon % (Auto) 13.0 H Eos % (Auto) 1.9 Baso % (Auto) 1.1 Lymph # (Auto) 1.91 Vernon # (Auto) 1.0 H Eos # (Auto) 0.2 Baso # (Auto) 0.1 Abs Immat Gran (auto) 0.02 Absolute Neuts (auto) 4.8 Absolute Nucleated RBC 0.0 Nucleated RBC % 0.0 Platelet Estimate Adequate Hypochromasia 2+ Anisocytosis 1+ Microcytosis 1+ Schistocytes None seen Sodium 132 L Potassium 4.0 Chloride 101 Carbon Dioxide 30 Anion Gap 1 L BUN 18 Creatinine 1.10 Estim Creat Clear Calc 42 Estimated GFR > 60 Glucose 92 Calcium 10.5 H Magnesium 2.0 Iron 14 L TIBC 255 L % Saturation Pending Ferritin 207.00 Total Bilirubin 0.2 AST 20 ALT 17 Alkaline Phosphatase 77 Total Protein 7.0 Albumin 2.9 L Vitamin B12 Folate 12/20/22 05:46 WBC RBC Hgb Hct MCV MCH MCHC RDW Plt Count MPV Immature Gran % (Auto) Neut % (Auto) Lymph % (Auto) Vernon % (Auto) Eos % (Auto) Baso % (Auto) Lymph # (Auto) Vernon # (Auto) Eos # (Auto) Baso # (Auto) Abs Immat Gran (auto) Absolute Neuts (auto) Absolute Nucleated RBC
[2022-12-20] MEDS: CENTRAL LINE FLUSH 10 ML IV PUSH (17:37)
[2022-12-20] MEDS: HEPARIN SODIUM LOCK FLUSH 500 UNITS/5 ML SYRINGE IV PUSH (17:37)
--- NOTE | 2022-12-21 09:49 | ED.WEAKNESS ---
HPI - Weakness General Chief complaint: Weakness Stated complaint: failure to thrive, stage 4 cancer Time Seen by Provider: 12/18/22 14:16 History of Present Illness HPI Narrative: Patient is a 67-year-old male with a history of recently diagnosed lung cancer presenting with chest pain and general malaise. Patient states that he was recently had a port placed so that he can start chemotherapy for his lung cancer. Patient states that unfortunately for the last day he has been increasingly weak and has worsening right-sided chest pain. States that he also feels short of breath which is what prompted him to come to the ER. He denies fevers or chills, headache, abdominal pain, vomiting, diarrhea, leg swelling. Related Data Home Medications Medication Instructions Recorded Confirmed doxycycline monohydrate 100 mg 100 mg PO BID 12/18/22 12/18/22 capsule Allergies Allergy/AdvReac Type Severity Reaction Status Date / Time No Known Allergies Allergy Verified 12/18/22 21:41 Review of Systems Review of Systems: All systems reviewed & are unremarkable except as noted in HPI and below PMFSH Past Medical History Medical History Cocaine abuse Clean since fall 2021. Nicotine dependence with current use Squamous cell carcinoma of right lung Surgical History Surgical History History of open reduction and internal fixation (ORIF) procedure Right hip pinning. Family History Family History Mother COPD (chronic obstructive pulmonary disease) Sibling Lung cancer Father Brain cancer Social History Social History Social History: Surrogate decision maker: Gilberto Garcia, grandson. Code status: Full code. Smoking packs per day: 0.2 Smoking cigarettes per day: 4.0 Years smoked: 25 Smoking pack-years: 5.00 Smoking status: Current every day smoker Tobacco type: cigarettes Additional smoking assessment comments: Down to 1 cigarette a day. Alcohol intake: former Drinks per week: 4 Substance use: current Substance use type: marijuana Last use: 12/13/2022 Lack of Transportation: No Lack of Food: Never True Current Housing: I Have Housing Concerned About Future Housing: No Difficulty Paying Gas/Electric Bills: No Difficulty Paying for Meds: No Currently Unemployed: No Education: Grade School Difficulty w/ Childcare or Family Care: No Living arrangements: with family Additional living arrangements comments: Patient lives in his own apartment. Grandson and his family are currently staying with him until they can get on her feet. Additional occupation/education comments: Next retired, on social security. Spiritual care concerns: No Exam Narrative: GENERAL: Frail-appearing elderly male, appears chronically ill HEAD: Normocephalic, atraumatic. EYES: PERRLA and EOMI. ENT: Nares clear, no rhinorrhea or epistaxis. Mucous membranes moist. NECK: Supple. CHEST: Diminished breath sounds on the right with crackles HEART: Regular rate and rhythm. No murmur heard. Normal peripheral pulses. ABDOMEN: Soft, nontender, nondistended, normal active bowel sounds. EXTREMITIES: Normal range of motion. No edema. SKIN: Warm, dry, no rash. NEURO: No focal deficits. Alert and oriented x3. PSYCH: Normal mood and affect. Course Vital Signs Vital signs: Vital Signs Temperature 98.4 F 12/18/22 13:54 Pulse Rate 98 12/18/22 13:54 Respiratory Rate 16 12/18/22 13:54 Blood Pressure 113/64 12/18/22 13:54 Pulse Oximetry 100 12/18/22 13:54 Oxygen Delivery Room Air 12/18/22 13:54 Temperature 98.3 F 12/20/22 14:20 Pulse Rate 77 12/20/22 16:00 Respiratory Rate 19 12/20/22 14:20 Blood Pressure 108/80 12/20/22 14:20 Pulse Oximetry 99
== END 2022-12-20 18:14 | disposition home or self-care (01) | DRG 194 ==
LOC: ANHED 15:20 → ANH3MEDSUR 19:42
PROVIDERS: Internal Medicine Hematology & Oncology; Physician Assistant; Admitting Provider Student in an Organized Health Care Education/Training Program; Emergency Provider Emergency Medicine; Visit Provider Internal Medicine
DX: J18.9 Pneumonia, unspecified organism (principal); C34.91 Malignant neoplasm of unspecified part of right bronchus or lung; E22.2 Syndrome of inappropriate secretion of antidiuretic hormone; Z68.1 Body mass index [BMI] 19.9 or less, adult; I48.91 Unspecified atrial fibrillation; R62.7 Adult failure to thrive; E83.52 Hypercalcemia; D64.9 Anemia, unspecified; Z20.822 Contact with and (suspected) exposure to COVID-19; F17.210 Nicotine dependence, cigarettes, uncomplicated
CPT/HCPCS: 36415; 71046; 71275; 72125; 80048; 80053; 82607; 82728; 82746; 83540; 83550; 83605; 83735; 84484; 85025; 85027; 85610; 85730; 87040; 87637; 93005; 96361; 96374; 96375; 99285; A9270; J0153; J0282; J1170; J1642; J1650; J2405; J7030; Q9967

== ENCOUNTER 2022-12-30 13:03 | Inpatient (IN) | payer MEDICARE, MEDICAID, SELFPAY ==
[2022-12-30] VITALS (18 sets, daily range): BP systolic 78–105; BP diastolic 53–82; PULSE 64–163; RESP 14–26; TEMP 36.4–36.8; O2SAT 98–100; BMI 17.3
--- NOTE | ~2022-12-30 | CT_ITS ---
EXAMINATION: CTA chest PE abdomen pel DATE: 12/30/2022 17:20 INDICATION: Shortness of breath. Low abdominal pain. TECHNIQUE: Computed tomography angiography (CTA) of the chest was performed with 100 mL Omnipaque-350 intravenous contrast timed to evaluate the pulmonary arteries. Coronal maximum intensity projection 3D-reconstructions were created by the technologist. Computed tomography (CT) of the abdomen and pelv is was performed with intravenous contrast. Automated exposure control and iterative reconstruction t echnique were employed. The dose-length product was 330.13 mGy-cm. COMPARISON: Chest CT 12/18/2022, PET/CT 11/15/22 FINDINGS: CTA chest: There is a large mass at the hilum of right lung with occlusion of right mainstem bronchus . There is complete collapse of right lung with volume loss. There are multiple nodules in left lung measuring up to 9 mm, consistent metastatic disease. There is a small right pleural effusion. The hea rt size is normal. The right hilar lung mass invades the atria of the heart. There is a mass in right atrial appendage with increased activity on 11/15/22. There are pericardial masses. No pericardial e ffusion. There are coronary artery calcifications. There is no pulmonary embolus. Mediastinal lymphad enopathy is noted. There is a right internal jugular port with tip in superior vena cava. There are o ld healed right rib fractures. CT abdomen and pelvis: There are approximately 5 masses in right hepatic lobe measuring up to 9 mm. T here is a gallstone in the gallbladder, which is normal in size. The spleen is normal. There is incom plete pancreas divisum. Right adrenal gland is normal. There are 2 masses in left adrenal gland measu ring up to 18 mm measuring soft tissue attenuation without increased activity on 11/15/22, likely darren nomas. The kidneys are normal. The prostate is mildly enlarged. The appendix is not visualized. There are no dilated loops of bowel. There are no pathologically enlarged lymph nodes. There is no free in traperitoneal fluid. There is 11 x 6 mm subcutaneous mass in left buttock. There is an old fracture o f right acetabulum with instrumentation. IMPRESSION: 1. No pulmonary embolus. 2. Large right hilar mass with occlusion of right mainstem bronchus and collapse of right lung, consi stent with primary bronchogenic carcinoma. 3. Small right pleural effusion. 4. Mediastinal lymphadenopathy, mass in right atrial appendage, pericardial masses, and left lung nod ules, consistent with metastatic disease. 5. Subcutaneous mass in left buttock, new from 11/15/22, which may be benign or metastatic disease. 6. Subcentimeter liver masses suspicious for metastatic disease. Reviewed, dictated and finalized at location A. CE SUPPORT ASSISTANT IMPRESSION: 1. No pulmonary embolus. 2. Large right hilar mass with occlusion of right mainstem bronchus and collaps e of right lung, consistent with primary bronchogenic carcinoma. 3. Small right pleural effusion. 4. Mediastinal lymphadenopathy, mass in right atrial appendage, pericardial mas ses, and left lung nodules, consistent with metastatic disease. 5. Subcutaneous mass in left buttock, new from 11/15/22, which may be benign or metastatic disease. 6. Subcentimeter liver masses suspicious for metastatic disease.
--- NOTE | 2022-12-30 15:40 | ECG_ITS ---
Measurements Intervals [place] Rate: 87 P: 50 PA: 150 QRS: -54 QRSD: 102 T: 86 QT: 298 QTc: 360 Interpretive Statements SINUS RHYTHM POSSIBLE LEFT ATRIAL ENLARGEMENT LEFT ANTERIOR FASCICULAR BLOCK BORDERLINE ST-T WAVE ABNORMALITY- ANTEROLAT/HIGH LAT LEADS ABNORMAL ECG COMPARED TO ECG 12/18/2022 16:18:49 LEFT ANTERIOR FASCICULAR BLOCK NOW PRESENT Electronically Signed On 12-30-2022 19:45:12 SEMICONDUCTOR DIES LOADER by Ezequiel Cali D.O.
--- NOTE | 2022-12-30 15:42 | ED.GENADULT ---
HPI - General Adult General Chief complaint: Weakness <KEL Flores Last Filed: 12/30/22 20:23> Stated complaint: weakness <KEL Flores Last Filed: 12/30/22 20:23> Time Seen by Provider: 12/30/22 14:54 <KEL Flores Last Filed: 12/30/22 20:23> Source: patient and old records reviewed <EKL Flores Last Filed: 12/30/22 20:23> Mode of arrival: EMS <KEL Flores Last Filed: 12/30/22 20:23> Limitations: no limitations <KEL Flores Filed: 12/30/22 20:23> History of Present Illness HPI narrative: Patient is a 67 y/o male who presents to the ED via EMS with c/o weakness and SOB. Patient has a history of stage IV metastatic non small cell lung cancer. Patient sees Dr. Norton. He started his first chemotherapy treatment 10 days ago. He states he felt well initially after the treatment, but over the last 1 week has had worsening shortness of breath with exertion, right-sided chest and upper back pain, lower abdominal pain, nausea, decreased appetite, generalized weakness and malaise, cough. Patient did report having 1 small episode of hemoptysis just prior to my evaluation. Per records, he has been admitted recently for similar symptoms, A. fib with RVR. He has previously converted with amiodarone. Patient denies fevers, vomiting, diarrhea, urinary issues. <KEL Flores Last Filed: 12/30/22 20:23> Related Data Home medications: Home Medications Medication Instructions Recorded Confirmed doxycycline monohydrate 100 mg 100 mg PO BID 12/18/22 12/30/22 capsule <KEL Flores Last Filed: 12/30/22 20:23> Allergies/adverse reactions: Allergies Allergy/AdvReac Type Severity Reaction Status Date / Time No Known Allergies Allergy Verified 12/30/22 14:53 <KEL Flores Last Filed: 12/30/22 20:23> Review of Systems Review of Systems: CONSTITUTIONAL: See HPI. CARDIOVASCULAR: See HPI. RESPIRATORY: See HPI. GASTROINTESTINAL: See HPI. GENITOURINARY: Denies dysuria or hematuria. SKIN: Denies rash or itching. MUSCULOSKELETAL: See HPI. <Joana Saab PA-C - Last Filed: 12/30/22 20:23> All systems reviewed & are unremarkable except as noted in HPI and below <Joana Saab PA-C - Last Filed: 12/30/22 20:23> [facility] Past Medical History Medical History: Medical History Cocaine abuse Clean since fall 2021. Nicotine dependence with current use Squamous cell carcinoma of right lung <Joana Saab PA-C - Last Filed: 12/30/22 20:23> Surgical History Surgical History: Surgical History History of open reduction and internal fixation (ORIF) procedure Right hip pinning. <Joana Saab PA-C - Last Filed: 12/30/22 20:23> Family History Family History: Family History Mother COPD (chronic obstructive pulmonary disease) Sibling Lung cancer Father Brain cancer <Joana Saab PA-C - Last Filed: 12/30/22 20:23> Social History Social History: Social History Social History: Surrogate decision maker: Gilberto Garcia, grandson. Code status: Full code. Smoking packs per day: 0.2 Smoking cigarettes per day: 4.0 Years smoked: 25 Smoking pack-years: 5.00 Smoking status: Former smoker Tobacco type: cigarettes Additional smoking assessment comments: Down to 1 cigarette a day. Alcohol intake: former Drinks per week: 4 Substance use: current Substance use type: marijuana and unknown Other substance usage details: friends pain pills unknown Last use: 12/13/2022 Lack of Transportation: No Lack of Food: Never True Yomaira
[2022-12-30] MEDS: SODIUM CHLORIDE 0.9% IV 1,000 ML 999 ML IV CONT ×2 (15:57→18:10)
[2022-12-30 16:32] LABS: Hemoglobin 10.4 g/dL (14.0-18.0); Mean Corpuscular HGB Conc 30.6 g/dl (32-36); Mean Corpuscular Volume 75.1 fl (80-100); Mean Platelet Volume 9.5 fl (7.4-10.4); Platelet Count Result 266 k/mm3 (150-375); Red Blood Count 4.53 M/mm3 (4.6-6.20)
[2022-12-30 16:41] LABS: INR 1.3; Prothrombin Time 16.1 Seconds (11.1-14.7)
[2022-12-30 16:42] LABS: Partial Thromboplastin Time 26.4 SECONDS (22.3-36.8)
[2022-12-30 16:47] LABS: Alanine Aminotransferase 21 U/L (6-50); Albumin Level 2.9 g/dL (3.5-5.1); Alkaline Phosphatase 98 U/L (38-126); Anion Gap 4 mmol/L (8-16); Aspartate Amino Transferase 18 U/L (17-59); Bilirubin,Total 0.9 mg/dL (0.2-1.3); Blood Urea Nitrogen 22 mg/dL (9-20); Carbon Dioxide 31 mmol/L (22-30); Chloride 96 mmol/L (98-107); Estimated CRCL calculation 46 ml/min; Estimated Glomerular Filt Rate > 60; Glucose 97 mg/dL (65-110); Potassium 4.5 mmol/L (3.4-5.0); Sodium 131 mmol/L (137-145)
[2022-12-30 16:56] LABS: White Blood Count 1.6 K/mm3 (4.5-10.0)
[2022-12-30 16:57] LABS: Eosinophils Absolute Manual 0.03 K/mm3 (0.02-0.5); Eosinophils Percent Manual 2 % (0-4); Neutrophils Percent Manual 9 % (46-73); Platelet Estimate Adequate (Adequate); Total Cells Counted 100
[2022-12-30 16:58] LABS: Anisocytosis 1+ (NORMAL); Atypical Lymphocytes Present; Ovalocytes 1+ (NORMAL); Schistocytes None Seen (NORMAL)
[2022-12-30 16:59] LABS: Lymphocytes Percent Manual 69 % (18-44); Monocytes Absolute Manual 0.32 K/mm3 (0.1-0.90); Monocytes Percent Manual 20 % (3-9); Troponin I < 0.012 ng/mL (0.000-0.034)
[2022-12-30 17:09] LABS: Influenza A QL RT-PCR Negative (Negative); Influenza B QL RT-PCR Negative (Negative); SARS-CoV-2 RNA PCR Negative
[2022-12-30] MEDS: AMIODARONE 150 MG/D5W 100 ML 150 MG/100 ML BAG 600 MG IV CONT (18:10)
[2022-12-30 18:54] LABS: Magnesium 2.2 mg/dL (1.6-2.3)
[2022-12-30] MEDS: AMIODARONE 360 MG/D5W 200 ML 360 MG/200 ML BAG 33.33 MG IV CONT (19:26)
[2022-12-30 19:27] LABS: Troponin I < 0.012 ng/mL (0.000-0.034)
--- NOTE | 2022-12-30 19:49 | PC.NURSE ---
Patient care report called to SADIE Guzman. All questions answered at this time.
--- NOTE | 2022-12-30 20:03 | ADMGEN ---
This patient, Alonso Camara, was admitted to IMU Room 204-01 at 2002. Patient/family oriented to hospital policies and general routines including ID bracelet, bed and alarms, visiting hours, pain management, procedures, bathroom and other care routines, personal items, smoking policy, room service/diet, and visiting hours. Information on how to activate the Rapid Response Team has been discussed. Patient/Family are encouraged to report perceived risks to care and to ask questions if they do not understand what they are told or what they should do.
[2022-12-30] MEDS: levoFLOXacin 500 MG/D5W 100 ML 500 MG/100 ML BAG 100 MG IVPB (20:49)
--- NOTE | 2022-12-30 22:22 | ECG_ITS ---
Measurements Intervals [place] Rate: 147 P: AL: 0 QRS: -60 QRSD: 114 T: 95 QT: 314 QTc: 491 Interpretive Statements ATRIAL FIBRILLATION WITH RAPID VENTRICULAR RESPONSE LEFT ANTERIOR FASCICULAR BLOCK BORDERLINE ST-T WAVE ABNORMALITY- HIGH LATERAL LEADS ABNORMAL ECG COMPARED TO ECG 12/30/2022 16:28:39 ATRIAL FIBRILLATION NOW PRESENT Electronically Signed On 12-31-2022 6:33:26 MENTAL HEALTH COUNSELOR by Ezequiel Cali D.O.
[2022-12-30 22:48] LABS: Appearance Urine Clear (Clear); Bilirubin Urine Negative (Negative); Blood Urine Trace-intact (Negative); Color Urine Yellow (Yellow); Glucose Urine UA Negative (Negative); Ketones Urine Negative (Negative); Leukocyte Esterase Ur Negative LEU/UL (Negative); Nitrate Urine Negative (Negative); Protein Urine Negative (Negative); Urobilinogen Urine 0.2 mg/dL (<2.0); pH Urine 5.5 (5.0-9.0)
[2022-12-30] MEDS: SODIUM CHLORIDE 0.9% IV 250 ML 100 ML IV CONT (22:53)
--- NOTE | 2022-12-30 22:56 | PC.NURSE ---
patient c/o dizzy when he stood to urinate. patient blood pressure was taken and it was in the 70's systolic. patient had converted to sr from afib with rvr. ekg done to confirm. amiodorone stopped , dr ann is aware and fluids were ordered.
[2022-12-30 22:59] LABS: Mucus Urine Rare /lpf; RBC Urine 0-2 /hpf (0-2); WBC Urine 0-3 /hpf
--- NOTE | 2022-12-30 23:16 | ECG_ITS ---
Measurements Intervals [place] Rate: 62 P: 56 MN: 146 QRS: -51 QRSD: 105 T: 51 QT: 402 QTc: 411 Interpretive Statements SINUS RHYTHM LEFT ANTERIOR FASCICULAR BLOCK NONSPECIFIC T-WAVE ABNORMALITY- - ANT/HIGH LAT LEADS BORDERLINE ECG COMPARED TO ECG 12/30/2022 17:56:17 SINUS RHYTHM NOW PRESENT Electronically Signed On 12-31-2022 6:36:03 MEDICAL MALPRACTICE PARALEGAL by Ezequiel Cali D.O.
[2022-12-30 23:17] LABS: Add Urine Microscopic? YES
[2022-12-31] VITALS (14 sets, daily range): BP systolic 83–98; BP diastolic 57–67; PULSE 63–88; RESP 14–18; TEMP 36.2–37.1; O2SAT 100; BMI 17.3
--- NOTE | 2022-12-31 00:08 | PM.IMHP ---
H&P: HPI History of Present Illness Date/Time: 12/30/22 18:30 Chief Complaint: Weakness. 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 He is known to the hospitalist service from 2 recent admissions for atrial fibrillation with rapid ventricular response and postobstructive pneumonia. Since that time he received his 1st chemotherapy infusion and he did well for the 1st few days however over the past week he has been feeling increasingly weak with essentially no appetite, ongoing nausea, and significant fatigue. He has a chronic cough which is mainly productive of clear mucus but today he reports coughing up a small amount of bright red blood. He has also been increasingly short of breath and he gets winded and extremely weak even walking 10 steps. He denies fall, syncope, fever, chills, sweats, chest pain, pleuritic pain, racing heart, palpitations, vomiting, and diarrhea. He was hypotensive and tachycardic on arrival to ED. He was found to be in AFib/RVR and he has been started on amiodarone infusion. Again he has no symptoms of racing heart or palpitations. Blood pressures have been soft but are improving with IV fluids. Labs were significant for WBC of 1.6, hemoglobin 10.4, sodium 131, BUN 22, calcium 11. CT of the chest, abdomen, and pelvis showed no evidence of PE. Once again a large right hilar mass with occlusion of the right mainstem bronchus and class with right lung is noted with mediastinal lymphadenopathy, pericardial masses, left lung nodules, and mass in the right atrial appendage consistent with metastatic disease. A subcutaneous mass in the left buttocks was also noted which is new from 11/15/2022 and subcentimeter liver masses suspicious for metastatic disease. ED provider spoke with Dr. Norton who requests that the patient be given a dose of Neupogen and he requests that he be started on levofloxacin. Review of Systems Review of Systems: Twelve systems were reviewed and are negative except for as per HPI. [facility] Past Medical History Medical History Cocaine abuse Clean since fall 2021. Nicotine dependence with current use Squamous cell carcinoma of right lung Surgical History Surgical History History of open reduction and internal fixation (ORIF) procedure Right hip pinning. Family History Family History Mother COPD (chronic obstructive pulmonary disease) Sibling Lung cancer Father Brain cancer Social History Social History Social History: Surrogate decision maker: grand Luis Miguelson. Code status: Full code. Smoking packs per day: 0.2 Smoking cigarettes per day: 4.0 Years smoked: 25 Smoking pack-years: 5.00 Smoking status: Former smoker Tobacco type: cigarettes Additional smoking assessment comments: Down to 1 cigarette a day. Alcohol intake: former Drinks per week: 4 Substance use: current Substance use type: marijuana and unknown Other substance usage details: friends pain pills unknown Last use: 12/13/2022 Lack of Transportation: No Lack of Food: Never True Current Housing: I Have Housing Concerned About Future Housing: No Difficulty Paying Gas/Electric Bills: No Difficulty Paying for Meds: No Currently Unemployed: No Education: Grade School Difficulty w/ Childcare or Family Care: No Living arrangements: with family Additional living arrangements comments: Patient lives in his own apartment. Grandson and his family are currently staying with him until they can get on her feet. Additional occupation/education comments: Next retired, on social security.
[2022-12-31] MEDS: SODIUM CHLORIDE 0.9% IV 1,000 ML 75 ML IV CONT ×2 (01:02→13:23)
[2022-12-31 05:12] LABS: Basophils Percent Auto 1.5 % (0.2-1.2); Eosinophils Absolute Auto 0.1 K/mm3 (0-0.3); Eosinophils Percent Auto 3.1 % (0-4.4); Hematocrit 25.8 % (42.0-52.0); Hemoglobin 7.8 g/dL (14.0-18.0); Immature Granulocyte Absolute 0.01 K/mm3 (0.00-0.031); Immature Granulocyte Percent A 0.5 % (0-0.5); Lymphocytes Absolute Auto 1.11 K/mm3 (0.9-3.2); Lymphocytes Percent Auto 56.6 % (18.3-44.2); Mean Corpuscular HGB Conc 30.2 g/dl (32-36); Mean Corpuscular Hemoglobin 22.5 pg (26-34); Mean Corpuscular Volume 74.4 fl (80-100); Monocytes Absolute Auto 0.7 K/mm3 (0.1-0.6); Monocytes Percent Auto 36.2 % (2.6-8.5); Neutrophils Percent Auto 2.1 % (45.5-73.1); Platelet Count Result 228 k/mm3 (150-375); Red Blood Count 3.47 M/mm3 (4.6-6.20); Red Cell Distribution Width 17.7 % (11.5-14.5)
[2022-12-31 05:25] LABS: Anion Gap 1 mmol/L (8-16); Blood Urea Nitrogen 17 mg/dL (9-20); Calcium 9.7 mg/dL (8.4-10.2); Carbon Dioxide 28 mmol/L (22-30); Chloride 100 mmol/L (98-107); Estimated CRCL calculation 57 ml/min; Estimated Glomerular Filt Rate > 60; Glucose 80 mg/dL (65-110); Magnesium 1.8 mg/dL (1.6-2.3); Potassium 3.6 mmol/L (3.4-5.0); Sodium 129 mmol/L (137-145)
[2022-12-31 05:37] LABS: Atypical Lymphocytes Present; Hypochromasia 1+ (NORMAL); Platelet Estimate Adequate (Adequate)
[2022-12-31 05:38] LABS: Schistocytes None Seen (NORMAL)
[2022-12-31] MEDS: FILGRASTIM-SNDZ 480 MCG/0.8 ML SYRINGE SUB-Q (09:00)
[2022-12-31] MEDS: AMIODARONE HCL 200 MG TABLET PO (09:01)
[2022-12-31] MEDS: FERROUS SULFATE 324 MG TABLET PO ×2 (09:01→16:40)
[2022-12-31] MEDS: CYANOCOBALAMIN 1,000 MCG TABLET 1000 MCG PO (09:01)
[2022-12-31] MEDS: SALIVA SUBSTITUTE COMBO RINSE 237 ML BOTTLE 15 ML PO (12:07)
--- NOTE | 2022-12-31 14:00 | PM.IMPN ---
Progress Note: A&P Assessment and Plan (1) Atrial fibrillation with rapid ventricular response: Code(s): I48.91 - Unspecified atrial fibrillation Status: Acute (2) Metastatic non-small cell lung cancer: Code(s): C34.90 - Malignant neoplasm of unspecified part of unspecified bronchus or lung Status: Acute (3) Dehydration: Code(s): E86.0 - Dehydration Status: Acute (4) Hypotension: Code(s): I95.9 - Hypotension, unspecified Status: Acute Plan The patient presented to the emergency department from home for evaluation of weakness since his initial chemotherapy treatment approximately 10 days ago. Labs, imaging, EKG, and reports were personally reviewed. He was found to be in AFib/RVR and has been started on an amiodarone drip. He is on amiodarone at home and states compliance with this drug. I assume he continues to have recurrent episodes of the same due to his large lung mass with compression of the bronchus and findings of pericardial and right atrial appendage masses suspicious for metastatic disease. He is not on anticoagulation given a CHADS2 Vasc score of 1. He is dry on exam and by history and is being judiciously hydrated overnight. He has several, mild electrolyte abnormalities including mild hyponatremia and mild hypercalcemia which should improve with IV fluids. His calcium is always a bit high however and may be related to his malignancy. Hypotension is improving with IV fluids. No significant evidence to suggest acute infection though with his neutropenia Dr. Norton requested he be given a dose of levofloxacin which I will defer to him whether not to continue. 12/31/2022 interval history: patient with a invasive is squamous cell carcinoma of right lung presented with complaint of weakness and tired, patient also found to have leukopenia he was given Neupogen by his oncologist. patient states he is in constant pain, poor appetite and unable to sleep, discussed with the patient for possible comfort care hospice is not ready for that, also patient is a full code and he is chronically ill, he was to continue to be full code, will continue present management, will have a PT OT evaluate the patient and further recommendation to follow. Subjective Date/time seen: 12/31/22 14:00 Weakness. 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 He is known to the hospitalist service from 2 recent admissions for atrial fibrillation with rapid ventricular response and postobstructive pneumonia. Since that time he received his 1st chemotherapy infusion and he did well for the 1st few days however over the past week he has been feeling increasingly weak with essentially no appetite, ongoing nausea, and significant fatigue. He has a chronic cough which is mainly productive of clear mucus but today he reports coughing up a small amount of bright red blood.? He has also been increasingly short of breath and he gets winded and extremely weak even walking 10 steps. He denies fall, syncope, fever, chills, sweats, chest pain, pleuritic pain, racing heart, palpitations, vomiting, and diarrhea. He was hypotensive and tachycardic on arrival to ED. He was found to be in AFib/RVR? and he has been started on amiodarone infusion. Again he has no symptoms of racing heart or palpitations. Blood pressures have been soft but are improving with IV fluids. Labs were significant for WBC of 1.6, hemoglobin 10.4, sodium 131, BUN 22, calcium 11. CT of the chest, abdomen, and pelvis showed no evidence of PE. Once again a large right hilar mass with occlusion of the right mainstem bronchus and class with right lung is noted with mediastinal lymphadenopathy, pericardial masses, left lung nodules, and mass in the right atrial appendage consistent with metastatic disease. A subcutane
[2022-12-31] MEDS: ENOXAPARIN 40 MG/0.4 ML SYRINGE SUB-Q (21:32)
--- NOTE | 2022-12-31 21:50 | PC.NURSE ---
recieved from IMU per wheel chair.
[2023-01-01] VITALS (11 sets, daily range): BP systolic 86–106; BP diastolic 67–72; PULSE 76–100; RESP 16–22; TEMP 36.6–37.4; O2SAT 99–100
[2023-01-01] MEDS: HYDROcodone/acetaminophen (*CRX) 5-325 MG TABLET 1 TAB PO (02:47)
[2023-01-01] MEDS: SODIUM CHLORIDE 0.9% IV 1,000 ML 75 ML IV CONT ×2 (04:34→16:50)
[2023-01-01 06:29] LABS: Basophils Percent Auto 1.5 % (0.2-1.2); Eosinophils Absolute Auto 0.1 K/mm3 (0-0.3); Eosinophils Percent Auto 5.2 % (0-4.4); Hematocrit 27.3 % (42.0-52.0); Hemoglobin 8.1 g/dL (14.0-18.0); Immature Granulocyte Absolute 0.02 K/mm3 (0.00-0.031); Lymphocytes Percent Auto 51.5 % (18.3-44.2); Mean Corpuscular HGB Conc 29.7 g/dl (32-36); Mean Corpuscular Hemoglobin 22.7 pg (26-34); Mean Corpuscular Volume 76.5 fl (80-100); Monocytes Absolute Auto 0.7 K/mm3 (0.1-0.6); Monocytes Percent Auto 37.1 % (2.6-8.5); Neutrophils Absolute Auto 0.1 K/mm3 (1.3-6.7); Neutrophils Percent Auto 3.7 % (45.5-73.1); Platelet Count Result 191 k/mm3 (150-375); Red Blood Count 3.57 M/mm3 (4.6-6.20); Red Cell Distribution Width 18.3 % (11.5-14.5)
[2023-01-01 06:52] LABS: Alanine Aminotransferase 23 U/L (6-50); Albumin Level 2.6 g/dL (3.5-5.1); Alkaline Phosphatase 83 U/L (38-126); Anion Gap 1 mmol/L (8-16); Aspartate Amino Transferase 20 U/L (17-59); Bilirubin,Total 0.4 mg/dL (0.2-1.3); Blood Urea Nitrogen 11 mg/dL (9-20); Carbon Dioxide 27 mmol/L (22-30); Chloride 100 mmol/L (98-107); Estimated CRCL calculation 60 ml/min; Estimated Glomerular Filt Rate > 60; Glucose 87 mg/dL (65-110); Magnesium 1.7 mg/dL (1.6-2.3); Potassium 3.5 mmol/L (3.4-5.0); Sodium 128 mmol/L (137-145)
[2023-01-01 07:13] LABS: White Blood Count 1.9 K/mm3 (4.5-10.0)
[2023-01-01 07:17] LABS: Hypochromasia 1+ (NORMAL); Platelet Estimate Adequate (Adequate)
[2023-01-01 07:19] LABS: Burr Cells 1+ (NORMAL); Ovalocytes 1+ (NORMAL); Schistocytes None Seen (NORMAL)
--- NOTE | 2023-01-01 09:07 | ECG_ITS ---
Measurements Intervals [place] Rate: 82 P: 43 IN: 150 QRS: -42 QRSD: 102 T: 62 QT: 317 QTc: 371 Interpretive Statements SINUS RHYTHM LEFT AXIS DEVIATION NONSPECIFIC T-WAVE ABNORMALITY- HIGH LATERAL LEADS BASELINE WANDER- II, III, AVF BORDERLINE ECG COMPARED TO ECG 12/30/2022 23:22:48 NO SIGNIFICANT CHANGES Electronically Signed On 01-01-2023 9:24:34 [facility]CAFFOLDER by Ezequiel Cali D.O.
[2023-01-01] MEDS: FILGRASTIM-SNDZ 480 MCG/0.8 ML SYRINGE SUB-Q (09:23)
[2023-01-01] MEDS: FERROUS SULFATE 324 MG TABLET PO ×2 (09:23→16:49)
[2023-01-01] MEDS: CYANOCOBALAMIN 1,000 MCG TABLET 1000 MCG PO (09:23)
[2023-01-01] MEDS: AMIODARONE HCL 200 MG TABLET PO (09:23)
[2023-01-01] MEDS: ENOXAPARIN 60 MG/0.6 ML SYRINGE 55 MG SUB-Q ×2 (11:13→20:57)
--- NOTE | 2023-01-01 14:02 | PM.IMPN ---
Progress Note: A&P Assessment and Plan (1) Atrial fibrillation with rapid ventricular response: Code(s): I48.91 - Unspecified atrial fibrillation Status: Acute (2) Metastatic non-small cell lung cancer: Code(s): C34.90 - Malignant neoplasm of unspecified part of unspecified bronchus or lung Status: Acute (3) Dehydration: Code(s): E86.0 - Dehydration Status: Acute (4) Hypotension: Code(s): I95.9 - Hypotension, unspecified Status: Acute Plan The patient presented to the emergency department from home for evaluation of weakness since his initial chemotherapy treatment approximately 10 days ago. Labs, imaging, EKG, and reports were personally reviewed. He was found to be in AFib/RVR and has been started on an amiodarone drip. He is on amiodarone at home and states compliance with this drug. I assume he continues to have recurrent episodes of the same due to his large lung mass with compression of the bronchus and findings of pericardial and right atrial appendage masses suspicious for metastatic disease. He is not on anticoagulation given a CHADS2 Vasc score of 1. He is dry on exam and by history and is being judiciously hydrated overnight. He has several, mild electrolyte abnormalities including mild hyponatremia and mild hypercalcemia which should improve with IV fluids. His calcium is always a bit high however and may be related to his malignancy. Hypotension is improving with IV fluids. No significant evidence to suggest acute infection though with his neutropenia Dr. Norton requested he be given a dose of levofloxacin which I will defer to him whether not to continue. 01/01/2023 interval history: patient with a invasive is squamous cell carcinoma of right lung presented with complaint of weakness and tired, patient also found to have leukopenia he is been treated with Neupogen by his oncologist. upon arrival his white counts were 1.6 and today 1.9, will CPM, patient states he is in constant pain, poor appetite and unable to sleep, discussed with the patient for possible comfort care hospice,he is not ready for that, also patient is a full code and he is chronically ill, he wants to continue to be full code, will continue present management, will have a PT OT evaluate the patient and further recommendation to follow. Subjective Date/time seen: 01/01/23 14:02 01/01/2023 interval history: patient with a invasive is squamous cell carcinoma of right lung presented with complaint of weakness and tired, patient also found to have leukopenia he is been treated with Neupogen by his oncologist. upon arrival his white counts were 1.6 and today 1.9, will CPM, patient states he is in constant pain, poor appetite and unable to sleep, discussed with the patient for possible comfort care hospice,he is not ready for that, also patient is a full code and he is chronically ill, he wants to continue to be full code, will continue present management, will have a PT OT evaluate the patient and further recommendation to follow. Exam Narrative: patient appears chronically and malnourished Patient is comfortable, NAD HEENT: eyes are clear and none icteric LUNGS: normal respiratory effort ABD: not distended Lower extremities: no edema SKIN: nonjaundiced Neuro: grossly intact. Objective Data Vital Signs Vital Signs: Vital Signs - 24 hr 12/31/22 16:00 12/31/22 16:00 12/31/22 18:00 Temperature 98.8 F Pulse Rate 77 74 81 Respiratory Rate 16 Blood Pressure 91/60 L Pulse Oximetry 100 Oxygen Delivery 12/31/22 20:00 12/31/22 20:00 12/31/22 20:00 Temperature 98.8 F Pulse Rate 85 81 81 Respiratory Rate 16 16 Blood Pressure 91/60 L Pulse Oximetry 100 100 Oxygen Delivery Room Air 12/31/22 23:59 01/01/23 06:50 01/01/23 08:00 Temperature 97.2 F L 98.3 F 98.1 F Pulse Rate 81 76 77 Respiratory Rate 16 16 16 Blood Pressure 98/65 L 94/69 L 86/67 L Pulse Oximetry 100
[2023-01-01] MEDS: MELATONIN 3 MG TABLET PO (22:05)
[2023-01-02] VITALS (15 sets, daily range): BP systolic 100–123; BP diastolic 50–76; PULSE 65–98; RESP 18–20; TEMP 36.2–37.3; O2SAT 91–100
[2023-01-02] MEDS: SODIUM CHLORIDE 0.9% IV 1,000 ML 75 ML IV CONT ×2 (06:15→22:52)
[2023-01-02 06:27] LABS: Hematocrit 26.6 % (42.0-52.0); Mean Corpuscular HGB Conc 30.1 g/dl (32-36); Mean Corpuscular Hemoglobin 23.1 pg (26-34); Mean Corpuscular Volume 76.9 fl (80-100); Mean Platelet Volume 9.6 fl (7.4-10.4); Platelet Count Result 210 k/mm3 (150-375); Red Blood Count 3.46 M/mm3 (4.6-6.20); Red Cell Distribution Width 18.6 % (11.5-14.5); White Blood Count 5.2 K/mm3 (4.5-10.0)
[2023-01-02 06:33] LABS: Alanine Aminotransferase 26 U/L (6-50); Albumin Level 2.3 g/dL (3.5-5.1); Alkaline Phosphatase 84 U/L (38-126); Anion Gap 2 mmol/L (8-16); Aspartate Amino Transferase 21 U/L (17-59); Bilirubin,Total 0.3 mg/dL (0.2-1.3); Blood Urea Nitrogen 9 mg/dL (9-20); Calcium 8.2 mg/dL (8.4-10.2); Carbon Dioxide 26 mmol/L (22-30); Chloride 103 mmol/L (98-107); Estimated CRCL calculation 78 ml/min; Estimated Glomerular Filt Rate > 60; Glucose 82 mg/dL (65-110); Magnesium 1.5 mg/dL (1.6-2.3); Potassium 3.3 mmol/L (3.4-5.0); Sodium 131 mmol/L (137-145)
[2023-01-02 07:07] LABS: Band Neutrophils Percent 10 % (0-6); Basophils Percent Manual 2 % (0-1); Eosinophils Percent Manual 4 % (0-4); Lymphocytes Absolute Manual 1.24 K/mm3 (1.1-4.5); Metamyelocytes Percent 2 %; Monocytes Absolute Manual 0.57 K/mm3 (0.1-0.90); Monocytes Percent Manual 11 % (3-9); Neutrophils Absolute Manual 2.96 K/mm3 (1.3-6.7); Neutrophils Percent Manual 47 % (46-73); Total Cells Counted 100
[2023-01-02 07:08] LABS: Platelet Estimate Adequate (Adequate)
[2023-01-02 07:09] LABS: Hypochromasia 1+ (NORMAL); Microcytosis 2+ (NORMAL); Schistocytes None Seen (NORMAL)
[2023-01-02] MEDS: FILGRASTIM-SNDZ 480 MCG/0.8 ML SYRINGE SUB-Q (09:55)
[2023-01-02] MEDS: ENOXAPARIN 60 MG/0.6 ML SYRINGE 55 MG SUB-Q ×2 (09:55→21:06)
[2023-01-02] MEDS: AMIODARONE HCL 200 MG TABLET PO (09:55)
[2023-01-02] MEDS: CYANOCOBALAMIN 1,000 MCG TABLET 1000 MCG PO (09:55)
[2023-01-02] MEDS: FERROUS SULFATE 324 MG TABLET PO ×2 (09:55→16:38)
--- NOTE | 2023-01-02 12:51 | PDONCCN ---
[facility] - Date of Consult Date/Time: 01/02/23 12:51 Requesting Physician: Baldo Nathan MD Primary Care Provider: HOSPITALIST [facility]CT[facility]IST PHYSICIAN PHYSICIAN - Consult Narrative Reason for consult: Lung cancer Narrative: Alonso Camara is a 67 year old male with history of non-small cell lung cancer currently on chemotherapy with carboplatin Taxol and Keytruda received 1st treatment on December 21, 2022. He came into the hospital with tiredness and fatigue with few days of nausea. He was feeling quite lethargic. On arrival to the ER he was hypotensive and tachycardic. He was found to be in atrial fibrillation with rapid ventricular rate and started on amiodarone. His labs showed leukopenia with WBC count of 1.6 and hemoglobin of 10.4. CT scan of chest abdomen pelvis showed no evidence of pulmonary embolism. He was started on Neupogen. WBC count has improved to 5200 but patient remains quite significantly anemic with hemoglobin of 8.0. Review of Systems - Review of Systems All systems reviewed & are unremarkable except as noted in [facility] Medical History: Medical History (Last Reviewed 12/31/22 @ 00:16 by Niki Conti PA-C) Cocaine abuse Clean since fall 2021. Nicotine dependence with current use Squamous cell carcinoma of right lung Surgical History: Surgical History (Last Reviewed 12/31/22 @ 00:16 by Niki Conti PA-C) History of open reduction and internal fixation (ORIF) procedure Right hip pinning. Family History: Family History (Last Reviewed 12/31/22 @ 00:16 by Niki Conti PA-C) Mother COPD (chronic obstructive pulmonary disease) Sibling Lung cancer Father Brain cancer - Social History Social History: Social History (Last Reviewed 12/31/22 @ 00:16 by Niki Conti PA-C) Alcohol Use: Alcohol intake: former Drinks per week: 4 Substance Use: Substance use: current Substance use type: marijuana Substance use type: unknown Other substance usage details: friends pain pills unknown Last use: 12/13/2022 Others: Spiritual care concerns: No Living Arrangements: Living arrangements: with family Smoking Status: Smoking status: Former smoker Tobacco type: cigarettes Smoking Pack-years: Smoking packs per day: 0.2 Smoking cigarettes per day: 4.0 Years smoked: 25 Smoking pack-years: 50.00 Comments: Additional smoking assessment comments: Down to 1 cigarette a day. Social Determinants of Health: Has the Lack of Transportation Kept You From Medical Appointments or From Getting Medications?: No Within the Past 12 Months, Were You Worried Whether Your Food Would Run Out Before You Got Money to Buy More?: Never True What is Your Housing Situation Today?: I Have Housing Are You Worried That in the Next 2 Months, You May Not Have Your Own Housing to Live In?: No Do You Have Trouble Paying Your Heating Or Electricity Bill?: No Do You Have Trouble Paying For Medicines?: No Are You Currently Unemployed and Looking for Work?: No Highest Level of Education Completed: Grade School Do You Have Trouble With Childcare or the Care of a Family Member?: No Exam - Vital Signs Vital Signs - 24 hr 01/01/23 13:54 01/01/23 16:00 01/01/23 22:00 Temperature 36.6 C 37.4 C Pulse Rate 81 80 80 Respiratory Rate 16 22 H Blood Pressure 98/71 L 94/69 L Pulse Oximetry 100 100 Oxygen Delivery 01/01/23 22:05 01/01/23 22:10 01/01/23 20:00 Temperature Pulse Rate 84 80 80 Respiratory Rate 22 H Blood Pressure 99/69 L 106/72 Pulse Oximetry 100 100 100 Oxygen Delivery Room Air 01/01/23 20:00 01/02/23 00:00 01/02/23 04:00 Temperature Pulse Rate 100 76 73 Respiratory Rate Blood Pressure Pulse Oximetry Oxygen Delivery 01/02/23 06:00 01/02/23 08:00 01/02/23 08:00 Temperature 37.3 C Pulse Rate 78 74 Respiratory Rate 20 18 Blood Pres
[2023-01-02] MEDS: IRON SUCROSE COMPLEX 500 MG in SODIUM CHLORIDE 0.9% IV 250 ML 78.57 MG IVPB (13:39)
--- NOTE | 2023-01-02 15:28 | PM.IMPN ---
Progress Note: A&P Assessment and Plan (1) Atrial fibrillation with rapid ventricular response: Code(s): I48.91 - Unspecified atrial fibrillation Status: Acute (2) Metastatic non-small cell lung cancer: Code(s): C34.90 - Malignant neoplasm of unspecified part of unspecified bronchus or lung Status: Acute (3) Dehydration: Code(s): E86.0 - Dehydration Status: Acute (4) Hypotension: Code(s): I95.9 - Hypotension, unspecified Status: Acute Plan The patient presented to the emergency department from home for evaluation of weakness since his initial chemotherapy treatment approximately 10 days ago. Labs, imaging, EKG, and reports were personally reviewed. He was found to be in AFib/RVR and has been started on an amiodarone drip. He is on amiodarone at home and states compliance with this drug. I assume he continues to have recurrent episodes of the same due to his large lung mass with compression of the bronchus and findings of pericardial and right atrial appendage masses suspicious for metastatic disease. He is not on anticoagulation given a CHADS2 Vasc score of 1. He is dry on exam and by history and is being judiciously hydrated overnight. He has several, mild electrolyte abnormalities including mild hyponatremia and mild hypercalcemia which should improve with IV fluids. His calcium is always a bit high however and may be related to his malignancy. Hypotension is improving with IV fluids. No significant evidence to suggest acute infection though with his neutropenia Dr. Norton requested he be given a dose of levofloxacin which I will defer to him whether not to continue. 01/02/2023 interval history: patient with a invasive is squamous cell carcinoma of right lung presented with complaint of weakness and tired, patient also found to have leukopenia he is been treated with Neupogen by his oncologist. upon arrival his white counts were 1.6 and today it is 5.2, will CPM, patient states he is in constant pain, poor appetite and unable to sleep, discussed with the patient for possible comfort care hospice,he is not ready for that, also patient is a full code and he is chronically ill, he wants to continue to be full code, will continue present management, upon arrival patient had AFib with RVR now patient has sinus was concerning for proximal atrial fibrillation, will continue to coagulate patient, will have a PT OT evaluate the patient and further recommendation to follow. Subjective Date/time seen: 01/02/23 15:28 01/02/2023 interval history: patient with a invasive is squamous cell carcinoma of right lung presented with complaint of weakness and tired, patient also found to have leukopenia he is been treated with Neupogen by his oncologist. upon arrival his white counts were 1.6 and today it is 5.2, will CPM, patient states he is in constant pain, poor appetite and unable to sleep, discussed with the patient for possible comfort care hospice,he is not ready for that, also patient is a full code and he is chronically ill, he wants to continue to be full code, will continue present management, upon arrival patient had AFib with RVR now patient has sinus was concerning for proximal atrial fibrillation, will continue to coagulate patient, will have a PT OT evaluate the patient and further recommendation to follow. Exam Narrative: patient appears chronically and malnourished Patient is comfortable, NAD HEENT: eyes are clear and none icteric LUNGS: normal respiratory effort ABD: not distended Lower extremities: no edema SKIN: nonjaundiced Neuro: grossly intact. Objective Data Vital Signs Vital Signs: Vital Signs - 24 hr 01/01/23 16:00 01/01/23 22:00 01/01/23 22:05 Temperature 99.3 F Pulse Rate 80 80 84 Respiratory Rate 22 H Blood Pressure 94/69 L 99/69 L Pulse Oximetry 100 100 Oxygen Delivery 01/01/23 22:10 01/01/23 20:00 01/01/23 20:00 Temperature Pu
[2023-01-02] MEDS: ALBUTEROL SULFATE NEB 2.5 MG/3 ML INH INHALATION (16:42)
[2023-01-02] MEDS: IPRATROPIUM BR 0.02% INH SOLN 0.5 MG/2.5 ML VIAL INHALATION (16:42)
[2023-01-02] MEDS: ACETAMINOPHEN 325 MG TABLET 650 MG PO (17:43)
[2023-01-02] MEDS: CARBAMIDE PEROXIDE 6.5% OT SOLN 15 ML BTL 5 DROP EACH EAR (21:06)
[2023-01-03] VITALS (10 sets, daily range): BP systolic 111–120; BP diastolic 70–79; PULSE 79–95; RESP 14–99; TEMP 36.3–36.6; O2SAT 14–100
[2023-01-03 06:07] LABS: Hemoglobin 8.2 g/dL (14.0-18.0); Mean Corpuscular HGB Conc 30.4 g/dl (32-36); Mean Corpuscular Hemoglobin 23.2 pg (26-34); Mean Corpuscular Volume 76.5 fl (80-100); Mean Platelet Volume 9.2 fl (7.4-10.4); Platelet Count Result 264 k/mm3 (150-375); Red Blood Count 3.53 M/mm3 (4.6-6.20); Red Cell Distribution Width 18.6 % (11.5-14.5); White Blood Count 21.6 K/mm3 (4.5-10.0)
[2023-01-03 06:28] LABS: Alanine Aminotransferase 28 U/L (6-50); Albumin Level 2.4 g/dL (3.5-5.1); Alkaline Phosphatase 92 U/L (38-126); Anion Gap 6 mmol/L (8-16); Aspartate Amino Transferase 30 U/L (17-59); Bilirubin,Total 0.3 mg/dL (0.2-1.3); Blood Urea Nitrogen 7 mg/dL (9-20); Calcium 7.7 mg/dL (8.4-10.2); Carbon Dioxide 24 mmol/L (22-30); Chloride 104 mmol/L (98-107); Estimated CRCL calculation 70 ml/min; Estimated Glomerular Filt Rate > 60; Glucose 123 mg/dL (65-110); Magnesium 1.6 mg/dL (1.6-2.3); Potassium 3.1 mmol/L (3.4-5.0); Sodium 134 mmol/L (137-145)
[2023-01-03 06:47] LABS: Anisocytosis 1+ (NORMAL); Band Neutrophils Percent 23 % (0-6); Basophils Absolute Manual 0.21 K/mm3 (0.0-0.1); Basophils Percent Manual 1 % (0-1); Hypochromasia 1+ (NORMAL); Lymphocytes Absolute Manual 1.51 K/mm3 (1.1-4.5); Lymphocytes Percent Manual 7 % (18-44); Monocytes Absolute Manual 0.43 K/mm3 (0.1-0.90); Monocytes Percent Manual 2 % (3-9); Neutrophils Absolute Manual 19.44 K/mm3 (1.3-6.7); Neutrophils Percent Manual 67 % (46-73); Platelet Estimate Adequate (Adequate); Total Cells Counted 100
[2023-01-03 06:48] LABS: Microcytosis 1+ (NORMAL); Schistocytes None Seen (NORMAL)
[2023-01-03] MEDS: ACETAMINOPHEN 325 MG TABLET 650 MG PO (07:36)
[2023-01-03] MEDS: CARBAMIDE PEROXIDE 6.5% OT SOLN 15 ML BTL 5 DROP EACH EAR ×2 (09:38→21:17)
[2023-01-03] MEDS: ENOXAPARIN 60 MG/0.6 ML SYRINGE 55 MG SUB-Q ×2 (09:39→21:17)
[2023-01-03] MEDS: CYANOCOBALAMIN 1,000 MCG TABLET 1000 MCG PO (09:41)
[2023-01-03] MEDS: FERROUS SULFATE 324 MG TABLET PO ×2 (09:42→17:06)
[2023-01-03] MEDS: AMIODARONE HCL 200 MG TABLET PO (09:42)
[2023-01-03] MEDS: FILGRASTIM-SNDZ 480 MCG/0.8 ML SYRINGE SUB-Q (09:43)
[2023-01-03] MEDS: SODIUM CHLORIDE 0.9% IV 1,000 ML 75 ML IV CONT (13:11)
[2023-01-03] MEDS: AMOXICILLIN/CLAVULANATE K 875-125 MG TAB 1 TABLET PO ×2 (13:11→21:17)
--- NOTE | 2023-01-03 16:34 | PM.IMPN ---
Progress Note: A&P Assessment and Plan (1) Atrial fibrillation with rapid ventricular response: Code(s): I48.91 - Unspecified atrial fibrillation Status: Acute (2) Metastatic non-small cell lung cancer: Code(s): C34.90 - Malignant neoplasm of unspecified part of unspecified bronchus or lung Status: Acute (3) Dehydration: Code(s): E86.0 - Dehydration Status: Acute (4) Hypotension: Code(s): I95.9 - Hypotension, unspecified Status: Acute Plan The patient presented to the emergency department from home for evaluation of weakness since his initial chemotherapy treatment approximately 10 days ago. Labs, imaging, EKG, and reports were personally reviewed. He was found to be in AFib/RVR and has been started on an amiodarone drip. He is on amiodarone at home and states compliance with this drug. I assume he continues to have recurrent episodes of the same due to his large lung mass with compression of the bronchus and findings of pericardial and right atrial appendage masses suspicious for metastatic disease. He is not on anticoagulation given a CHADS2 Vasc score of 1. He is dry on exam and by history and is being judiciously hydrated overnight. He has several, mild electrolyte abnormalities including mild hyponatremia and mild hypercalcemia which should improve with IV fluids. His calcium is always a bit high however and may be related to his malignancy. Hypotension is improving with IV fluids. No significant evidence to suggest acute infection though with his neutropenia Dr. Norton requested he be given a dose of levofloxacin which I will defer to him whether not to continue. 01/03/2023 interval history: patient with a invasive is squamous cell carcinoma of right lung presented with complaint of weakness and tired, patient also found to have leukopenia he is been treated with Neupogen by his oncologist. upon arrival his white counts were 1.6 and today his white counts have jumped to 21.6, will CPM, patient states he is in constant pain, poor appetite and unable to sleep, discussed with the patient for possible comfort care hospice,he is not ready for that, also patient is a full code and he is chronically ill, he wants to continue to be full code, will continue present management, upon arrival patient had AFib with RVR now patient has sinus was concerning for proximal atrial fibrillation, will continue to coagulate patient, his blood culture is growing Staphylococcus epididymis, and granulicatella adiacens, discussed with ID pharmacy sent patient does not have any clinical symptoms recommended doxycycline, will have a PT OT evaluate the patient and further recommendation to follow. Subjective Date/time seen: 01/03/23 16:34 01/03/2023 interval history: patient with a invasive is squamous cell carcinoma of right lung presented with complaint of weakness and tired, patient also found to have leukopenia he is been treated with Neupogen by his oncologist. upon arrival his white counts were 1.6 and today his white counts have jumped to 21.6, will CPM, patient states he is in constant pain, poor appetite and unable to sleep, discussed with the patient for possible comfort care hospice,he is not ready for that, also patient is a full code and he is chronically ill, he wants to continue to be full code, will continue present management, upon arrival patient had AFib with RVR now patient has sinus was concerning for proximal atrial fibrillation, will continue to coagulate patient, his blood culture is growing Staphylococcus epididymis, and granulicatella adiacens, discussed with ID pharmacy sent patient does not have any clinical symptoms recommended doxycycline, will have a PT OT evaluate the patient and further recommendation to follow. Review of Systems Review of Systems: Twelve systems were reviewed and are negative except for as per HPI. Exam Narrative: patient appears chronically and malnouris
[2023-01-04] VITALS (13 sets, daily range): BP systolic 116–125; BP diastolic 73–90; PULSE 76–92; RESP 16–100; TEMP 36.5–37.1; O2SAT 14–100
[2023-01-04] MEDS: SODIUM CHLORIDE 0.9% IV 1,000 ML 75 ML IV CONT (05:12)
[2023-01-04 06:22] LABS: Hematocrit 29.2 % (42.0-52.0); Hemoglobin 8.8 g/dL (14.0-18.0); Mean Corpuscular HGB Conc 30.1 g/dl (32-36); Mean Corpuscular Hemoglobin 23.2 pg (26-34); Mean Corpuscular Volume 76.8 fl (80-100); Mean Platelet Volume 8.9 fl (7.4-10.4); Platelet Count Result 335 k/mm3 (150-375); Red Cell Distribution Width 19.5 % (11.5-14.5); White Blood Count 41.6 K/mm3 (4.5-10.0)
[2023-01-04 06:30] LABS: Alanine Aminotransferase 32 U/L (6-50); Albumin Level 2.8 g/dL (3.5-5.1); Alkaline Phosphatase 152 U/L (38-126); Anion Gap 2 mmol/L (8-16); Aspartate Amino Transferase 30 U/L (17-59); Bilirubin,Total 0.4 mg/dL (0.2-1.3); Blood Urea Nitrogen 6 mg/dL (9-20); Calcium 8.6 mg/dL (8.4-10.2); Carbon Dioxide 29 mmol/L (22-30); Chloride 105 mmol/L (98-107); Estimated CRCL calculation 87 ml/min; Estimated Glomerular Filt Rate > 60; Glucose 84 mg/dL (65-110); Magnesium 1.6 mg/dL (1.6-2.3); Potassium 3.6 mmol/L (3.4-5.0); Sodium 136 mmol/L (137-145)
[2023-01-04 07:27] LABS: Anisocytosis 1+ (NORMAL); Band Neutrophils Percent 34 % (0-6); Basophils Absolute Manual 0.41 K/mm3 (0.0-0.1); Basophils Percent Manual 1 % (0-1); Eosinophils Absolute Manual 0.41 K/mm3 (0.02-0.5); Eosinophils Percent Manual 1 % (0-4); Hypochromasia 2+ (NORMAL); Lymphocytes Absolute Manual 6.24 K/mm3 (1.1-4.5); Metamyelocytes Percent 3 %; Monocytes Absolute Manual 1.66 K/mm3 (0.1-0.90); Monocytes Percent Manual 4 % (3-9); Neutrophils Absolute Manual 31.61 K/mm3 (1.3-6.7); Neutrophils Percent Manual 42 % (46-73); Platelet Estimate Adequate (Adequate); Poikilocytosis 2+ (NORMAL); Schistocytes None Seen (NORMAL); Total Cells Counted 100
[2023-01-04] MEDS: ENOXAPARIN 60 MG/0.6 ML SYRINGE 55 MG SUB-Q (10:26)
[2023-01-04] MEDS: FERROUS SULFATE 324 MG TABLET PO ×2 (10:27→17:53)
[2023-01-04] MEDS: AMIODARONE HCL 200 MG TABLET PO (10:27)
[2023-01-04] MEDS: CYANOCOBALAMIN 1,000 MCG TABLET 1000 MCG PO (10:27)
[2023-01-04] MEDS: AMOXICILLIN/CLAVULANATE K 875-125 MG TAB 1 TABLET PO ×2 (10:27→21:14)
--- NOTE | 2023-01-04 14:09 | PM.IMPN ---
Progress Note: A&P Assessment and Plan (1) Atrial fibrillation with rapid ventricular response: Code(s): I48.91 - Unspecified atrial fibrillation Status: Acute (2) Metastatic non-small cell lung cancer: Code(s): C34.90 - Malignant neoplasm of unspecified part of unspecified bronchus or lung Status: Acute (3) Dehydration: Code(s): E86.0 - Dehydration Status: Acute (4) Hypotension: Code(s): I95.9 - Hypotension, unspecified Status: Acute Plan The patient presented to the emergency department from home for evaluation of weakness since his initial chemotherapy treatment approximately 10 days ago. Labs, imaging, EKG, and reports were personally reviewed. He was found to be in AFib/RVR and has been started on an amiodarone drip. He is on amiodarone at home and states compliance with this drug. I assume he continues to have recurrent episodes of the same due to his large lung mass with compression of the bronchus and findings of pericardial and right atrial appendage masses suspicious for metastatic disease. He is not on anticoagulation given a CHADS2 Vasc score of 1. He is dry on exam and by history and is being judiciously hydrated overnight. He has several, mild electrolyte abnormalities including mild hyponatremia and mild hypercalcemia which should improve with IV fluids. His calcium is always a bit high however and may be related to his malignancy. Hypotension is improving with IV fluids. No significant evidence to suggest acute infection though with his neutropenia Dr. Norton requested he be given a dose of levofloxacin which I will defer to him whether not to continue. 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 upon arrival his white counts were 1.6 and on 01/03 his white counts have jumped to 21.6 and stopped neupogen, however today his white counts jennifer to 41.6 most likely due neopogen, will CPM, patient states he is in constant pain, poor appetite and unable to sleep, discussed with the patient for possible comfort care hospice,he is not ready for that, also patient is a full code and he is chronically ill, he wants to continue to be full code, will continue present management, upon arrival patient had AFib with RVR now patient has sinus was concerning for proximal atrial fibrillation, will continue to coagulate patient, will switch patient to Eliquis. his blood culture is growing Staphylococcus epididymis, and granulicatella adiacens, discussed with ID pharmacy sent patient does not have any clinical symptoms recommended doxycycline, will have a PT OT evaluate the patient and further recommendation to follow. 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 upon arrival his white counts were 1.6 and on 01/03 his white counts have jumped to 21.6 and stopped neupogen, however today his white counts jennifer to 41.6 most likely due neopogen, will CPM, patient states he is in constant pain, poor appetite and unable to sleep, discussed with the patient for possible comfort care hospice,he is not ready for that, also patient is a full code and he is chronically ill, he wants to continue to be full code, will continue present management, upon arrival patient had AFib with RVR now patient has sinus was concerning for proximal atrial fibrillation, will continue to coagulate patient, will switch patient to Eliquis. his blood culture is growing Staphylococcus epididymis, and granulicatella adiacens, discussed with ID pharmacy sent patient does not have any clinical symptoms recommended doxycycline, will have
[2023-01-04] MEDS: APIXABAN 5 MG TABLET PO (21:15)
[2023-01-04] MEDS: CARBAMIDE PEROXIDE 6.5% OT SOLN 15 ML BTL 5 DROP EACH EAR (21:16)
[2023-01-04] MEDS: SALIVA SUBSTITUTE COMBO RINSE 237 ML BOTTLE 15 ML PO (21:17)
[2023-01-05] MEDS: SODIUM CHLORIDE 0.9% IV 1,000 ML 75 ML IV CONT (01:09)
[2023-01-05 04:00] VITALS: PULSE 73
[2023-01-05] MEDS: ACETAMINOPHEN 325 MG TABLET 650 MG PO (05:50)
[2023-01-05 06:00] VITALS: BP 119/78; PULSE 79; RESP 16; TEMP 36.6; O2SAT 100
[2023-01-05 08:00] VITALS: BP 118/76; PULSE 65; PULSE 79; RESP 26; TEMP 36.5; O2SAT 100
[2023-01-05 08:07] LABS: Basophils Absolute Auto 0.2 K/mm3 (0.0-0.1); Basophils Percent Auto 0.9 % (0.2-1.2); Eosinophils Absolute Auto 0.2 K/mm3 (0-0.3); Eosinophils Percent Auto 0.8 % (0-4.4); Hematocrit 27.5 % (42.0-52.0); Hemoglobin 8.2 g/dL (14.0-18.0); Immature Granulocyte Absolute 2.08 K/mm3 (0.00-0.031); Immature Granulocyte Percent A 7.6 % (0-0.5); Lymphocytes Absolute Auto 2.29 K/mm3 (0.9-3.2); Lymphocytes Percent Auto 8.4 % (18.3-44.2); Mean Corpuscular HGB Conc 29.8 g/dl (32-36); Mean Corpuscular Hemoglobin 22.3 pg (26-34); Mean Corpuscular Volume 74.7 fl (80-100); Mean Platelet Volume 8.7 fl (7.4-10.4); Monocytes Absolute Auto 2.6 K/mm3 (0.1-0.6); Monocytes Percent Auto 9.6 % (2.6-8.5); Neutrophils Absolute Auto 19.9 K/mm3 (1.3-6.7); Neutrophils Percent Auto 72.7 % (45.5-73.1); Nucleated Red Blood Cells Absolute Auto 0.1 K/mm3 (0.0-0.012); Nucleated Red Blood Cells Perc 0.2 % (0.0-0.2); Platelet Count Result 332 k/mm3 (150-375); Red Blood Count 3.68 M/mm3 (4.6-6.20); Red Cell Distribution Width 19.8 % (11.5-14.5); White Blood Count 27.4 K/mm3 (4.5-10.0)
[2023-01-05 08:08] LABS: Alanine Aminotransferase 33 U/L (6-50); Albumin Level 2.9 g/dL (3.5-5.1); Alkaline Phosphatase 131 U/L (38-126); Anion Gap 4 mmol/L (8-16); Aspartate Amino Transferase 27 U/L (17-59); Bilirubin,Total 0.4 mg/dL (0.2-1.3); Blood Urea Nitrogen 7 mg/dL (9-20); Calcium 8.6 mg/dL (8.4-10.2); Carbon Dioxide 28 mmol/L (22-30); Chloride 102 mmol/L (98-107); Estimated CRCL calculation 70 ml/min; Estimated Glomerular Filt Rate > 60; Glucose 93 mg/dL (65-110); Magnesium 1.8 mg/dL (1.6-2.3); Potassium 3.7 mmol/L (3.4-5.0); Sodium 134 mmol/L (137-145)
[2023-01-05 08:20] VITALS: PULSE 72
[2023-01-05] MEDS: AMIODARONE HCL 200 MG TABLET PO (08:20)
[2023-01-05] MEDS: CYANOCOBALAMIN 1,000 MCG TABLET 1000 MCG PO (08:21)
[2023-01-05] MEDS: AMOXICILLIN/CLAVULANATE K 875-125 MG TAB 1 TABLET PO (08:21)
[2023-01-05] MEDS: FERROUS SULFATE 324 MG TABLET PO (08:21)
[2023-01-05] MEDS: APIXABAN 5 MG TABLET PO (08:21)
[2023-01-05 08:31] VITALS: BP 110/73; BP 126/70
[2023-01-05 08:51] LABS: Anisocytosis 1+ (NORMAL); Hypochromasia 1+ (NORMAL); Platelet Estimate Adequate (Adequate); Schistocytes None Seen (NORMAL)
--- NOTE | 2023-01-05 11:08 | PM.DS ---
DS: Admitting Diagnosis Discharge Date 01/05/2023 Admitting Diagnosis Weakness DS: Discharge Diagnosis Discharge Diagnosis (1) Atrial fibrillation with rapid ventricular response: Code(s): I48.91 - Unspecified atrial fibrillation Status: Acute (2) Metastatic non-small cell lung cancer: Code(s): C34.90 - Malignant neoplasm of unspecified part of unspecified bronchus or lung Status: Acute (3) Dehydration: Code(s): E86.0 - Dehydration Status: Acute (4) Hypotension: Code(s): I95.9 - Hypotension, unspecified Status: Acute Plan The patient presented to the emergency department from home for evaluation of weakness since his initial chemotherapy treatment approximately 10 days ago. Labs, imaging, EKG, and reports were personally reviewed. He was found to be in AFib/RVR and has been started on an amiodarone drip. He is on amiodarone at home and states compliance with this drug. I assume he continues to have recurrent episodes of the same due to his large lung mass with compression of the bronchus and findings of pericardial and right atrial appendage masses suspicious for metastatic disease. He is not on anticoagulation given a CHADS2 Vasc score of 1. He is dry on exam and by history and is being judiciously hydrated overnight. He has several, mild electrolyte abnormalities including mild hyponatremia and mild hypercalcemia which should improve with IV fluids. His calcium is always a bit high however and may be related to his malignancy. Hypotension is improving with IV fluids. No significant evidence to suggest acute infection though with his neutropenia Dr. Norton requested he be given a dose of levofloxacin which I will defer to him whether not to continue. 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 upon arrival his white counts were 1.6 and on 01/03 his white counts have jumped to 21.6 and stopped neupogen, however today his white counts jennifer to 41.6 most likely due neopogen, will CPM, patient states he is in constant pain, poor appetite and unable to sleep, discussed with the patient for possible comfort care hospice,he is not ready for that, also patient is a full code and he is chronically ill, he wants to continue to be full code, will continue present management, upon arrival patient had AFib with RVR now patient has sinus was concerning for proximal atrial fibrillation, will continue to coagulate patient, will switch patient to Eliquis. his blood culture is growing Staphylococcus epididymis, and granulicatella adiacens, discussed with ID pharmacy sent patient does not have any clinical symptoms recommended doxycycline, will have a PT OT evaluate the patient and further recommendation to follow. DS: Summary Hospital Course Reason for hospitalization: Weakness. 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 He is known to the hospitalist service from 2 recent admissions for atrial fibrillation with rapid ventricular response and postobstructive pneumonia. Since that time he received his 1st chemotherapy infusion and he did well for the 1st few days however over the past week he has been feeling increasingly weak with essentially no appetite, ongoing nausea, and significant fatigue. He has a chronic cough which is mainly productive of clear mucus but today he reports coughing up a small amount of bright red blood.? He has also been increasingly short of breath and he gets winded and extremely weak even walking 10 steps. He denies fall, syncope, fever, chills, sweats, chest pain, pleuritic pain, racing heart, palpitations, vomiting, and diarrhea. He wa
[2023-01-05 12:00] VITALS: PULSE 85
== END 2023-01-05 13:25 | disposition home or self-care (01) | DRG 309 ==
LOC: ANHED 18:29 → ANHIMU 19:02 → ANH3MEDSUR 01-01 07:41 → ANHIMU 01-08 09:30
PROVIDERS: Physician Assistant; Admitting Provider Chiropractor; Emergency Provider Emergency Medicine; Visit Provider Family Medicine
DX: I48.91 Unspecified atrial fibrillation (principal); C34.91 Malignant neoplasm of unspecified part of right bronchus or lung; R64 Cachexia; Z68.1 Body mass index [BMI] 19.9 or less, adult; E46 Unspecified protein-calorie malnutrition; E87.1 Hypo-osmolality and hyponatremia; C79.89 Secondary malignant neoplasm of other specified sites; C78.7 Secondary malignant neoplasm of liver and intrahepatic bile duct; E86.0 Dehydration; D70.1 Agranulocytosis secondary to cancer chemotherapy; T45.1X5A Adverse effect of antineoplastic and immunosuppressive drugs, initial encounter; D64.81 Anemia due to antineoplastic chemotherapy; Z20.822 Contact with and (suspected) exposure to COVID-19; F17.210 Nicotine dependence, cigarettes, uncomplicated; I95.9 Hypotension, unspecified; B95.7 Other staphylococcus as the cause of diseases classified elsewhere; E83.52 Hypercalcemia
CPT/HCPCS: 36415; 71275; 74177; 80048; 80053; 81001; 83605; 83735; 84484; 85025; 85610; 85730; 87040; 87147; 87181; 87186; 87636; 93005; 94640; 96361; 96365; 96372; 96375; 99285; A9270; G0378; J0282; J1650; J1756; J1956; J7030; J7050; Q5101; Q9967

== ENCOUNTER 2023-03-20 16:37 | Inpatient (IN) | payer MEDICARE, MEDICAID, SELFPAY ==
--- NOTE | ~2023-03-20 | XR_ITS ---
Portable chest x-ray Comparison: 12/18/2022 Clinical History: Cancer, atelectasis Findings: Right-sided Mediport in place. There is complete white out of the right hemithorax with pr obable mild leftward mediastinal shift. Left lung clear. Cardiomediastinal silhouette is stable. Bon es and soft tissues are unremarkable. Impression: Stable complete white out of the right hemithorax. Please refer to prior CT scan dated 12/30/2022 for further details. Stable right-sided Mediport. Reviewed, dictated and finalized at location . Impression: Stable complete white out of the right hemithorax. Please refer to prior CT sca n dated 12/30/2022 for further details. Stable right-sided Mediport.
--- NOTE | ~2023-03-20 | CT_ITS ---
EXAMINATION: CT diagnostic chest wo con DATE: 03/20/2023 15:04 INDICATION: Pleural effusion. History of lung cancer. TECHNIQUE: Computed tomography (CT) of the chest was performed without intravenous contrast. The dose -length product was 137.74 mGy-cm. Automated exposure control and iterative reconstruction technique were employed. COMPARISON: Chest x-ray dated 03/20/[address] dated 12/30/2022 FINDINGS: there is a large hyperdense right pleural effusion which may represent proteinaceous materi al or hemorrhage. There is compressive atelectasis. There is mediastinal lymphadenopathy, likely meta static disease. Small pericardial effusion. There is nodular thickening of the left adrenal gland. Ca nnot exclude metastatic disease. There are reticulonodular densities of the left upper and lower lobe with areas of groundglass opacification and consolidation in the left lower lobe, most likely infect ious/inflammatory. There are old healed right rib fractures posteriorly. IMPRESSION: 1. Large hyperdense right pleural effusion which could represent proteinaceous (i.e. malignant effusi on) or hemorrhage. There is underlying compressive atelectasis. 2: Mediastinal lymphadenopathy, consistent with metastatic disease. 3: Nodular thickening of the left adrenal gland, suspicious for metastatic disease. 4: Mixed interstitial and airspace disease of the left upper and lower lobe, most likely infectious/i nflammatory. Reviewed, dictated and finalized at location A. IMPRESSION: 1. Large hyperdense right pleural effusion which could represent proteinaceous (i.e. malignant effusion) or hemorrhage. There is underlying compressive atelec tasis. 2: Mediastinal lymphadenopathy, consistent with metastatic disease. 3: Nodular thickening of the left adrenal gland, suspicious for metastatic dise ase. 4: Mixed interstitial and airspace disease of the left upper and lower lobe, mo st likely infectious/inflammatory.
--- NOTE | ~2023-03-20 | US_ITS ---
EXAMINATION: US soft tissue chest DATE: 03/22/2023 15:11 INDICATION: Right pleural effusion TECHNIQUE: Multiple grayscale and Doppler ultrasound images of the right hemithorax were obtained. COMPARISON: CT dated 03/20/2023 FINDINGS: There is only a minimal amount of fluid situated between thickened pleura and the consolidated lung. Much of the opacification of the right hemithorax results from volume loss with elevation of right he midiaphragm and underlying liver which is seen in the abdomen at the level of the nipple line. IMPRESSION: 1. Minimal right pleural effusion with opacification of the right hemithorax resulting from consolida tion and some volume loss throughout the right lung with pleural thickening and elevation the right h emidiaphragm. The planned thoracentesis was canceled. Reviewed, dictated and finalized at location A. IMPRESSION: 1. Minimal right pleural effusion with opacification of the right hemithorax re sulting from consolidation and some volume loss throughout the right lung with pleural thickening and elevation the right hemidiaphragm. The planned thoracent esis was canceled.
[2023-03-20 10:44] VITALS: BP 98/64; PULSE 88; RESP 18; TEMP 36.7; O2SAT 99
--- NOTE | 2023-03-20 10:46 | PC.NURSE ---
This patient, Alonso Camara, was admitted to Medical Room 258-. Patient/family oriented to hospital policies and general routines including ID bracelet, bed and alarms, visiting hours, pain management, procedures, bathroom and other care routines, personal items, smoking policy, room service/diet, and visiting hours. Information on how to activate the Rapid Response Team has been discussed. Patient/Family are encouraged to report perceived risks to care and to ask questions if they do not understand what they are told or what they should do.
[2023-03-20 10:53] VITALS: BMI 16.9
--- NOTE | 2023-03-20 11:55 | PCRCNOTE ---
PT. AND FAMILY BOTH STATE PT. DOES NOT WEAR A CPAP OR BIPAP AT HOME.
[2023-03-20 12:00] VITALS: PULSE 102
--- NOTE | 2023-03-20 12:59 | PDONCCN ---
[facility] - Date of Consult Date/Time: 03/20/23 12:59 Requesting Physician: Ab Neumann MD Primary Care Provider: UNKNOWN,DOCTOR - Consult Narrative Reason for consult: Metastatic non-small cell lung cancer Narrative: Alonso Camara is a 67 year old male with history of non-small cell lung cancer metastatic disease currently on chemotherapy with carboplatin, Taxol and Keytruda received cycle 3 on March 17. He was admitted to the hospital with shortness of breath poor appetite tiredness and fatigue and lethargic. He was transferred to [facility]. Labs from the outside hospital showed low WBC count. Chest x-ray showed stable complete opacification of the right hemithorax. He has been coughing with some shortness of breath. Complain of some chest discomfort due to the cough. He has been eating poorly and has been losing weight. Denies any fevers and chills. Labs are pending from today. Review of Systems - Review of Systems All systems reviewed & are unremarkable except as noted in [facility] and [facility] Medical History: Medical History (Last Reviewed 12/31/22 @ 00:16 by Niki Conti PA-C) Cocaine abuse Clean since fall 2021. Nicotine dependence with current use Squamous cell carcinoma of right lung Surgical History: Surgical History (Last Reviewed 12/31/22 @ 00:16 by Niki Conti PA-C) History of open reduction and internal fixation (ORIF) procedure Right hip pinning. Family History: Family History (Last Reviewed 03/20/23 @ 11:03 by Malena Fatima RN) Mother COPD (chronic obstructive pulmonary disease) Sibling Lung cancer Father Brain cancer - Social History Social History: Social History (Last Reviewed 12/31/22 @ 00:16 by Niki Conti PA-C) Alcohol Use: Alcohol intake: never Drinks per week: 4 Substance Use: Substance use: current Substance use type: marijuana Other substance usage details: 03/14/23 Last use: 12/13/2022 Others: Spiritual care concerns: No Living Arrangements: Living arrangements: with family Smoking Status: Smoking status: Current every day smoker Tobacco type: cigarettes Smoking Pack-years: Smoking packs per day: 0.2 Smoking cigarettes per day: 4.0 Years smoked: 25 Smoking pack-years: 50.00 Comments: Additional smoking assessment comments: Down to 1 cigarette a day. Social Determinants of Health: Has the Lack of Transportation Kept You From Medical Appointments or From Getting Medications?: No Within the Past 12 Months, Were You Worried Whether Your Food Would Run Out Before You Got Money to Buy More?: Never True What is Your Housing Situation Today?: I Have Housing Are You Worried That in the Next 2 Months, You May Not Have Your Own Housing to Live In?: No Do You Have Trouble Paying Your Heating Or Electricity Bill?: No Do You Have Trouble Paying For Medicines?: No Are You Currently Unemployed and Looking for Work?: No Highest Level of Education Completed: Grade School Do You Have Trouble With Childcare or the Care of a Family Member?: No Exam - Vital Signs Vital Signs - 24 hr 03/20/23 10:44 03/20/23 11:00 03/20/23 12:00 Temperature 36.7 C Pulse Rate 88 102 H Respiratory Rate 18 Blood Pressure 98/64 L Pulse Oximetry 99 Oxygen Delivery Room Air - Exam HEENT: EOMI, PERRLA Neck: supple. No: JVD Lungs: rhonchi, wheezes Heart: no murmurs, gallops, or rubs Abdomen: abdomen soft, non-distended Extremities: normal pulses Integumentary: no abnormalities Neurological: normal speech Psychological: mental status NL, mood NL Meds Home Medications Medication Instructions Recorded Confirmed Type cyanocobalamin (vitamin B-12) 1,000 mcg PO DAILY #30 caps 10/24/22 03/20/23 Rx 1,000 mcg capsule ferrous sulfate 325 mg (65 mg 325 mg PO BIDWM #60 tabs 10/24/22 03/20/23 Rx iron) tablet a
--- NOTE | 2023-03-20 13:51 | PM.IMHP ---
H&P: HPI History of Present Illness Date/Time: 03/20/23 13:51 Chief Complaint: 67-year-old male with recently diagnosed lung cancer. According to the patient he has had 3 rounds of chemotherapy. His last round was a few days ago. Since then he has been exceptionally weak frail and not hungry and not eating. Went to [facility] and was found to have whiteout of his right lung. He is short of breath but is short of breath at baseline. Patient has poor functional capacity. To know we did receive a phone call from [facility] and his blood cultures were positive. He is also neutropenic. Oncology has been consult. He is also dealing chronic pain. Patient's history of iron deficiency anemia, atrial fibrillation. Review of Systems Review of Systems: Ten point review systems performed and negative except as stated in HPI. [facility] Past Medical History Medical History Cocaine abuse Clean since fall 2021. Nicotine dependence with current use Squamous cell carcinoma of right lung Surgical History Surgical History History of open reduction and internal fixation (ORIF) procedure Right hip pinning. Family History Family History Mother COPD (chronic obstructive pulmonary disease) Sibling Lung cancer Father Brain cancer Social History Social History Social History: Surrogate decision maker: Gilberto Garcia, grandson. Code status: Full code. Smoking packs per day: 0.2 Smoking cigarettes per day: 4.0 Years smoked: 25 Smoking pack-years: 5.00 Smoking status: Current every day smoker Tobacco type: cigarettes Additional smoking assessment comments: Down to 1 cigarette a day. Alcohol intake: never Drinks per week: 4 Substance use: current Substance use type: marijuana Other substance usage details: 03/14/23 Last use: 12/13/2022 Lack of Transportation: No Lack of Food: Never True Current Housing: I Have Housing Concerned About Future Housing: No Difficulty Paying Gas/Electric Bills: No Difficulty Paying for Meds: No Currently Unemployed: No Education: Grade School Difficulty w/ Childcare or Family Care: No Living arrangements: with family Additional living arrangements comments: Patient lives in his own apartment. Grandson and his family are currently staying with him until they can get on her feet. Additional occupation/education comments: Next retired, on social security. Spiritual care concerns: No Meds Home Medications and Allergies Home Medications Medication Instructions Recorded Confirmed Type cyanocobalamin (vitamin B-12) 1,000 mcg PO DAILY #30 caps 10/24/22 03/20/23 Rx 1,000 mcg capsule ferrous sulfate 325 mg (65 mg 325 mg PO BIDWM #60 tabs 10/24/22 03/20/23 Rx iron) tablet amiodarone 200 mg tablet (Pacerone) 200 mg PO DAILY@0800 #30 tabs 12/07/22 03/20/23 Rx hydrocodone 5 mg-acetaminophen 325 1 tablet PO Q4H PRN Pain Rated 4-6 12/07/22 03/20/23 Rx mg tablet #12 tabs apixaban 5 mg tablet (Eliquis) 5 mg PO Q12HR #60 tabs 01/05/23 03/20/23 Rx ipratropium bromide 0.02 % 0.5 mg (2.5 mL) inhalation Q6HRT 01/05/23 03/20/23 Rx solution for inhalation PRN Shortness Of Breath #60 mL saliva substitute combo no.9 15 ml PO QID PRN Dry Mouth #500 mL 01/05/23 03/20/23 Rx (Biotene Dry Mouth Oral Rinse mouthwash) Allergies Allergy/AdvReac Type Severity Reaction Status Date / Time No Known Allergies Allergy Verified 01/18/23 08:33 Vital Signs Vital Signs - 24 hr 03/20/23 10:44 03/20/23 11:00 03/20/23 12:00 Temperature 98.0 F Pulse Rate 88 102 H Respiratory Rate 18 Blood Pressure 98/64 L Pulse Oximetry 99 Oxygen Delivery Room Air Exam Narrative: General: alert and orient
[2023-03-20] MEDS: CEFEPIME 2 GM/NS 50 ML 2 GM/50 ML BAG IVPB (15:36)
[2023-03-20 15:41] LABS: Mean Corpuscular HGB Conc 30.6 g/dl (32-36); Mean Corpuscular Hemoglobin 24.9 pg (26-34); Mean Corpuscular Volume 81.4 fl (80-100); Mean Platelet Volume 10.7 fl (7.4-10.4); Platelet Count Result 104 k/mm3 (150-375); Red Blood Count 4.42 M/mm3 (4.6-6.20); Red Cell Distribution Width 18.9 % (11.5-14.5)
[2023-03-20 15:50] LABS: Anion Gap 4 mmol/L (8-16); Blood Urea Nitrogen 18 mg/dL (9-20); Calcium 11.7 mg/dL (8.4-10.2); Carbon Dioxide 32 mmol/L (22-30); Chloride 92 mmol/L (98-107); Estimated CRCL calculation 50 ml/min; Estimated Glomerular Filt Rate > 60; Glucose 69 mg/dL (65-110); Potassium 4.2 mmol/L (3.4-5.0); Sodium 128 mmol/L (137-145)
[2023-03-20 16:00] VITALS: PULSE 102
[2023-03-20 16:18] LABS: White Blood Count 0.1 K/mm3 (4.5-10.0)
[2023-03-20 16:22] LABS: Lymphocytes Absolute Manual 0.07 K/mm3 (1.1-4.5); Monocytes Percent Manual 5 % (3-9); Neutrophils Percent Manual 25 % (46-73); Platelet Estimate Decreased (Adequate); Schistocytes None Seen (NORMAL); Total Cells Counted 100
[2023-03-20 16:23] LABS: Anisocytosis 2+ (NORMAL); Hypochromasia 1+ (NORMAL); Large Platelets Present
[2023-03-20] MEDS: LACTATED RINGERS 500 ML 75 ML IV CONT (16:27)
[2023-03-20] MEDS: oxyCODONE/ACETAMINOPHEN (*CRX) 10-325 MG TABLET 1 TAB PO (16:34)
[2023-03-20] MEDS: FERROUS SULFATE 324 MG TABLET PO (18:00)
[2023-03-20] MEDS: predniSONE 20 MG TABLET 40 MG PO (18:00)
[2023-03-20 19:53] VITALS: BP 94/70; PULSE 90; RESP 18; TEMP 36.4; O2SAT 98
[2023-03-20 20:00] VITALS: PULSE 90
[2023-03-20] MEDS: CENTRAL LINE FLUSH 10 ML IV PUSH (20:37)
[2023-03-20] MEDS: APIXABAN 5 MG TABLET PO (20:37)
[2023-03-20] MEDS: SALIVA SUBSTITUTE RINSE 473 ML BOTTLE 15 ML PO (20:39)
[2023-03-20 22:00] VITALS: BP 94/60; PULSE 92; RESP 18; TEMP 36.1; O2SAT 98
[2023-03-21] VITALS (12 sets, daily range): BP systolic 104–112; BP diastolic 46–72; PULSE 84–150; RESP 18–22; TEMP 36.4–36.7; O2SAT 92–95; BMI 16.9
[2023-03-21] MEDS: LACTATED RINGERS 1,000 ML 75 ML IV CONT ×2 (00:45→17:13)
[2023-03-21] MEDS: CEFEPIME 2 GM/NS 50 ML 2 GM/50 ML BAG IVPB ×2 (02:17→14:34)
[2023-03-21] MEDS: oxyCODONE/ACETAMINOPHEN (*CRX) 10-325 MG TABLET 1 TAB PO (02:25)
[2023-03-21] MEDS: CENTRAL LINE FLUSH 10 ML IV PUSH ×3 (06:42→23:41)
[2023-03-21 07:00] LABS: Estimated CRCL calculation 56 ml/min; Estimated Glomerular Filt Rate > 60
[2023-03-21] MEDS: AMIODARONE HCL 200 MG TABLET PO (08:19)
[2023-03-21] MEDS: FERROUS SULFATE 324 MG TABLET PO ×2 (08:19→17:14)
[2023-03-21] MEDS: FILGRASTIM-SNDZ 480 MCG/0.8 ML SYRINGE SUB-Q (08:19)
[2023-03-21] MEDS: APIXABAN 5 MG TABLET PO (08:19)
[2023-03-21] MEDS: predniSONE 20 MG TABLET 40 MG PO ×2 (08:20→17:14)
[2023-03-21] MEDS: CYANOCOBALAMIN 1,000 MCG TABLET 1000 MCG PO (08:20)
--- NOTE | 2023-03-21 10:38 | PM.IMPN ---
Progress Note: A&P Assessment and Plan (1) Hypotension: Code(s): I95.9 - Hypotension, unspecified Status: Acute Assessment and Plan: IV fluids (2) Dehydration: Code(s): E86.0 - Dehydration Status: Acute Assessment and Plan: IV fluids (3) Atrial fibrillation with rapid ventricular response: Code(s): I48.91 - Unspecified atrial fibrillation Status: Acute Assessment and Plan: Rates appear control. Continue home medications. (4) Neutropenia: Code(s): D70.9 - Neutropenia, unspecified Status: Acute Assessment and Plan: Positive blood cultures at outside facility. Start on IV vanc and cefepime. Re-culture. No fever documented. (5) Lung cancer: Code(s): C34.90 - Malignant neoplasm of unspecified part of unspecified bronchus or lung Status: Acute Assessment and Plan: Oncology consult. (6) Postobstructive pneumonia: Code(s): J18.9 - Pneumonia, unspecified organism Status: Acute Assessment and Plan: Likely. Chest x-ray noted possible pleural effusion. Will get a CT scan. Consider thoracentesis. (7) Pleural effusion: Code(s): J90 - Pleural effusion, not elsewhere classified Status: Acute Assessment and Plan: Thoracentesis ordered. Likely malignant Subjective Date/time seen: 03/21/23 10:38 No new complaints. Reports he feels a little bit better. Exam Narrative: General: alert and oriented Psych: appropriate mood nad affect Eyes: PERRLA Neck: Trachea midline, no new lesions Skin: no changes Lungs: Decreased lung sounds on the right Cardiac: Normal S1,S2, no MGR ABD: soft, nd, nt, nbs Ext: no new lesions, no cce Vasc: Pulses intact Objective Data Vital Signs Vital Signs: Vital Signs - 24 hr 03/20/23 10:44 03/20/23 11:00 03/20/23 12:00 Temperature 98.0 F Pulse Rate 88 102 H Respiratory Rate 18 Blood Pressure 98/64 L Pulse Oximetry 99 Oxygen Delivery Room Air 03/20/23 16:00 03/20/23 19:53 03/20/23 22:00 Temperature 97.5 F L 97.0 F L Pulse Rate 102 H 90 92 Respiratory Rate 18 18 Blood Pressure 94/70 L 94/60 L Pulse Oximetry 98 98 Oxygen Delivery 03/20/23 20:00 04/19/23 20:00 03/21/23 00:00 Temperature Pulse Rate 90 97 Respiratory Rate Blood Pressure Pulse Oximetry Oxygen Delivery Room Air 03/21/23 04:00 03/21/23 06:00 Temperature 97.7 F Pulse Rate 91 84 Respiratory Rate 18 Blood Pressure 112/46 L Pulse Oximetry 95 Oxygen Delivery Intake/Output Intake/Output: Intake & Output 03/18/23 03/19/23 03/20/23 03/21/23 23:59 23:59 23:59 23:59 Intake Total 1540 670 Output Total 250 250 Balance 1290 420 Meds/Results Medications: Active Medications Generic Name Dose Route Start Last Admin Trade Name Freq PRN Reason Stop Dose Admin Amiodarone HCl 200 mg 03/21/23 08:00 03/21/23 08:19 Amiodarone Hcl 200 Mg Tablet PO 200 mg DAILY@0800 IRASEMA Administration Apixaban 5 mg 03/20/23 21:00 03/21/23 08:19 Apixaban 5 Mg Tablet PO 5 mg Q12HR IRASEMA Administration Cyanocobalamin 1,000 mcg 03/21/23 09:00 03/21/23 08:20 Cyanocobalamin 1,000 Mcg Tablet PO 1,000 mcg DAILY IRASEMA Administration Ferrous Sulfate 324 mg 03/20/23 17:00 03/21/23 08:19 Ferrous Sulfate 324 Mg Tablet PO 324 mg BIDWM IRASEMA Administration Filgrastim-Sndz 480 mcg 03/21/23 09:00 03/21/23 08:19 Filgrastim-Sndz 480 Mcg/0.8 Ml Syringe SUB-Q 480 mcg DAILY IRASEMA Administration Guaifenesin/Dextromethorphan 10 ml 03/21/23 03:09 Guaifenesin/Dextromethorphan 10 Ml Udc PO TID PRN Cough Heparin Sodium (Beef Lung) 50 units 03/21/23 09:00 03/21/23 08:20 Heparin Flush 50 Units/5 Ml Syringe IV PUSH Not Given QAM IRASEMA Heparin Sodium (Beef Lung) 50 units 03/20/23 14:16 Heparin Flush 50 Units/5 Ml Syringe IV PUSH PRN PRN after intermittent infusion Heparin
[2023-03-21 11:41] LABS: Glucose 67 mg/dL (65-110); Lactate Dehydrogenase 96 U/L (120-246)
[2023-03-21 11:44] LABS: INR 3.1; Prothrombin Time 30.9 Seconds (11.1-14.7)
--- NOTE | 2023-03-21 12:21 | PC.NURSE ---
On 03/21/23, the student, [Martine Chen], provided care and [facility]. I have reviewed the student's documentation and agree with the findings.
[2023-03-21] MEDS: IPRATROPIUM BR 0.02% INH SOLN 0.5 MG/2.5 ML VIAL INHALATION (18:58)
[2023-03-21] MEDS: ACETAMINOPHEN 325 MG TABLET 650 MG PO (19:18)
[2023-03-21] MEDS: guaiFENesin/DEXTROMETHORPHAN 10 ML UDC PO (22:32)
[2023-03-21] MEDS: DIGOXIN INJ 250 MCG/ML 2 ML AMP (*BKC) 125 MCG IV PUSH (23:30)
[2023-03-21] MEDS: guaiFENesin 12 HR 600 MG TABCR 1200 MG PO (23:38)
[2023-03-22] VITALS (19 sets, daily range): BP systolic 84–107; BP diastolic 57–81; PULSE 87–150; RESP 18–20; TEMP 36.2–36.6; O2SAT 92–98
--- NOTE | 2023-03-22 | ECHOL_ITS ---
Patient Info Name: Alonso Camara Age: 67 years : 1955 Gender: Male Ht: 67 in Wt: 108 lbs BSA: 1.51 m2 HR: 137 bpm BP: 90 / 64 mmHg Technical Quality: Fair Exam Date: 03/22/2023 10:26 AM Exam Location: [facility] Pulmonary Exam Room: 258 Patient Status: Inpatient Admit Date: 03/20/2023 Staff Ordering Physician: Baldo Nathan MD Target Developer: Pallavi Guajardo RDCS Attending Provider: Ab Neumann MD Referring Physician: Jac NASH; Exam Type: CA echo limited Study Info Indications - afib Limited two-dimensional transthoracic echocardiogram is performed. Summary 1. Limited echocardiogram done to assess for atrial fibrillation. 2. Large extracardiac masses seen pushing on left and right atria. Unchanged from prior echo. 3. Patient is in atrial fibrillation. Left Atria Large extracardiac masses seen pushing on left and right atria. Unchanged from prior echo. Limited echocardiogram done to assess for atrial fibrillation. Patient is in atrial fibrillation. Ventricles Name Value Normal LV Dimensions 2D/MM IVS Diastolic Thickness (2D) 0.9 cm 0.6-1.0 LVID Diastole (2D) 3.5 cm 4.2-5.8 LVIW Diastolic Thickness (2D) 0.8 cm 0.6-1.0 LVID Systole (2D) 2.3 cm 2.5-4.0 LV Mass (2D Cubed) 80.39 g 88.00-224.00 LV Mass Index (2D Cubed) 53 g/m2 49-115 Relative Wall Thickness (2D) 0.44 LV Fractional Shortening/Ejection Fraction 2D/MM LV Fractional Shortening (2D) 34 % 25-43 LV EF (2D Teicholz) 64 % 52-72 Report Signatures
[2023-03-22] MEDS: METOPROLOL TARTRATE INJ 5 MG/5 ML VIAL IV PUSH (00:24)
[2023-03-22] MEDS: IPRATROPIUM BR 0.02% INH SOLN 0.5 MG/2.5 ML VIAL INHALATION (00:34)
[2023-03-22] MEDS: METOPROLOL TARTRATE INJ 5 MG/5 ML VIAL (02:00)
[2023-03-22] MEDS: CEFEPIME 2 GM/NS 50 ML 2 GM/50 ML BAG IVPB ×2 (02:52→14:14)
[2023-03-22] MEDS: CENTRAL LINE FLUSH 10 ML IV PUSH ×3 (04:26→21:08)
[2023-03-22 04:52] LABS: Immature Platelet Fraction Pct 12.4 % (0.9-11.2); Platelet Count Result 79 k/mm3 (150-375)
[2023-03-22 05:01] LABS: Estimated CRCL calculation 63 ml/min; Estimated Glomerular Filt Rate > 60
[2023-03-22 05:23] LABS: INR 2.1; Partial Thromboplastin Time 34.8 SECONDS (22.3-36.8); Prothrombin Time 22.4 Seconds (11.1-14.7)
[2023-03-22] MEDS: AMIODARONE HCL 200 MG TABLET PO (06:01)
[2023-03-22 06:28] LABS: Alanine Aminotransferase 24 U/L (6-50); Albumin Level 2.6 g/dL (3.5-5.1); Alkaline Phosphatase 77 U/L (38-126); Anion Gap 3 mmol/L (8-16); Aspartate Amino Transferase 22 U/L (17-59); Bilirubin,Total 2.3 mg/dL (0.2-1.3); Blood Urea Nitrogen 24 mg/dL (9-20); Calcium 12.7 mg/dL (8.4-10.2); Carbon Dioxide 30 mmol/L (22-30); Chloride 92 mmol/L (98-107); Estimated CRCL calculation 56 ml/min; Estimated Glomerular Filt Rate > 60; Glucose 70 mg/dL (65-110); Magnesium 1.9 mg/dL (1.6-2.3); Potassium 4.7 mmol/L (3.4-5.0); Sodium 125 mmol/L (137-145)
[2023-03-22 06:32] LABS: Hematocrit 30.2 % (42.0-52.0); Hemoglobin 9.6 g/dL (14.0-18.0); Immature Platelet Fraction Pct 13.1 % (0.9-11.2); Mean Corpuscular HGB Conc 31.8 g/dl (32-36); Mean Corpuscular Hemoglobin 24.7 pg (26-34); Mean Corpuscular Volume 77.6 fl (80-100); Platelet Count Result 74 k/mm3 (150-375); Red Blood Count 3.89 M/mm3 (4.6-6.20); Red Cell Distribution Width 18.9 % (11.5-14.5)
--- NOTE | 2023-03-22 07:03 | PM.EVENT ---
Event Note Event Note Event Note: Nursing staff called as the patient was having issues with paroxysmal AFib. The patient had been pretty much in AFib all night. The nurse practitioner in early evening hours as given 2 doses of digoxin and 1 dose of IV metoprolol. When nursing staff called me the patient's heart rate was in the 130s and his blood pressure was in the low 100s systolic. I gave a dose of IV Lopressor in the patient's blood pressure actually improved and heart rate dropped down into low 100s. They called me back about 4-1/2 hours later as the patient's heart rate had climbed back up in the 130s. Systolic blood pressures were again in the low 100s. Another dose of IV Lopressor was provided. I also provided orders to give p.r.n. IV Lopressor for heart rates persistently greater than 110 as long as systolic blood pressures were greater than 95. Also and electrolyte panel was added to the morning labs and a CBC was added to evaluate the patient's hemoglobin and white count given that his admission white count was 0.1. Also added a magnesium level to evaluate for other electrolyte disturbances given the patient's AFib with RVR. I would have to move the patient to the intermediate unit but there were no beds available.
[2023-03-22 08:10] LABS: White Blood Count 0.2 K/mm3 (4.5-10.0)
[2023-03-22] MEDS: SODIUM CHLORIDE 0.9% IV 500 ML IV CONT (09:02)
[2023-03-22] MEDS: FILGRASTIM-SNDZ 480 MCG/0.8 ML SYRINGE SUB-Q (09:03)
--- NOTE | 2023-03-22 11:07 | PM.IMPN ---
Progress Note: A&P Assessment and Plan (1) Hypotension: Code(s): I95.9 - Hypotension, unspecified Status: Acute Assessment and Plan: IV fluids (2) Dehydration: Code(s): E86.0 - Dehydration Status: Acute Assessment and Plan: IV fluids (3) Atrial fibrillation with rapid ventricular response: Code(s): I48.91 - Unspecified atrial fibrillation Status: Acute Assessment and Plan: Rates are elevated. Beta-shanna started. Cardiology consult. Complicated by dehydration and pleural effusion. Plan for thoracentesis later on. IV fluids started. (4) Neutropenia: Code(s): D70.9 - Neutropenia, unspecified Status: Acute Assessment and Plan: Positive blood cultures at outside facility. Start on IV vanc and cefepime. Re-culture. No fever documented. (5) Lung cancer: Code(s): C34.90 - Malignant neoplasm of unspecified part of unspecified bronchus or lung Status: Acute Assessment and Plan: Oncology consult. (6) Postobstructive pneumonia: Code(s): J18.9 - Pneumonia, unspecified organism Status: Acute Assessment and Plan: Likely. Chest x-ray noted possible pleural effusion. Will get a CT scan. Consider thoracentesis. (7) Pleural effusion: Code(s): J90 - Pleural effusion, not elsewhere classified Status: Acute Assessment and Plan: Thoracentesis ordered. Likely malignant Subjective Date/time seen: 03/22/23 11:07 No new complaints. AFib overnight. Blood pressure 90/60. Exam Narrative: General: alert and oriented Psych: appropriate mood nad affect Eyes: PERRLA Neck: Trachea midline, no new lesions Skin: no changes Lungs: Decreased lung sounds on the right Cardiac: Normal S1,S2, no MGR ABD: soft, nd, nt, nbs Ext: no new lesions, no cce Vasc: Pulses intact Objective Data Vital Signs Vital Signs: Vital Signs - 24 hr 03/21/23 12:00 03/21/23 16:00 03/21/23 17:51 Temperature 98.0 F Pulse Rate 94 95 95 Respiratory Rate 22 H Blood Pressure 104/72 Pulse Oximetry 92 Oxygen Delivery 03/21/23 19:05 03/21/23 19:09 03/21/23 19:12 Temperature Pulse Rate 96 96 96 Respiratory Rate 22 H 22 H 22 H Blood Pressure Pulse Oximetry 93 Oxygen Delivery Room Air 03/21/23 20:00 03/21/23 20:00 03/21/23 20:00 Temperature 97.5 F L Pulse Rate 94 94 93 Respiratory Rate 18 18 Blood Pressure 110/68 Pulse Oximetry 94 94 Oxygen Delivery Room Air 03/21/23 23:30 03/22/23 00:24 03/22/23 00:33 Temperature Pulse Rate 150 H 150 H 93 Respiratory Rate 20 Blood Pressure Pulse Oximetry Oxygen Delivery 03/22/23 00:38 03/22/23 00:00 03/22/23 02:00 Temperature Pulse Rate 95 129 H 150 H Respiratory Rate 20 Blood Pressure Pulse Oximetry Oxygen Delivery 03/22/23 04:00 03/22/23 06:01 03/22/23 06:46 Temperature Pulse Rate 130 H 120 H Respiratory Rate Blood Pressure 84/57 L Pulse Oximetry Oxygen Delivery 03/22/23 06:57 03/22/23 08:53 03/22/23 08:00 Temperature Pulse Rate 117 H Respiratory Rate Blood Pressure 90/64 L Pulse Oximetry Oxygen Delivery Room Air Intake/Output Intake/Output: Intake & Output 03/19/23 03/20/23 03/21/23 03/22/23 23:59 23:59 23:59 23:59 Intake Total 1540 2270 50 Output Total 250 850 250 Balance 1290 1420 -200 Meds/Results Medications: Active Medications Generic Name Dose Route Start Last Admin Trade Name Freq PRN Reason Stop Dose Admin Acetaminophen 650 mg 03/21/23 18:57 03/21/23 19:18 Acetaminophen 325 Mg Tablet PO 650 mg Q4H PRN Administration Pain 1-6 Amiodarone HCl 200 mg 03/21/23 08:00 03/22/23 06:01 Amiodarone Hcl 200 Mg Tablet PO 200 mg DAILY@0800 IRASEMA Administration Apixaban 5 mg 03/20/23 21:00 03/21/23 08:19 Apixaban 5 Mg Tablet PO 5 mg Q12HR IRASEMA Administration Cyanocobalamin 1,000 mcg 04
--- NOTE | 2023-03-22 13:13 | PM.CNNEP ---
Assessment and Plan Assessment and plan (1) Hyponatremia: Code(s): E87.1 - Hypo-osmolality and hyponatremia Status: Acute Assessment and Plan: as noted on this admission risk factors for this: active lung cancer (suspect primary culprit) COPD smoking pneumonia (?) narcotic use chronic pain prerenal factors check urine electrolytes, TSH, and cortisol along with serum/urine osmolality consider starting fluid restriction (but not sure he is reallying drinking that much to begin with) start low dose salt tabs consider start demeclocycline as well I worry that all interventions may be somewhat limited if this is indeed secondary to his underlying malignancy follow trend of repeat sodium levels (2) Hypotension: Code(s): I95.9 - Hypotension, unspecified Status: Acute Assessment and Plan: suspect partly related to prerenal factors (poor oral intake) however, issues with afib with RVR not helping infection (+ blood cultures) and early sepsis playing a role? follow trend of hemodynamics (3) Bacteremia: Code(s): R78.81 - Bacteremia Status: Acute Assessment and Plan: reportedly positive blood cultures at outside facility follow repeat cultures on IV antibiotics (4) Atrial fibrillation with rapid ventricular response: Code(s): I48.91 - Unspecified atrial fibrillation Status: Acute Assessment and Plan: attempt rate control strategy within limits of hemodynamics Cardiology consulted (5) Neutropenia: Code(s): D70.9 - Neutropenia, unspecified Status: Acute Assessment and Plan: likely secondary to chemotherapy dosed with Neupogen follow trend of WBC (6) Lung cancer: Code(s): C34.90 - Malignant neoplasm of unspecified part of unspecified bronchus or lung Status: Acute Assessment and Plan: on chemotherapy Oncology following poor prognosis Case discussed with Dr. Nathan as well as Dr. Hernadez. I will continue to follow the patient with you while remains hospitalized to make further recommendations during his hospital course Thank you for allowing me to participate in the care this patient. History of Present Illness Reason for Consult Consult date: 03/22/23 Reason for consult: hyponatremia Chief Complaint Chief complaint: Neutropenia/Lung Cancer/R Sided Pleural Effusion History of Present Illness Narrative: The patient is a unfortunate 67-year-old male with a past medical history as outlined below who was transferred from [facility] to [facility] for ongoing management of his acute medical issues and problems. The patient initially presented to the outside hospital with complaints of shortness of breath, poor appetite, fatigue, lethargy, and generalized weakness. Subsequent testing at the outside hospital demonstrated leukopenia and a chest x-ray with complete opacification of his right hemithorax. In association with his shortness of breath he has also had a cough productive of white/yellow sputum. He has developed chest discomfort /pain more so secondary to all the coughing that he is been doing. Coupled with these symptoms have been poor oral intake and generalized weight loss. As most of his care has been at [facility] as well as the fact that his oncologist is present hears well, he was transferred to [facility] for further evaluation and treatment. Since his admission, he has been having issues and problems with hypotension in association with AFib with RVR. Attempts at rate control have been partially successful but he continues to be in atrial fibrillation despite conservative therapy. Reportedly, blood cultures done at the outside hospital are apparently positive and subsequent repeat blood cultures have been done here with initiation of antibiotic therapy. There is some concern that his relative hypotension could be
--- NOTE | 2023-03-22 13:13 | P.CONNP_ITS ---
Assessment and Plan Assessment and plan (1) Hyponatremia: Code(s): E87.1 - Hypo-osmolality and hyponatremia Status: Acute Assessment and Plan: * as noted on this admission * risk factors for this: * active lung cancer (suspect primary culprit) * COPD * smoking * pneumonia (?) * narcotic use * chronic pain * prerenal factors * check urine electrolytes, TSH, and cortisol along with serum/urine osmolality * consider starting fluid restriction (but not sure he is reallying drinking that much to begin with) * start low dose salt tabs * consider start demeclocycline as well * I worry that all interventions may be somewhat limited if this is indeed secondary to his underlying malignancy * follow trend of repeat sodium levels (2) Hypotension: Code(s): I95.9 - Hypotension, unspecified Status: Acute Assessment and Plan: * suspect partly related to prerenal factors (poor oral intake) * however, issues with afib with RVR not helping * infection (+ blood cultures) and early sepsis playing a role? * follow trend of hemodynamics (3) Bacteremia: Code(s): R78.81 - Bacteremia Status: Acute Assessment and Plan: * reportedly positive blood cultures at outside facility * follow repeat cultures * on IV antibiotics (4) Atrial fibrillation with rapid ventricular response: Code(s): I48.91 - Unspecified atrial fibrillation Status: Acute Assessment and Plan: * attempt rate control strategy within limits of hemodynamics * Cardiology consulted (5) Neutropenia: Code(s): D70.9 - Neutropenia, unspecified Status: Acute Assessment and Plan: * likely secondary to chemotherapy * dosed with Neupogen * follow trend of WBC (6) Lung cancer: Code(s): C34.90 - Malignant neoplasm of unspecified part of unspecified bronchus or lung Status: Acute Assessment and Plan: * on chemotherapy * Oncology following * poor prognosis Case discussed with Dr. Nathan as well as Dr. Hernadez. I will continue to follow the patient with you while remains hospitalized to make further recommendations during his hospital course Thank you for allowing me to participate in the care this patient. History of Present Illness Reason for Consult Consult date: 03/22/23 Reason for consult: hyponatremia Chief Complaint Chief complaint: Neutropenia/Lung Cancer/R Sided Pleural Effusion History of Present Illness Narrative: The patient is a unfortunate 67-year-old male with a past medical history as outlined below who was transferred from [facility] to [facility] for ongoing management of his acute medical issues and problems. The patient initially presented to the outside hospital with complaints of shortness of breath, poor appetite, fatigue, lethargy, and generalized weakness. Subsequent testing at the outside hospital demonstrated leukopenia and a chest x-ray with complete opacification of his right hemithorax. In association with his shortness of breath he has also had a cough productive of white/yellow sputum. He has developed chest discomfort /pain more so secondary to all the coughing that he is been doing. Coupled with these symptoms have been poor oral intake and generalized weight loss. As most of his care has been at [facility] as well as the fact that his oncologist is present hears well, he was transferred to [facility] for further evaluation and treatment. Since his admission, he has been having iss
--- NOTE | 2023-03-22 14:12 | PM.CNCAR ---
Assessment and Plan Assessment and plan (1) Atrial fibrillation with rapid ventricular response: Code(s): I48.91 - Unspecified atrial fibrillation Status: Acute Plan this is a 67-year-old man with atrial fibrillation that is clearly the result of a thoracic malignancy. He has non-small cell lung cancer with opacification of his right hemithorax. He also has previously seen metastatic deposit adjacent to the heart compressing the right atrium. I suppose I will recommend advancing the dose of his amiodarone to oral loading dose of 400 mg q.8 hours. Obviously anything we do for this man is a pale E tip /a temporizing measure. He clearly is at the end of his life regarding this some malignancy and my principal right that he consider comfort measures/hospice level care. If he chooses that that I would suggest taking him off of telemetry altogether since it makes no sense in that setting to continue monitoring cardiac arrhythmias. It would be very unfortunate indeed to see a resuscitation effort take place should this gentleman suffered a cardiac arrest while he is in the hospital Baldo Hernadez MD [facility] History of Present Illness History of Present Illness Consult date/time: 03/22/23 14:12 Consult reason: atrial fibrillation Reason For Visit: Neutropenia/Lung Cancer/R Sided Pleural Effusion Narrative: This is a 67-year-old gentleman I am seeing at the request of the hospitalist's today to assist with management of atrial fibrillation. Patient is known to our service for the last couple of months he has been in the hospital several times with weakness and advancing metastatic lung cancer. The patient is known to have non-small cell lung cancer with occlusion of his right mainstem bronchus opacifying his right hemithorax and he has a sizable right-sided malignant pleural effusion. During his admission in December of this year his echocardiogram was done because of atrial fibrillation and he was seen to have a mass adjacent to the heart compressing the right atrium also an obvious malignant involvement. He was started on amiodarone he did convert to sinus rhythm. The patient is not a candidate for systemic anticoagulation. Because of his very poor prognosis we did not continue to follow him after that consultation. He continues to take amiodarone at 200 mg daily. He came back into the hospital a couple of days ago with symptoms of generalized fatigue weakness poor p.o. intake was found to be tachycardic and again is found to be in AFib with RVR with heart rates between 110 and 130. We have been asked to see him again for this reason. His chest x-ray shows opacification/ white out of his right hemithorax and his laboratory data is remarkable for significant neutropenia due to his recent chemotherapy. Despite all of this the patient is a full code patient and is resistant to the hospitalists suggestions to consider comfort measures/hospice referral. Review of Systems Constitutional: Constitutional: Reports as per HPI Eyes: Eyes: Reports no additional eye complaints ENT: Reports system reviewed and no additional complaints, except as documented Cardiovascular: Cardiovascular: Reports no additional cardiovascular complaints Respiratory: Respiratory: Reports dyspnea Gastrointestinal: Gastrointestinal: Reports nausea Musculoskeletal: Musculoskeletal: Reports no additional musculoskeletal complaints Integumentary/Breasts: Skin/Breast: Reports system reviewed and no additional complaints, except as docu Neurologic: Reports system reviewed and no additional complaints, except as documented Endocrine: Endocrine: Reports no additional endocrine complaints Hematologic/Lymphatic: Hematologic/Lymphatic: Reports no additional hematologic/lymphatic complaints PMFSH Past Medical History Medical History Cocaine abuse Clean since fall 2021. Nicotine dependence with robert
[2023-03-22] MEDS: METOPROLOL SUCCINATE EXT REL 25 MG TABCR PO (14:13)
[2023-03-22] MEDS: AMIODARONE HCL 200 MG TABLET 400 MG PO ×2 (14:14→21:07)
[2023-03-22 16:19] LABS: Vancomycin Trough 5.7 ug/mL (10.0-20.0)
[2023-03-22] MEDS: LACTATED RINGERS 1,000 ML 75 ML IV CONT (17:16)
[2023-03-22] MEDS: predniSONE 20 MG TABLET 40 MG PO (17:19)
[2023-03-22] MEDS: FERROUS SULFATE 324 MG TABLET PO (17:20)
[2023-03-22] MEDS: oxyCODONE/ACETAMINOPHEN (*CRX) 10-325 MG TABLET 1 TAB PO (18:29)
[2023-03-22 18:44] LABS: Anion Gap 3 mmol/L (8-16); Blood Urea Nitrogen 27 mg/dL (9-20); Calcium 12.6 mg/dL (8.4-10.2); Carbon Dioxide 29 mmol/L (22-30); Chloride 91 mmol/L (98-107); Estimated CRCL calculation 63 ml/min; Estimated Glomerular Filt Rate > 60; Glucose 234 mg/dL (65-110); Potassium 4.1 mmol/L (3.4-5.0); Sodium 123 mmol/L (137-145)
[2023-03-22] MEDS: SODIUM CHLORIDE 0.9% IV 1,000 ML 75 ML IV CONT (21:07)
[2023-03-22] MEDS: guaiFENesin 12 HR 600 MG TABCR 1200 MG PO (21:07)
[2023-03-22] MEDS: SODIUM CHLORIDE 500 MG TABLET PO (21:07)
--- NOTE | 2023-03-22 22:19 | ECG_ITS ---
Measurements Intervals Bryant Rate: 85 P: 34 NH: 157 QRS: -45 QRSD: 117 T: 0 QT: 330 QTc: 394 Interpretive Statements SINUS RHYTHM POSSIBLE LEFT ATRIAL ENLARGEMENT [-0.1mV P WAVE IN V1/V2] LEFT ANTERIOR FASCICULAR BLOCK [QRS AXIS <= -45, QR IN I, RS IN II] NONSPECIFIC T-WAVE ABNORMALITY ABNORMAL ECG COMPARED WITH 01/01/2023 INVERTED T-WAVES V4 THROUGH V6 Electronically Signed On 03-23-2023 7:26:22 CDT by Baldo Hernadez M.D.
[2023-03-23] VITALS (13 sets, daily range): BP systolic 95–123; BP diastolic 58–91; PULSE 80–86; RESP 16–24; TEMP 35.8–36.3; O2SAT 90–96
[2023-03-23] MEDS: CEFEPIME 2 GM/NS 50 ML 2 GM/50 ML BAG IVPB ×2 (01:08→14:04)
[2023-03-23] MEDS: VANCOMYCIN HCL 1,000 MG in SODIUM CHLORIDE 0.9% IV 250 ML 250 MG IVPB ×2 (05:38→17:25)
[2023-03-23] MEDS: CENTRAL LINE FLUSH 10 ML IV PUSH ×3 (05:38→20:59)
--- NOTE | 2023-03-23 06:52 | PC.NURSE ---
Called and spoke to sister Valeria to see if she could come up and sit with pt today. Pt is more confused, only oriented to self, and refusing medications and labs at this point. She asked if he could have pain medication, explained that if his orientation improves and vitals are still stable, we can readdress.
[2023-03-23 08:03] LABS: Anion Gap 2 mmol/L (8-16); Blood Urea Nitrogen 30 mg/dL (9-20); Calcium 13.1 mg/dL (8.4-10.2); Carbon Dioxide 30 mmol/L (22-30); Chloride 97 mmol/L (98-107); Estimated CRCL calculation 63 ml/min; Estimated Glomerular Filt Rate > 60; Glucose 67 mg/dL (65-110); Sodium 129 mmol/L (137-145)
--- NOTE | 2023-03-23 09:32 | PM.PNCARD ---
Progress Note: A&P Assessment and Plan (1) Atrial fibrillation with RVR: Code(s): I48.91 - Unspecified atrial fibrillation Status: Acute Plan 67-year-old man with metastatic lung cancer atrial fibrillation undoubtedly related to malignant involvement of his chest. He is back in sinus rhythm after having an increased dose of amiodarone yesterday. At this point I believe it is in his best interest to recommend comfort level care and DNR status. I will reduce his amiodarone dosage down to a daily dosage and at this point I have no additional cardiac recommendations. In my opinion he does not have to remain on telemetry. Baldo Hernadez MD [facility] Subjective Date/time seen: Date of service: 03/23/23 09:32 Interval history: Follow-up visit in this 67-year-old man with: Unfortunate diagnosis of metastatic non-small cell lung cancer with apparent terminal prognosis. Patient being seen by our service because of atrial fibrillation. Amiodarone dosage increased yesterday patient is back in sinus rhythm today. He is resting comfortably in room 200 for some reason he has been moved to IMU. Patient is refusing all medications this morning Exam Const: Other: Very cachectic white male resting comfortably HENMT: Mouth: Yes dry mucous membranes Eyes: Sclera: sclerae normal Neck: Neck: supple and no JVD Resp: Other: Breath sounds absent on the right hemithorax Cardio: Rate: regular rate Rhythm: regular rhythm GI: GI Palp: Yes Soft to palpation Auscultation: normal bowel sounds Skin: General skin exam: normal color Neuro: Other: Very sleepy Extrem: Other: No peripheral edema adequate perfusion Objective Data Vital Signs Vital Signs: Vital Signs - 24 hr 03/22/23 11:42 03/22/23 12:00 03/22/23 14:13 Temperature Pulse Rate 135 H 141 H 134 H Respiratory Rate Blood Pressure 89/64 L Pulse Oximetry Oxygen Delivery 03/22/23 14:14 03/22/23 15:42 03/22/23 16:29 Temperature 36.6 C 36.3 C L Pulse Rate 134 H 124 H 115 H Respiratory Rate 20 20 Blood Pressure 102/81 98/67 L Pulse Oximetry 92 94 Oxygen Delivery 03/22/23 20:00 03/22/23 21:07 03/22/23 20:00 Temperature 36.2 C L Pulse Rate 119 H 121 H Respiratory Rate 18 Blood Pressure 107/64 Pulse Oximetry 98 Oxygen Delivery Room Air 03/22/23 20:00 03/22/23 22:00 03/22/23 23:49 Temperature Pulse Rate 119 H 87 Respiratory Rate Blood Pressure Pulse Oximetry Oxygen Delivery Room Air 03/23/23 00:00 03/23/23 00:00 03/23/23 02:00 Temperature 36.3 C L Pulse Rate 84 86 85 Respiratory Rate 18 Blood Pressure 102/58 L Pulse Oximetry 90 Oxygen Delivery 03/23/23 04:00 03/23/23 04:00 03/23/23 04:00 Temperature 36.1 C L Pulse Rate 81 83 Respiratory Rate 18 Blood Pressure 95/72 L Pulse Oximetry 92 Oxygen Delivery Room Air 03/23/23 06:00 03/23/23 08:00 03/23/23 08:00 Temperature 35.9 C L Pulse Rate 84 80 83 Respiratory Rate 20 Blood Pressure 99/67 L Pulse Oximetry 91 Oxygen Delivery Intake/Output Intake/Output: Intake & Output 03/20/23 03/21/23 03/22/23 03/23/23 23:59 23:59 23:59 23:59 Intake Total 1540 2270 1690 902 Output Total 250 850 250 Balance 1290 1420 1440 902 Meds/Results Medications: Active Medications Generic Name Dose Route Start Last Admin Trade Name Freq PRN Reason Stop Dose Admin Acetaminophen 650 mg 03/21/23 18:57 03/21/23 19:18 Acetaminophen 325 Mg Tablet PO 650 mg Q4H PRN Administration Pain 1-6 Amiodarone HCl 400 mg 03/24/23 09:00 Amiodarone Hcl 200 Mg Tablet PO DAILY IRASEMA Apixaban 5 mg 03/20/23 21:00 03/21/23 08:19 Apixaban 5 Mg Tablet PO 5 mg Q12HR IRASEMA Administration Cyanocobalamin 1,000 mcg 03/21/23 09:00 03/23/23 08:52 Cyanocobalamin 1,000 Mcg Tablet PO Not Given DAILY IRASEMA Ferrous Sulfate 324 mg 03/20/23 17:00 03/23/23 08:52 Ferrous S
[2023-03-23 09:38] LABS: Hemoglobin 9.7 g/dL (14.0-18.0); Immature Platelet Fraction Pct 17.8 % (0.9-11.2); Mean Corpuscular HGB Conc 31.3 g/dl (32-36); Mean Corpuscular Hemoglobin 25.1 pg (26-34); Mean Corpuscular Volume 80.1 fl (80-100); Platelet Count Result 63 k/mm3 (150-375); Red Blood Count 3.87 M/mm3 (4.6-6.20); Red Cell Distribution Width 19.3 % (11.5-14.5); White Blood Count 2.7 K/mm3 (4.5-10.0)
--- NOTE | 2023-03-23 09:49 | PM.IMPN ---
Progress Note: A&P Assessment and Plan (1) Hypotension: Code(s): I95.9 - Hypotension, unspecified Status: Acute Assessment and Plan: Improved (2) Dehydration: Code(s): E86.0 - Dehydration Status: Acute Assessment and Plan: Improved (3) Atrial fibrillation with rapid ventricular response: Code(s): I48.91 - Unspecified atrial fibrillation Status: Acute Assessment and Plan: Appreciate cardiology input. Now in sinus rhythm. (4) Neutropenia: Code(s): D70.9 - Neutropenia, unspecified Status: Acute Assessment and Plan: Positive blood cultures at outside facility. Continue on IV vanc and cefepime. Re-culture. No fever documented. Repeat cultures negative. Cultures from outside facility did show strep pneumoniae. Monitor white blood cell count (5) Lung cancer: Code(s): C34.90 - Malignant neoplasm of unspecified part of unspecified bronchus or lung Status: Acute Assessment and Plan: Oncology consult. (6) Postobstructive pneumonia: Code(s): J18.9 - Pneumonia, unspecified organism Status: Acute Assessment and Plan: Continue antibiotics. (7) Pleural effusion: Code(s): J90 - Pleural effusion, not elsewhere classified Status: Acute Assessment and Plan: Thoracentesis ordered. Likely malignant Subjective Date/time seen: 03/23/23 09:49 Feeling better, not on oxygen. Unable to perform thoracentesis yesterday secondary to no fluid. Exam Narrative: General: alert and oriented Psych: appropriate mood nad affect Eyes: PERRLA Neck: Trachea midline, no new lesions Skin: no changes Lungs: Decreased lung sounds on the right Cardiac: Normal S1,S2, no MGR ABD: soft, nd, nt, nbs Ext: no new lesions, no cce Vasc: Pulses intact Objective Data Vital Signs Vital Signs: Vital Signs - 24 hr 03/22/23 11:42 03/22/23 12:00 03/22/23 14:13 Temperature Pulse Rate 135 H 141 H 134 H Respiratory Rate Blood Pressure 89/64 L Pulse Oximetry Oxygen Delivery 03/22/23 14:14 03/22/23 15:42 03/22/23 16:29 Temperature 97.9 F 97.4 F L Pulse Rate 134 H 124 H 115 H Respiratory Rate 20 20 Blood Pressure 102/81 98/67 L Pulse Oximetry 92 94 Oxygen Delivery 03/22/23 20:00 03/22/23 21:07 03/22/23 20:00 Temperature 97.2 F L Pulse Rate 119 H 121 H Respiratory Rate 18 Blood Pressure 107/64 Pulse Oximetry 98 Oxygen Delivery Room Air 03/22/23 20:00 03/22/23 22:00 03/22/23 23:49 Temperature Pulse Rate 119 H 87 Respiratory Rate Blood Pressure Pulse Oximetry Oxygen Delivery Room Air 03/23/23 00:00 03/23/23 00:00 03/23/23 02:00 Temperature 97.3 F L Pulse Rate 84 86 85 Respiratory Rate 18 Blood Pressure 102/58 L Pulse Oximetry 90 Oxygen Delivery 03/23/23 04:00 03/23/23 04:00 03/23/23 04:00 Temperature 97.0 F L Pulse Rate 81 83 Respiratory Rate 18 Blood Pressure 95/72 L Pulse Oximetry 92 Oxygen Delivery Room Air 03/23/23 06:00 03/23/23 08:00 03/23/23 08:00 Temperature 96.6 F L Pulse Rate 84 80 83 Respiratory Rate 20 Blood Pressure 99/67 L Pulse Oximetry 91 Oxygen Delivery Intake/Output Intake/Output: Intake & Output 03/20/23 03/21/23 03/22/23 03/23/23 23:59 23:59 23:59 23:59 Intake Total 1540 2270 1690 902 Output Total 250 850 250 Balance 1290 1420 1440 902 Meds/Results Medications: Active Medications Generic Name Dose Route Start Last Admin Trade Name Freq PRN Reason Stop Dose Admin Acetaminophen 650 mg 03/21/23 18:57 03/21/23 19:18 Acetaminophen 325 Mg Tablet PO 650 mg Q4H PRN Administration Pain 1-6 Amiodarone HCl 400 mg 03/24/23 09:00 Amiodarone Hcl 200 Mg Tablet PO DAILY IRASEMA Apixaban 5 mg 03/20/23 21:00 03/21/23 08:19 Apixaban 5 Mg Tablet PO 5 mg Q12HR IRASEMA Administration Cyanocobalamin 1,000 mcg 03/21/23 09:00
--- NOTE | 2023-03-23 09:53 | P.PNNP_ITS ---
Progress Note: A&P Assessment and Plan (1) Hyponatremia: Code(s): E87.1 - Hypo-osmolality and hyponatremia Status: Acute Assessment and Plan: * as noted on this admission * risk factors for this: * active lung cancer (suspect primary culprit) * COPD * smoking * pneumonia (?) * narcotic use * chronic pain * prerenal factors * Urine electrolytes non pre renal * Cortisol 111 and TSH normal * The patient is NPO. * Sodium level is gradually improving. * Overall prognosis is grim. (2) Hypotension: Code(s): I95.9 - Hypotension, unspecified Status: Acute Assessment and Plan: * Multiple issues here. * He has bacteremia and possible aspiration issues and so probably infection is playing a role. * Patient look mildly dehydrated. * He is getting IV fluids and antibiotics * (3) Bacteremia: Code(s): R78.81 - Bacteremia Status: Acute Assessment and Plan: * reportedly positive blood cultures at outside facility * follow repeat cultures * on IV antibiotics (4) Atrial fibrillation with rapid ventricular response: Code(s): I48.91 - Unspecified atrial fibrillation Status: Acute Assessment and Plan: * attempt rate control strategy within limits of hemodynamics * Cardiology consulted (5) Neutropenia: Code(s): D70.9 - Neutropenia, unspecified Status: Acute Assessment and Plan: * likely secondary to chemotherapy * dosed with Neupogen * follow trend of WBC (6) Lung cancer: Code(s): C34.90 - Malignant neoplasm of unspecified part of unspecified bronchus or lung Status: Acute Assessment and Plan: * on chemotherapy * Oncology following * poor prognosis Subjective Date/time seen: 03/23/23 09:53 Interval history: Patient is weak and tired. No shortness of breath. Lying flat in bed Review of Systems Cardiovascular: Cardiovascular: Reports no additional cardiovascular complaints Respiratory: Respiratory: Reports no additional respiratory complaints Gastrointestinal: Gastrointestinal: Reports no additional gastrointestinal complaints Genitourinary: Genitourinary: Reports no additional male genitourinary complaints Exam Narrative: WDWN cachectic male in NAD skin no rash head ncat lungs coarse bilaterally decreased breath sounds on the right cor reg no rub abd BS+ nontender and soft ext no edema. Objective Data Vital Signs Vital Signs: Vital Signs - 24 hr 03/22/23 11:42 03/22/23 12:00 03/22/23 14:13 Temperature Pulse Rate 135 H 141 H 134 H Respiratory Rate Blood Pressure 89/64 L Pulse Oximetry Oxygen Delivery 03/22/23 14:14 03/22/23 15:42 03/22/23 16:29 Temperature 97.9 F 97.4 F L Pulse Rate 134 H 124 H 115 H Respiratory Rate 20 20 Blood Pressure 102/81 98/67 L Pulse Oximetry 92 94 Oxygen Delivery 03/22/23 20:00 03/22/23 21:07 03/22/23 20:00 Temperature 97.2 F L Pulse Rate 119 H 121 H Respiratory Rate 18 Blood Pressure 107/64 Pulse Oximetry 98 Oxygen Delivery Room Air 03/22/23 20:00 03/22/23 22:
--- NOTE | 2023-03-23 09:53 | PM.PNNEP ---
Progress Note: A&P Assessment and Plan (1) Hyponatremia: Code(s): E87.1 - Hypo-osmolality and hyponatremia Status: Acute Assessment and Plan: as noted on this admission risk factors for this: active lung cancer (suspect primary culprit) COPD smoking pneumonia (?) narcotic use chronic pain prerenal factors Urine electrolytes non pre renal Cortisol 111 and TSH normal The patient is NPO. Sodium level is gradually improving. Overall prognosis is grim. (2) Hypotension: Code(s): I95.9 - Hypotension, unspecified Status: Acute Assessment and Plan: Multiple issues here. He has bacteremia and possible aspiration issues and so probably infection is playing a role. Patient look mildly dehydrated. He is getting IV fluids and antibiotics (3) Bacteremia: Code(s): R78.81 - Bacteremia Status: Acute Assessment and Plan: reportedly positive blood cultures at outside facility follow repeat cultures on IV antibiotics (4) Atrial fibrillation with rapid ventricular response: Code(s): I48.91 - Unspecified atrial fibrillation Status: Acute Assessment and Plan: attempt rate control strategy within limits of hemodynamics Cardiology consulted (5) Neutropenia: Code(s): D70.9 - Neutropenia, unspecified Status: Acute Assessment and Plan: likely secondary to chemotherapy dosed with Neupogen follow trend of WBC (6) Lung cancer: Code(s): C34.90 - Malignant neoplasm of unspecified part of unspecified bronchus or lung Status: Acute Assessment and Plan: on chemotherapy Oncology following poor prognosis Subjective Date/time seen: 03/23/23 09:53 Interval history: Patient is weak and tired. No shortness of breath. Lying flat in bed Review of Systems Cardiovascular: Cardiovascular: Reports no additional cardiovascular complaints Respiratory: Respiratory: Reports no additional respiratory complaints Gastrointestinal: Gastrointestinal: Reports no additional gastrointestinal complaints Genitourinary: Genitourinary: Reports no additional male genitourinary complaints Exam Narrative: WDWN cachectic male in NAD skin no rash head ncat lungs coarse bilaterally decreased breath sounds on the right cor reg no rub abd BS+ nontender and soft ext no edema. Objective Data Vital Signs Vital Signs: Vital Signs - 24 hr 03/22/23 11:42 03/22/23 12:00 03/22/23 14:13 Temperature Pulse Rate 135 H 141 H 134 H Respiratory Rate Blood Pressure 89/64 L Pulse Oximetry Oxygen Delivery 03/22/23 14:14 03/22/23 15:42 03/22/23 16:29 Temperature 97.9 F 97.4 F L Pulse Rate 134 H 124 H 115 H Respiratory Rate 20 20 Blood Pressure 102/81 98/67 L Pulse Oximetry 92 94 Oxygen Delivery 03/22/23 20:00 03/22/23 21:07 03/22/23 20:00 Temperature 97.2 F L Pulse Rate 119 H 121 H Respiratory Rate 18 Blood Pressure 107/64 Pulse Oximetry 98 Oxygen Delivery Room Air 03/22/23 20:00 03/22/23 22:00 03/22/23 23:49 Temperature Pulse Rate 119 H 87 Respiratory Rate Blood Pressure Pulse Oximetry Oxygen Delivery Room Air 03/23/23 00:00 03/23/23 00:00 03/23/23 02:00 Temperature 97.3 F L Pulse Rate 84 86 85 Respiratory Rate 18 Blood Pressure 102/58 L Pulse Oximetry 90 Oxygen Delivery 03/23/23 04:00 03/23/23 04:00 03/23/23 04:00 Temperature 97.0 F L Pulse Rate 81 83 Respiratory Rate 18 Blood Pressure 95/72 L Pulse Oximetry 92 Oxygen Delivery Room Air 03/23/23 06:00 03/23/23 08:00 03/23/23 08:00 Temperature 96.6 F L Pulse Rate 84 80 83 Respiratory Rate 20 Blood Pressure 99/67 L Pulse Oximetry 91 Oxygen Delivery Intake/Output Intake/Output: Intake & Output 03/20/23 03/21/23 03/22/23 03/23/23 23:59 23:59 23:59 23:59 Intake Total 1540 2270 1690 902 Output Total 503 613
[2023-03-23] MEDS: oxyCODONE/ACETAMINOPHEN (*CRX) 10-325 MG TABLET 1 TAB PO (10:39)
[2023-03-23 10:52] LABS: Band Neutrophils Percent 39 % (0-6); Lymphocytes Absolute Manual 0.54 K/mm3 (1.1-4.5); Metamyelocytes Percent 4 %; Monocytes Absolute Manual 0.21 K/mm3 (0.1-0.90); Monocytes Percent Manual 8 % (3-9); Neutrophils Absolute Manual 1.83 K/mm3 (1.3-6.7); Neutrophils Percent Manual 29 % (46-73); Nucleated Red Blood Cells 7 %; Platelet Estimate Decreased (Adequate); Schistocytes None Seen (NORMAL); Total Cells Counted 75
[2023-03-23 10:53] LABS: Anisocytosis 1+ (NORMAL); Burr Cells 2+ (NORMAL)
[2023-03-23] MEDS: SODIUM CHLORIDE 0.9% IV 1,000 ML 75 ML IV CONT (14:03)
[2023-03-24] VITALS (9 sets, daily range): BP systolic 100–120; BP diastolic 65–75; PULSE 82–96; RESP 16–28; TEMP 35.8–36.3; O2SAT 94–98
--- NOTE | 2023-03-24 01:00 | PC.NURSE ---
Gilberto Garcia [facility] [phone]
--- NOTE | 2023-03-24 01:21 | PC.NURSE ---
Sister Valeria called to check on pt, informed her pt has still been confused, and has been very drowsy. Vitals have been relatively stable, but overall condition is not improving. Valeria agreed to change pt's code status to DNR. She is considering hospice.
[2023-03-24] MEDS: CEFEPIME 2 GM/NS 50 ML 2 GM/50 ML BAG IVPB ×2 (02:36→15:56)
[2023-03-24 04:56] LABS: Glucose Point of Care 74 mg/dl (65-105)
[2023-03-24] MEDS: CENTRAL LINE FLUSH 10 ML IV PUSH ×2 (06:00→15:57)
[2023-03-24 06:17] LABS: Vancomycin Trough 13.8 ug/mL (10.0-20.0)
[2023-03-24 07:55] LABS: Anion Gap 4 mmol/L (8-16); Blood Urea Nitrogen 30 mg/dL (9-20); Calcium 13.3 mg/dL (8.4-10.2); Carbon Dioxide 30 mmol/L (22-30); Chloride 100 mmol/L (98-107); Estimated CRCL calculation 73 ml/min; Estimated Glomerular Filt Rate > 60; Glucose 69 mg/dL (65-110); Potassium 3.7 mmol/L (3.4-5.0); Sodium 134 mmol/L (137-145)
--- NOTE | 2023-03-24 08:42 | P.PNNP_ITS ---
Progress Note: A&P Assessment and Plan (1) Hyponatremia: Code(s): E87.1 - Hypo-osmolality and hyponatremia Status: Acute Assessment and Plan: * as noted on this admission * risk factors for this: * active lung cancer (suspect primary culprit) * COPD * smoking * pneumonia (?) * narcotic use * chronic pain * prerenal factors * Urine electrolytes non pre renal * Cortisol 111 and TSH normal * The patient now on a diet. Taking very little in orally. * Sodium level is better. I will not use fluid restriction on this person. * Overall prognosis is grim. (2) Hypotension: Code(s): I95.9 - Hypotension, unspecified Status: Acute Assessment and Plan: * Multiple issues here. * He has bacteremia and possible aspiration issues and so probably infection is playing a role. * Patient look mildly dehydrated. * He is getting IV fluids and antibiotics (3) Bacteremia: Code(s): R78.81 - Bacteremia Status: Acute Assessment and Plan: * reportedly positive blood cultures at outside facility * follow repeat cultures * on IV antibiotics (4) Atrial fibrillation with rapid ventricular response: Code(s): I48.91 - Unspecified atrial fibrillation Status: Acute Assessment and Plan: * attempt rate control strategy within limits of hemodynamics * Cardiology consulted (5) Neutropenia: Code(s): D70.9 - Neutropenia, unspecified Status: Acute Assessment and Plan: * likely secondary to chemotherapy * dosed with Neupogen * follow trend of WBC (6) Lung cancer: Code(s): C34.90 - Malignant neoplasm of unspecified part of unspecified bronchus or lung Status: Acute Assessment and Plan: * on chemotherapy * Oncology following * poor prognosis Subjective Date/time seen: 03/24/23 08:42 Interval history: Patient is weak and tired. Sitting up at the side of the bed looking at his breakfast but not eating. No shortness of breath. He just does not feel well. Exam Narrative: WDWN cachectic male in NAD skin no rash head ncat lungs coarse bilaterally decreased breath sounds on the right cor reg no rub or gallop abd BS+ nontender and soft ext no edema or cyanosis. Objective Data Vital Signs Vital Signs: Vital Signs - 24 hr 03/23/23 12:00 03/23/23 10:00 03/23/23 12:00 Temperature 97.1 F L Pulse Rate 84 83 83 Respiratory Rate 24 H Blood Pressure 115/71 Pulse Oximetry 90 Oxygen Delivery 03/23/23 12:00 03/23/23 14:00 03/23/23 16:00 Temperature 96.5 F L Pulse Rate 81 80 Respiratory Rate 16 Blood Pressure 117/91 H Pulse Oximetry 91 Oxygen Delivery Room Air 03/23/23 16:00 03/23/23 16:00 03/23/23 18:00 Temperature Pulse Rate 80 83 Respiratory Rate Blood Pressure Pulse Oximetry Oxygen Delivery Room Air 03/23/23 20:00 03/23/23 20:00 03/23/23 20:00 Temperature 96.8 F L Pulse Rate 84 81 Respiratory Rate 20 Blood Pressure 101/68 Pulse Oximetry 96 Oxygen Delivery Room Air 03/23/23 23:46 03/24/23
--- NOTE | 2023-03-24 08:42 | PM.PNNEP ---
Progress Note: A&P Assessment and Plan (1) Hyponatremia: Code(s): E87.1 - Hypo-osmolality and hyponatremia Status: Acute Assessment and Plan: as noted on this admission risk factors for this: active lung cancer (suspect primary culprit) COPD smoking pneumonia (?) narcotic use chronic pain prerenal factors Urine electrolytes non pre renal Cortisol 111 and TSH normal The patient now on a diet. Taking very little in orally. Sodium level is better. I will not use fluid restriction on this person. Overall prognosis is grim. (2) Hypotension: Code(s): I95.9 - Hypotension, unspecified Status: Acute Assessment and Plan: Multiple issues here. He has bacteremia and possible aspiration issues and so probably infection is playing a role. Patient look mildly dehydrated. He is getting IV fluids and antibiotics (3) Bacteremia: Code(s): R78.81 - Bacteremia Status: Acute Assessment and Plan: reportedly positive blood cultures at outside facility follow repeat cultures on IV antibiotics (4) Atrial fibrillation with rapid ventricular response: Code(s): I48.91 - Unspecified atrial fibrillation Status: Acute Assessment and Plan: attempt rate control strategy within limits of hemodynamics Cardiology consulted (5) Neutropenia: Code(s): D70.9 - Neutropenia, unspecified Status: Acute Assessment and Plan: likely secondary to chemotherapy dosed with Neupogen follow trend of WBC (6) Lung cancer: Code(s): C34.90 - Malignant neoplasm of unspecified part of unspecified bronchus or lung Status: Acute Assessment and Plan: on chemotherapy Oncology following poor prognosis Subjective Date/time seen: 03/24/23 08:42 Interval history: Patient is weak and tired. Sitting up at the side of the bed looking at his breakfast but not eating. No shortness of breath. He just does not feel well. Exam Narrative: WDWN cachectic male in NAD skin no rash head ncat lungs coarse bilaterally decreased breath sounds on the right cor reg no rub or gallop abd BS+ nontender and soft ext no edema or cyanosis. Objective Data Vital Signs Vital Signs: Vital Signs - 24 hr 03/23/23 12:00 03/23/23 10:00 03/23/23 12:00 Temperature 97.1 F L Pulse Rate 84 83 83 Respiratory Rate 24 H Blood Pressure 115/71 Pulse Oximetry 90 Oxygen Delivery 03/23/23 12:00 03/23/23 14:00 03/23/23 16:00 Temperature 96.5 F L Pulse Rate 81 80 Respiratory Rate 16 Blood Pressure 117/91 H Pulse Oximetry 91 Oxygen Delivery Room Air 03/23/23 16:00 03/23/23 16:00 03/23/23 18:00 Temperature Pulse Rate 80 83 Respiratory Rate Blood Pressure Pulse Oximetry Oxygen Delivery Room Air 03/23/23 20:00 03/23/23 20:00 03/23/23 20:00 Temperature 96.8 F L Pulse Rate 84 81 Respiratory Rate 20 Blood Pressure 101/68 Pulse Oximetry 96 Oxygen Delivery Room Air 03/23/23 23:46 03/24/23 00:00 03/24/23 03:07 Temperature 97.0 F L Pulse Rate 85 Respiratory Rate 20 Blood Pressure 123/80 Pulse Oximetry 95 Oxygen Delivery Room Air Room Air 03/23/23 22:00 03/24/23 00:00 03/24/23 02:00 Temperature Pulse Rate 85 85 85 Respiratory Rate Blood Pressure Pulse Oximetry Oxygen Delivery 03/24/23 04:00 03/24/23 04:00 03/24/23 06:00 Temperature 97.3 F L Pulse Rate 83 82 96 Respiratory Rate 22 H Blood Pressure 100/65 Pulse Oximetry 94 Oxygen Delivery 03/24/23 08:00 Temperature Pulse Rate 90 Respiratory Rate Blood Pressure Pulse Oximetry Oxygen Delivery Intake/Output Intake/Output: Intake & Output 03/21/23 03/22/23 03/23/23 03/24/23 23:59 23:59 23:59 23:59 Intake Total 2270 1690 1840 900 Output Total 850 250 Balance 1420 1440 1840 900 Meds/Results Medications: Active Medications G
[2023-03-24] MEDS: oxyCODONE/ACETAMINOPHEN (*CRX) 10-325 MG TABLET 1 TAB PO ×2 (08:47→15:26)
[2023-03-24] MEDS: VANCOMYCIN HCL 1,250 MG in SODIUM CHLORIDE 0.9% IV 250 ML 166.67 MG IVPB (09:42)
--- NOTE | 2023-03-24 11:50 | PM.IMPN ---
Progress Note: A&P Assessment and Plan (1) Hypotension: Code(s): I95.9 - Hypotension, unspecified Status: Acute Assessment and Plan: Improved (2) Dehydration: Code(s): E86.0 - Dehydration Status: Acute Assessment and Plan: Improved (3) Atrial fibrillation with rapid ventricular response: Code(s): I48.91 - Unspecified atrial fibrillation Status: Acute Assessment and Plan: Appreciate cardiology input. Now in sinus rhythm. (4) Neutropenia: Code(s): D70.9 - Neutropenia, unspecified Status: Acute Assessment and Plan: Positive blood cultures at outside facility. Continue on IV vanc and cefepime. Re-culture. No fever documented. Repeat cultures negative. Cultures from outside facility did show strep pneumoniae. Monitor white blood cell count (5) Lung cancer: Code(s): C34.90 - Malignant neoplasm of unspecified part of unspecified bronchus or lung Status: Acute Assessment and Plan: Oncology consult. (6) Postobstructive pneumonia: Code(s): J18.9 - Pneumonia, unspecified organism Status: Acute Assessment and Plan: Continue antibiotics. (7) Pleural effusion: Code(s): J90 - Pleural effusion, not elsewhere classified Status: Acute Assessment and Plan: Thoracentesis performed. Unable to get any fluid. Plan Patient is now wanting comfort measures. Hospice has been consulted Subjective Date/time seen: 03/24/23 11:50 Patient reports he has a lot of pain. Is now wanting pain control comfort measures Exam Narrative: General: alert and oriented Psych: appropriate mood nad affect Eyes: PERRLA Neck: Trachea midline, no new lesions Skin: no changes Lungs: Decreased lung sounds on the right Cardiac: Normal S1,S2, no MGR ABD: soft, nd, nt, nbs Ext: no new lesions, no cce Vasc: Pulses intact Objective Data Vital Signs Vital Signs: Vital Signs - 24 hr 03/23/23 12:00 03/23/23 12:00 03/23/23 12:00 Temperature 97.1 F L Pulse Rate 84 83 Respiratory Rate 24 H Blood Pressure 115/71 Pulse Oximetry 90 Oxygen Delivery Room Air 03/23/23 14:00 03/23/23 16:00 03/23/23 16:00 Temperature 96.5 F L Pulse Rate 81 80 Respiratory Rate 16 Blood Pressure 117/91 H Pulse Oximetry 91 Oxygen Delivery Room Air 04/22/23 16:00 03/23/23 18:00 03/23/23 20:00 Temperature 96.8 F L Pulse Rate 80 83 84 Respiratory Rate 20 Blood Pressure 101/68 Pulse Oximetry 96 Oxygen Delivery 03/23/23 20:00 03/23/23 20:00 03/23/23 23:46 Temperature 97.0 F L Pulse Rate 81 85 Respiratory Rate 20 Blood Pressure 123/80 Pulse Oximetry 95 Oxygen Delivery Room Air 03/24/23 00:00 03/24/23 03:07 03/23/23 22:00 Temperature Pulse Rate 85 Respiratory Rate Blood Pressure Pulse Oximetry Oxygen Delivery Room Air Room Air 03/24/23 00:00 03/24/23 02:00 03/24/23 04:00 Temperature 97.3 F L Pulse Rate 85 85 83 Respiratory Rate 22 H Blood Pressure 100/65 Pulse Oximetry 94 Oxygen Delivery 03/24/23 04:00 03/24/23 06:00 03/24/23 08:00 Temperature Pulse Rate 82 96 90 Respiratory Rate Blood Pressure Pulse Oximetry Oxygen Delivery 03/24/23 08:00 Temperature 96.4 F L Pulse Rate 90 Respiratory Rate 16 Blood Pressure 111/67 Pulse Oximetry 98 Oxygen Delivery Intake/Output Intake/Output: Intake & Output 03/21/23 03/22/23 03/23/23 03/24/23 23:59 23:59 23:59 23:59 Intake Total 2270 1690 1840 900 Output Total 850 250 Balance 1420 1440 1840 900 Meds/Results Medications: Active Medications Generic Name Dose Route Start Last Admin Trade Name Darline PRN Reason Stop Dose Admin Acetaminophen 650 mg 03/21/23 18:57 03/21/23 19:18 Acetaminophen 325 Mg Tablet PO 650 mg Q4H PRN Administration Pain 1-6 Amiodarone HCl 400 mg 03/24/23 09:00 Amiodarone Hcl 200 Mg Tablet PO DA
[2023-03-24] MEDS: MORPHINE SULFATE (*CRX) 2 MG/ML INJ IV PUSH (18:06)
--- NOTE | 2023-04-01 09:56 | P.DS_ITS ---
DS: Admitting Diagnosis Discharge Date 03/24/23 Admitting Diagnosis lung cancer neutropenia obstructive pneumonia DS: Discharge Diagnosis Discharge Diagnosis (1) Hypotension: Code(s): I95.9 - Hypotension, unspecified Status: Acute Assessment and Plan: Improved (2) Dehydration: Code(s): E86.0 - Dehydration Status: Acute Assessment and Plan: Improved (3) Atrial fibrillation with rapid ventricular response: Code(s): I48.91 - Unspecified atrial fibrillation Status: Acute Assessment and Plan: Appreciate cardiology input. Now in sinus rhythm. (4) Neutropenia: Code(s): D70.9 - Neutropenia, unspecified Status: Acute Assessment and Plan: Positive blood cultures at outside facility. Continue on IV vanc and cefepime. Re-culture. No fever documented. Repeat cultures negative. Cultures from outside facility did show strep pneumoniae. Monitor white blood cell count (5) Lung cancer: Code(s): C34.90 - Malignant neoplasm of unspecified part of unspecified bronchus or lung Status: Acute Assessment and Plan: Oncology consult. (6) Postobstructive pneumonia: Code(s): J18.9 - Pneumonia, unspecified organism Status: Acute Assessment and Plan: Continue antibiotics. (7) Pleural effusion: Code(s): J90 - Pleural effusion, not elsewhere classified Status: Acute Assessment and Plan: Thoracentesis performed. Unable to get any fluid. Plan Patient is now wanting comfort measures. Hospice has been consulted DS: Summary Hospital Course Hospital Course: admitted for fever, pna, + bc, neutropenia, lung cancer sp chemo patient progressively got worse and wanted comfort measures Time Spent with Patient Time attestation: Total time spent providing and/or coordinating discharge services: Exam Narrative: General: alert and oriented Psych: appropriate mood nad affect Eyes: PERRLA Neck: Trachea midline, no new lesions Skin: no changes Lungs: Decreased lung sounds on the right Cardiac: Normal S1,S2, no MGR ABD: soft, nd, nt, nbs Ext: no new lesions, no cce Vasc: Pulses intact Discharge Plan Discharge Consulting providers: Carlos Norton; Baldo Hernadez; Tanika Willson; Roger Keith; Francie Church Rafe M.; Laila Thomas; Huey Deshpande; Bayron Muniz Patient Disposition: Hospice [facility] Inpatient Discharge Instructions: Per Care Coordination Patient has been accepted by [facility] for RN visits. [phone] RN please fax completed discharge isntructions to [phone] Patient Instructions: Antibiotic Form, Apixaban (By mouth), How to Stop Smoking (GEN), Cigarette Smoking and Your Health (GEN) Stand Alone Forms: General Discharge Information Date of admission: 03/20/23 16:37 Primary Care Provider: UNKNOWN,DOCTOR Admitting Provider: Baldo Nathan Attending physician on admission: Baldo Nathan
== END 2023-03-24 18:55 | disposition hospice, inpatient (51) | DRG 180 ==
LOC: ANH2MED 03-21 13:27 → ANHIMU 03-22 16:21
PROVIDERS: Family Medicine; Internal Medicine; Internal Medicine Nephrology; Admitting Provider Chiropractor; Visit Provider Chiropractor
DX: C34.91 Malignant neoplasm of unspecified part of right bronchus or lung (principal); E43 Unspecified severe protein-calorie malnutrition; J18.9 Pneumonia, unspecified organism; J90 Pleural effusion, not elsewhere classified; Z68.1 Body mass index [BMI] 19.9 or less, adult; E87.1 Hypo-osmolality and hyponatremia; C79.89 Secondary malignant neoplasm of other specified sites; D70.9 Neutropenia, unspecified; E86.0 Dehydration; F17.210 Nicotine dependence, cigarettes, uncomplicated; F12.90 Cannabis use, unspecified, uncomplicated; I48.0 Paroxysmal atrial fibrillation; I95.9 Hypotension, unspecified; J06.9 Acute upper respiratory infection, unspecified; R16.0 Hepatomegaly, not elsewhere classified; Z92.21 Personal history of antineoplastic chemotherapy
CPT/HCPCS: 36415; 71045; 71250; 76604; 80048; 80053; 80202; 82533; 82565; 82947; 82948; 83615; 83735; 83930; 84155; 85025; 85027; 85049; 85055; 85610; 85730; 87040; 87081; 87086; 93005; 93308; 94640; A9270; J0692; J1160; J1642; J2270; J3370; J7030; J7040; J7050; J7120; J7512; Q5101

== ENCOUNTER 2023-03-24 19:26 | HOS | payer OTHER, MEDICARE, MEDICAID, SELFPAY ==
[2023-03-24] MEDS: MORPHINE SULFATE INJ (*CRX) 10 MG/ML AMP 6 MG IV PUSH (19:55)
--- NOTE | 2023-03-24 20:04 | PC.NURSE ---
Multiple family members including his sister and grandson have stated verbal agreement with the grandson being POA.
[2023-03-24] MEDS: LORazepam INJ (*CRX) 2 MG/ML VIAL 1 MG IV PUSH (20:23)
[2023-03-24 20:36] VITALS: PULSE 80; RESP 22
[2023-03-24] MEDS: MORPHINE 50 MG/NS 100ML (*CRX) 50 MG/100 ML BAG 6 MG IV CONT (20:36)
[2023-03-24 23:05] VITALS: BP 115/77; PULSE 73; RESP 24; TEMP 36.5; O2SAT 100
[2023-03-25 08:00] VITALS: BP 98/85; PULSE 135; RESP 21; TEMP 36.4; O2SAT 75
[2023-03-25] MEDS: ARTIFICIAL TEARS OPHTH SOLN 15 ML BOTTLE 1 DROP EACH EYE ×2 (08:36→21:16)
[2023-03-25] MEDS: GLYCOPYRROLATE INJ (*SP) 0.2 MG/ML VIAL 0.1 MG IV PUSH ×3 (08:55→19:56)
[2023-03-25] MEDS: LORazepam INJ (*CRX) 2 MG/ML VIAL 1 MG IV PUSH ×2 (08:55→16:02)
--- NOTE | 2023-03-25 10:29 | PC.NURSE ---
This patient, Alonso Camara, was received from IMU on 03/25/23 at 0850. Patient/family oriented to unit policies and routines
[2023-03-25 10:55] VITALS: BP 124/94; PULSE 80; RESP 17; TEMP 36.7; O2SAT 91
[2023-03-25] MEDS: MORPHINE 50 MG/NS 100ML (*CRX) 50 MG/100 ML BAG 6 MG IV CONT (12:22)
--- NOTE | 2023-03-25 12:31 | PM.IMHP ---
H&P: HPI History of Present Illness Date/Time: 03/25/23 12:31 Chief Complaint: uncontrolled pain Narrative: 67 y/o male was recently diagnosed with metastatic lung cancer. He had a port placed and underwent 3 cycles of unknown type of chemotx. He was seen at [place] and blood cultures were positive. He presented to [place] 03/20 with uncontrolled generalized pain, dyspnea at rest, and large right pleural effusion. He was treated with vanc and cefepime. He had been taking up to 60mg of oxycodone per day w/o relief of his pain. Due to intolerance of chemotx, declining functional status, and uncontrolled pain, he opted for inpatient hospice. Since initiation of IV morphine 3mg/hr last PM, he has remained comfortable. He did receive one prn lorazepam 1mg iv last pm as well. Review of Systems Review of Systems: ROS unobtainable: Yes unobtainable due to medical condition PMFSH Past Medical History Medical History Cocaine abuse Clean since fall 2021. Nicotine dependence with current use Squamous cell carcinoma of right lung Surgical History Surgical History History of open reduction and internal fixation (ORIF) procedure Right hip pinning. Family History Family History Mother COPD (chronic obstructive pulmonary disease) Sibling Lung cancer Father Brain cancer Social History Social History Social History: Surrogate decision maker: Gilberto Garcia, grandson. Code status: DNR Smoking packs per day: 0.2 Smoking cigarettes per day: 4.0 Years smoked: 25 Smoking pack-years: 5.00 Smoking status: Current every day smoker Tobacco type: cigarettes Additional smoking assessment comments: Down to 1 cigarette a day. Alcohol intake: never Drinks per week: 4 Substance use: current Substance use type: marijuana Other substance usage details: 03/14/23 Last use: 12/13/2022 Lack of Transportation: No Lack of Food: Never True Current Housing: I Have Housing Concerned About Future Housing: No Difficulty Paying Gas/Electric Bills: No Difficulty Paying for Meds: No Currently Unemployed: No Education: Grade School Difficulty w/ Childcare or Family Care: No Living arrangements: with family Additional living arrangements comments: Patient lives in his own apartment. Grandson and his family are currently staying with him until they can get on her feet. Additional occupation/education comments: Next retired, on social security. Spiritual care concerns: No Meds Home Medications and Allergies Home Medications Medication Instructions Recorded Confirmed Type cyanocobalamin (vitamin B-12) 1,000 mcg PO DAILY #30 caps 10/24/22 03/24/23 Rx 1,000 mcg capsule ferrous sulfate 325 mg (65 mg 325 mg PO BIDWM #60 tabs 10/24/22 03/24/23 Rx iron) tablet amiodarone 200 mg tablet (Pacerone) 200 mg PO DAILY@0800 #30 tabs 12/07/22 03/24/23 Rx hydrocodone 5 mg-acetaminophen 325 1 tablet PO Q4H PRN Pain Rated 4-6 12/07/22 03/24/23 Rx mg tablet #12 tabs apixaban 5 mg tablet (Eliquis) 5 mg PO Q12HR #60 tabs 01/05/23 03/24/23 Rx ipratropium bromide 0.02 % 0.5 mg (2.5 mL) inhalation Q6HRT 01/05/23 03/24/23 Rx solution for inhalation PRN Shortness Of Breath #60 mL saliva substitute combo no.9 15 ml PO QID PRN Dry Mouth #500 mL 01/05/23 03/24/23 Rx (Biotene Dry Mouth Oral Rinse mouthwash) Allergies Allergy/AdvReac Type Severity Reaction Status Date / Time No Known Allergies Allergy Verified 01/18/23 08:33 Vital Signs Vital Signs - 24 hr 03/24/23 20:36 03/24/23 20:00 03/24/23 23:05 Temperature 97.7 F Pulse Rate 80 73 Respiratory Rate 22 H 24 H Blood Pressure 115/77 Pulse Oximetry 100 Oxygen Delivery Nasal Cannula Oxygen Flow Rate 2 03/25/23
--- NOTE | 2023-03-25 18:31 | PC.NURSE ---
On 03/25/23, the student, Martine Holcomb RN LP, provided care and completed [facility] documentation on this patient. I have reviewed the student's documentation and agree with the findings.
[2023-03-25 19:59] VITALS: PULSE 80; RESP 17; O2SAT 91
[2023-03-25 20:23] VITALS: BP 90/69; PULSE 74; RESP 18; TEMP 36.4; O2SAT 95
[2023-03-26] MEDS: GLYCOPYRROLATE INJ (*SP) 0.2 MG/ML VIAL 0.1 MG IV PUSH ×2 (00:02→04:11)
[2023-03-26] MEDS: LORazepam INJ (*CRX) 2 MG/ML VIAL 1 MG IV PUSH (02:31)
[2023-03-26] MEDS: MORPHINE 50 MG/NS 100ML (*CRX) 50 MG/100 ML BAG 6 MG IV CONT (05:54)
[2023-03-26] MEDS: ARTIFICIAL TEARS OPHTH SOLN 15 ML BOTTLE 1 DROP EACH EYE (05:55)
--- NOTE | 2023-03-26 06:35 | PC.NURSE ---
Spoke with Anupama from [facility] about pt needing marie catheter as well as having increasing secretions not responding to robinul. Informed by Anupama that a nurse will be by today to address these needs.
--- NOTE | 2023-03-26 09:45 | PC.NURSE ---
Called into patient room at 0818 by visitor at bedside. Charge Nurse went in an assessed patient. Patient had time of was 0820.
--- NOTE | 2023-03-26 12:19 | P.DN_ITS ---
Discharge Summary Date and Time Date of : 03/26/23 Time of : 08:20 Provider Pronounced By: Laila Marx RN Probable Cause of Probable Cause of : metastatic squamous cell lung cancer Summary Hospital Course: Admitted to inpatient hospice due to uncontrolled pain and dyspnea. Medications were titrated to comfort. Mr. Camara peacefully. Additional Data Confirmation of as documented by pronouncing clinician: Pupillary Reflex, Palpable Pulses, Response to Stimuli, Heart Tones and Breath Sounds Name of Provider Notified: Dr. Grimaldo Time Provider Notified: 08:51 Provider Requests Autopsy: No Family Requests Autopsy: No [employer] Dimensional [employer] Instructor Notified: Yes Date [facility] Notified of : 03/26/23 Time [facility] Notified of : 08:40
== END 2023-03-26 08:20 | disposition expired | DRG 951 ==
LOC: ANHIMU 20:04 → ANH2MED 03-25 08:30
PROVIDERS: Admitting Provider Internal Medicine; Visit Provider Internal Medicine
DX: Z51.5 Encounter for palliative care (principal); C34.91 Malignant neoplasm of unspecified part of right bronchus or lung; R78.81 Bacteremia; J90 Pleural effusion, not elsewhere classified; R52 Pain, unspecified; R06.00 Dyspnea, unspecified; Z66 Do not resuscitate
CPT/HCPCS: A9270; J2060; J2270